=== PATIENT | male | born 1950 | race Caucasian/White ===

== ENCOUNTER 2016-11-07 19:14 | Inpatient (IN) ==
--- NOTE | 2016-11-07 21:27 | XRay Report ---
History: Fever Date: 11/07/2016 Study: Chest x-ray AP portable Comparison exam: April 19, 2016 There is cardiomegaly. The mediastinal contours are unchanged. There is mild ectasia of the thoracic aorta. The patient is status post previous median sternotomy. The pulmonary vasculature is slightly prominent. There is some patchy and hazy infiltrate in the right mid to lower lung more so than the left. There is also some mild platelike atelectasis in the left base.. There is no gross pleural effusion. Osseous structures are unchanged. There is moderate thoracic spondylosis. Impression: Right greater than left bibasilar pneumonia. Platelike atelectasis left lower lobe. Cardiomegaly and suspected mild pulmonary venous hypertension PROCEDURE INTERPRETED AT [facility] DEPARTMENT OF RADIOLOGY Final Report Signed by: Dr. Laura Alexander
[2016-11-07] MEDS ORDERED: ALBUTEROL/IPRATROPIUM 3 ML NEB RESP TX STA (22:07)
[2016-11-07] MEDS ORDERED: cefTRIAXone 1,000 MG in SODIUM CHLORIDE 0.9% 100 ML IV STA (22:08)
[2016-11-07] MEDS ORDERED: ACETAMINOPHEN 325 MG TABLET PO PRN (22:23)
--- NOTE | 2016-11-07 22:32 | Emergency Department Note ---
IAkshat Kasabria, am scribing for, and in the presence of, Zaira Schneider DO 21 :02. IWyatt Debra, DO, personally performed the services described in this documentation, ascribed by Ramiro Oden in my presence, and it is both accurate and complete . Arrival - Arrival Chief Complaint: Fever Stated Complaint: Chills, hot flashes, chest pains ED Nursing Triage Note: C/C fever, aching all over started today. Mode of Arrival: Ambulatory Limitations: No Limitations Source: Patient - History of Present Illness HPI Narrative: This is a 66 y/o white male presenting to the ED with c/o cold, fever, chills, and pedal edema that onset two-three days ago. Pt states he has been sick with a cold and his SOB has increased. Pt is taking breaths between words. He denies chest pain, nausea, vomiting, diarrhea, abdominal pain, dysuria, and SAUCEDO. Pt has a hernia to his abdomen and a PMHx of HTN, diabetes, CHF, CAD, VSD repaired as a child, [place], reoccurring cellulites of the right lower extremity. Onset (ago): day(s) (2-3) Consistency: constant Severity: moderate Allergies/Adverse Reactions: Allergies Allergy/AdvReac Type Severity Reaction Status Date / Time diphenhydramine Allergy RASH Verified 11/07/16 19:22 [From Benadryl] Penicillins Allergy RASH Verified 11/07/16 19:22 Home Medications: Home Medications Medication Instructions Recorded Confirmed Type Furosemide Tab [Lasix Tab] 20 mg PO DAILY 01/04/15 11/07/16 History Docusate Sodium Cap [Colace Cap] 100 mg PO DAILY PRN 04/06/15 11/07/16 History Ferrous Sulfate Tab [Feosol 325 mg PO TID 04/06/15 11/07/16 History Original Tab] Finasteride 5 mg PO DAILY 04/06/15 11/07/16 History Potassium Chloride Cap/Tab [K Dur] 10 meq PO DAILY 04/06/15 11/07/16 History Aspirin EC Tab 81 mg PO DAILY 04/08/15 11/07/16 History Amiodarone HCl [Pacerone] 200 mg PO DAILY 01/31/16 11/07/16 History Atorvastatin Calcium 20 mg PO BEDTIME 01/31/16 11/07/16 History Calcium (Carb)/Vit D 500-200 1 tablet PO TID 01/31/16 11/07/16 History [Oscal 500 + D] Fluticasone 50 Mcg Nasal [place] 2 spray BOTH NARES DAILY 01/31/16 11/07/16 History [Flonase Nasal [place]] Ipratropium 0.03% Nasal [place] 2 spray BOTH NARES TID 01/31/16 11/07/16 History [Atrovent 0.03% Nasal [place]] [place]-3 Fatty Acids [Fish Oil] 1,000 mg PO BID 01/31/16 11/07/16 History Sertraline [Zoloft] 100 mg PO DAILY 01/31/16 11/07/16 History Tamsulosin HCl 0.4 mg PO BID 01/31/16 11/07/16 History sitaGLIPtin [Januvia] 100 mg PO DAILY 01/31/16 11/07/16 History Ketotifen Fumarate [Ketotifen 1 drop BOTH EYES BID 04/16/16 11/07/16 History 0.025% Oph Soln] glipiZIDE [Glucotrol] 10 mg PO BID W/MEALS #60 tablet 04/22/16 11/07/16 Rx Carvedilol [Coreg] 3.125 mg PO BID #60 tablet 07/23/16 11/07/16 Rx Clindamycin HCl [Clindamycin Cap] 300 mg PO Q8HR #20 capsule 07/23/16 11/07/16 Rx Levothyroxine Tab [Synthroid Tab] 200 mcg PO DAILY@0700 #30 tablet 07/23/16 Rx Review of System - Review of System 12 point system: reviewed and no additional remarkable complaints except as stated - Review of System Constitutional: Present: fever. Absent: chills, weakness Eyes: Absent: vision change Head/Ears/Nose/Throat: Absent: nasal drainage Respiratory: Present: cough. Absent: wheezing Cardiovascular: Present: dyspnea on exertion, edema. Absent: chest pain Gastrointestinal: Absent: abdominal pain, nausea, vomiting, diarrhea Genitourinary male: Absent: dysuria Musculoskeletal: Absent: arm pain, back pain, leg pain, neck pain Skin: Absent: rash Neurological: Absent: headache, weakness, numbness, confusion, abnormal gait, vertigo Psychiatric: Absent: anxiety Endocrine: Absent: fatigue Hematological/Lymphatic: Absent: easy bleeding Allergic/Immunologic: Absent: facial swelling Medical,Surgical,& Family Hx - Medical History Cardio: History of: Congenital Heart Disease (VSD repair as child), CHF, CAD, Hypertension, [place], Valvular Heart Disease Psychological: History of: Depression (was hospitalized April 06-- following drug overdose), Previous Suicide Attempt (drug overdose in March 2015 ), Psychiatric Problems (PT reports depressed mood aeb sadness, crying spells, and hopelessness) No history of: Behavior Problems, Violent Behavior Neurology: History of: Cerebrovascular Accident (2010. then a heat stroke also) , Peripheral Neuropathy, TIA HEENT: History of: Ear Problem (HEARING AIDS BOTH EARS) Endocrine: History of: Diabetes Mellitus (IDDM), Diabetes Mellitus (NIDDM), Dyslipidemia, Thyroid Disorder Respiratory: History of: Bronchitis, COPD, Obstructive Sleep Apnea (ON CPAP AT NIGHT), Pneumonia, Respiratory Problems Renal: History of: Renal Problems (renal insufficiency) Genitourinary: History of: Kidney Stones Gastrointestinal: History of: GERD, Polyps No history of: Gastrointestinal Bleed Musculoskeletal: History of: Back/Neck Problems, Musculoskeletal Problems ( right leg problems) No history of: Amputation Hematology: History of: Anemia (chronic disease) Other: History of: Skin Problems (patient has had recurrent cellulitis of his right lower extremity) - Surgical History Cardiac Surgeries: Sugical HX of: Cardiac Catheterization, Cardiac Surgery ( aortic valve replacement in September [address] Jaimes) Thoracic Surgeries: Surgical HX of;: Lithotripsy Patient denies;: Lobectomy Abdominal Surgeries: Surgical HX of: EGD, Hernia Repair (2002) Patient denies: Gastric Bypass Surgery Reproductive Surgeries: Patient denies;: Vasectomy Orthopedic Surgeries: Surgical HX of;: Orthopedic Surgery (left knee surgery) - Family History Family History: Reports;: Family Cancer (SISTER MOTHER), Family Diabetes, Family Heart Disease (SISTER MOTHER), Family Psychiatric Problems (COUSIN ALZHEIMERS) - Social History Smoking Status: Never smoker Frequency of Alcohol Use: None Type of Drug Use: None Exam Vital Signs: Vital Signs Temperature 99.2 F 11/07/16 19:18 Pulse Rate 131 H 11/07/16 19:50 Respiratory Rate 95 H 11/07/16 19:50 Blood Pressure 164/85 11/07/16 19:50 O2 Sat by Pulse Oximetry 95 03/18/17 19:50 - General General appearance: alert, in no apparent distress - Head Head exam: Present: atraumatic, normocephalic, normal inspection - Eye Eye exam: Present: normal appearance, PERRL, EOMI - ENT ENT exam: Present: normal exam, normal oropharynx, mucous membranes moist, TM's normal bilaterally, normal external ear exam - Neck Neck exam: Present: normal inspection, full ROM, trachea midline. Absent: tenderness - Chest Chest inspection: Present: normal inspection, symmetric chest wall rise. Absent : tenderness - Respiratory Respiratory exam: Present: rhonchi (bilaterally ). Absent: normal lung sounds bilaterally - Cardiovascular Cardiovascular exam: Present: regular rate, normal rhythm, normal heart sounds. Absent: irregular rhythm - Abdominal Exam Abdominal exam: Present: soft, normal bowel sounds, hernia (midline ). Absent: tenderness, guarding - Extremities Exam Extremities exam: Present: full ROM, normal capillary refill, pedal edema ( bilaterally +3), other (cellulitis to the right lower extremity ). Absent: tenderness, calf tenderness - Back Exam Back exam: Present: normal inspection, full ROM. Absent: tenderness - Neurological Exam Neurological exam: Present: alert, oriented X3, CN II-XII intact, normal gait, reflexes normal - Psychiatric Psychiatric exam: Present: normal affect, normal mood - Skin Skin exam: Present: warm, dry, intact, normal color. Absent: diaphoresis, erythema Course Course Narrative: spoke with DR Rodriguez who will see pt in the am . Disposition Clinical Impression: Pneumonia Case discussed with: patient Disposition: Still a Patient Condition: Stable Time of Disposition: 22:23
[2016-11-07 22:47] LABS: Basophils % 0.3 % (0.0-0.8); Eosinophils # 0.1 10*3/uL (0.0-0.87); Eosinophils % 0.6 % (0.00-10.9); Hematocrit 44.8 VOL% (42.0-52.0); Hemoglobin 14.7 GM/DL (14.0-18.0); Immature Granulocytes % 1.2 %; Immature Granulocytes Absolute 0.16 #; Lymphocytes # 0.3 10*3/uL (1.4-4.0); Lymphocytes % 2.2 % (21.2-54.2); Mean Corpuscular HGB Conc 32.8 GM/DL (32-36); Mean Corpuscular Hemoglobin 29 PG (27-34); Mean Platelet Volume 13.7 FL (9.6-12.0); Monocytes # 0.9 10*3/uL (0.11-0.8); Monocytes % 6.5 % (1.7-12.7); Neutrophils # 12.1 10*3/uL (1.4-7.4); Neutrophils % 89.2 % (38.7-73.9); Platelet Count 90 T/CUMM (130-400); Red Blood Count 5.09 MC/CUMM (3.8-5.5); Red Cell Distribution Width 13.4 % (9.3-17.3); White Blood Count 13.6 T/CUMM (4-12)
[2016-11-07] MEDS: ALBUTEROL/IPRATROPIUM 3 ML NEB RESP TX SCH (22:55)
[2016-11-07] MEDS ORDERED: cefTRIAXone 1,000 MG VIAL ONE (22:57)
[2016-11-07 23:04] LABS: Albumin 3.8 G/DL (3.4-5.0); Bilirubin,Total 0.7 MG/DL (0.2-1.0); Calcium 8.7 MG/DL (8.5-10.1); Osmolality,Calculated 298.5 MOS/KG (273-304); Potassium 4.1 MMOL/L (3.5-5.1); Total Protein 6.5 G/DL (6.4-8.3)
[2016-11-07] MEDS ORDERED: HYDROcodone/CHLORPHENIRAMINE ER 5 ML UDCUP PO ONE ×2 (23:16→23:17)
[2016-11-07] MEDS ORDERED: INSULIN REGULAR 100 UNIT/ML IV ONE (23:38)
[2016-11-07] MEDS ORDERED: INSULIN REGULAR 100 UNIT/ML ONE (23:45)
[2016-11-08] MEDS ORDERED: ACETAMINOPHEN 500 MG TABLET ONE (00:06)
[2016-11-08] MEDS ORDERED: ACETAMINOPHEN 500 MG TABLET PO ONE (00:07)
[2016-11-08] MEDS ORDERED: SODIUM CHLORIDE 0.9% 1,000 ML IV STA (00:07)
[2016-11-08] MEDS ORDERED: AZITHROMYCIN 500 MG VIAL IV ONE (00:47)
[2016-11-08 01:03] LABS: Band Neutrophils 1 % (0-10); Lymphocytes 4 % (20-55); Platelet Estimate Decreased; Segmented Neutrophils 93 % (50-85); Total Cells Counted 100
[2016-11-08] MEDS: AZITHROMYCIN INJ 500 MG in SODIUM CHLORIDE 0.9% 250 ML IV SCH (01:42)
[2016-11-08] MEDS: ALBUTEROL/IPRATROPIUM 3 ML NEB RESP TX SCH ×6 (03:53→23:36)
[2016-11-08] MEDS ORDERED: DEXTROMETHORPHAN ER 6 MG/ML 90 ML/BOTTLE PO PRN (07:15)
[2016-11-08] MEDS: FLUTICASONE 50 MCG NASAL SPRAY 16 GM BOTTLE BOTH NARES SCH (08:30)
[2016-11-08] MEDS: OMEGA 3 ACID ETHYL ESTERS 1 GM CAPSULE PO SCH ×2 (08:30→23:15)
[2016-11-08] MEDS: TAMSULOSIN 0.4 MG CAPSULE PO SCH ×2 (08:31→23:15)
[2016-11-08] MEDS: PANTOPRAZOLE 40 MG TABLET PO SCH (08:31)
[2016-11-08] MEDS: sitaGLIPtin 100 MG TABLET PO SCH (08:31)
[2016-11-08] MEDS: FERROUS SULFATE 325 MG TABLET PO SCH ×3 (08:31→23:15)
[2016-11-08] MEDS: FINASTERIDE 5 MG TABLET PO SCH (08:31)
[2016-11-08] MEDS: POTASSIUM CHLORIDE 10 MEQ TABLET PO SCH (08:31)
[2016-11-08] MEDS: DOCUSATE SODIUM 100 MG CAPSULE PO SCH ×2 (08:31→23:15)
[2016-11-08] MEDS: ASPIRIN EC 81 MG TABLET PO SCH (08:31)
[2016-11-08] MEDS: BENZONATATE 100 MG CAPSULE PO SCH ×3 (08:31→23:14)
[2016-11-08] MEDS: SERTRALINE 50 MG TABLET PO SCH (08:31)
[2016-11-08] MEDS: glipiZIDE 10 MG TABLET PO SCH ×2 (08:31→18:03)
[2016-11-08] MEDS: CALCIUM (CARBONATE)/VITAMIN D 500 MG-200 UNIT TABLET PO SCH ×3 (08:31→23:14)
[2016-11-08] MEDS: CARVEDILOL 3.125 MG TABLET PO SCH ×2 (08:32→18:03)
[2016-11-08] MEDS: IPRATROPIUM 0.03% NASAL SPRAY 30 ML BOTTLE BOTH NARES SCH ×2 (08:32→14:23)
[2016-11-08] MEDS: AMIODARONE 200 MG TABLET PO SCH (08:32)
[2016-11-08] MEDS: INSULIN REGULAR 100 UNIT/ML SUBCUT SCH ×4 (08:32→23:15)
[2016-11-08] MEDS: ENOXAPARIN 40 MG/0.4 ML SYRINGE SUBCUT SCH (08:32)
[2016-11-08] MEDS: FUROSEMIDE 20 MG TABLET PO SCH (08:32)
[2016-11-08] MEDS ORDERED: KETOTIFEN FUMARATE BOTH EYES SCH (09:00)
--- NOTE | 2016-11-08 09:33 | Pulmonology Consult Note ---
Assessment and Plan (1) Type 2 diabetes mellitus Status: Chronic Assessment and plan: The patient has diabetes and his glucose is elevated Current Visit: No (2) Hypertension Status: Chronic Assessment and plan: Blood pressure will be monitored. Current Visit: No Qualifiers: Hypertension type: essential hypertension Qualified Code(s): I10 - Essential (primary) hypertension (3) Hypothyroidism Status: Chronic Assessment and plan: He will continue with thyroid replacement. Current Visit: No Qualifiers: Hypothyroidism type: acquired Qualified Code(s): E03.9 - Hypothyroidism, unspecified (4) S/P AVR (aortic valve replacement) Status: Chronic Assessment and plan: Patient has had previous heart surgery but is stable Current Visit: No (5) Cellulitis of right leg Status: Acute Assessment and plan: Patient has chronic phlebitis of his legs. Current Visit: No (6) Pneumonia Status: Acute Assessment and plan: He will continue with respiratory therapy and antibiotics. Current Visit: Yes History of Present Illness Chief complaint: Persistent cough History of present illness: Mr. Duarte is a 66 year old white male that is followed by Dr. Harrington and comes in stating that he has had a persistent cough for several weeks. He has a history of having hypertension, hypothyroidism, diabetes and has had previous heart surgery. He says he has never smoked or had any lung problems. The last few days his cough is worse and he may have a little fever. He is admitted for pneumonia. He still coughing a lot but is not having that much trouble breathing. Home Medications Medication Instructions Recorded Confirmed Type Furosemide Tab [Lasix Tab] 20 mg PO DAILY 01/04/15 11/07/16 History Docusate Sodium Cap [Colace Cap] 100 mg PO DAILY PRN 04/06/15 11/07/16 History Ferrous Sulfate Tab [Feosol 325 mg PO TID 04/06/15 11/07/16 History Original Tab] Finasteride 5 mg PO DAILY 04/06/15 11/07/16 History Potassium Chloride Cap/Tab [K Dur] 10 meq PO DAILY 04/06/15 11/07/16 History Aspirin EC Tab 81 mg PO DAILY 04/08/15 11/07/16 History Amiodarone HCl [Pacerone] 200 mg PO DAILY 01/31/16 11/07/16 History Atorvastatin Calcium 20 mg PO BEDTIME 01/31/16 11/07/16 History Calcium (Carb)/Vit D 500-200 1 tablet PO TID 01/31/16 11/07/16 History [Oscal 500 + D] Fluticasone 50 Mcg Nasal [place] 2 spray BOTH NARES DAILY 01/31/16 11/07/16 History [Flonase Nasal [place]] Ipratropium 0.03% Nasal [place] 2 spray BOTH NARES TID 01/31/16 11/07/16 History [Atrovent 0.03% Nasal [place]] [place]-3 Fatty Acids [Fish Oil] 1,000 mg PO BID 01/31/16 11/07/16 History Sertraline [Zoloft] 100 mg PO DAILY 01/31/16 11/07/16 History Tamsulosin HCl 0.4 mg PO BID 01/31/16 11/07/16 History sitaGLIPtin [Januvia] 100 mg PO DAILY 01/31/16 11/07/16 History Ketotifen Fumarate [Ketotifen 1 drop BOTH EYES BID 04/16/16 11/07/16 History 0.025% Oph Soln] glipiZIDE [Glucotrol] 10 mg PO BID W/MEALS #60 tablet 04/22/16 11/07/16 Rx Carvedilol [Coreg] 3.125 mg PO BID #60 tablet 07/23/16 11/07/16 Rx Clindamycin HCl [Clindamycin Cap] 300 mg PO Q8HR #20 capsule 07/23/16 11/07/16 Rx Levothyroxine Tab [Synthroid Tab] 200 mcg PO DAILY@0700 #30 tablet 07/23/16 Rx Allergies Allergy/AdvReac Type Severity Reaction Status Date / Time diphenhydramine Allergy RASH Verified 11/07/16 19:22 [From Benadryl] Penicillins Allergy RASH Verified 11/07/16 19:22 - Constitutional Constitutional: Present: chills, fatigue, fever(s). Absent: weight gain - EENT Eyes: Absent: loss of vision Ears: Absent: decreased hearing Nose, mouth and throat: Absent: dysphagia, headache(s), sinus pressure, sore throat - Cardiovascular Cardiovascular: Present: dyspnea on exertion, edema. Absent: chest pain at rest , dyspnea, palpitations - Respiratory Respiratory: Present: cough, dyspnea on exertion. Absent: hemoptysis, change in phlegm color - Gastrointestinal Gastrointestinal: Absent: abdominal pain, change in bowel habits, dysphagia, nausea, vomiting - Genitourinary Genitourinary: Absent: difficulty urinating, dysuria, hematuria - Musculoskeletal Musculoskeletal: Absent: arthralgias, joint swelling, muscle weakness - Neurological Neurological: Absent: abnormal speech, focal weakness - Psychiatric Psychiatric: Absent: depression Exam ([facility]) H&P - Constitutional Vitals: Period Temp Pulse Resp BP Sys/Handley Pulse Ox Last 24 Hr 98.7 F-99.8 F 110-142 18-25 110-162/58-78 89-99 General appearance: normal weight, no acute distress, other (He does have a harsh cough) - Head Head exam: Present: normal inspection, normocephalic - Eye Eye exam: Present: EOMI. Absent: scleral icterus Pupils: Present: TRENT - ENT ENT exam: Present: normal exam, other (No sinus tenderness) - Neck Neck exam: Absent: lymphadenopathy, thyromegaly - Respiratory Respiratory exam: Present: rhonchi, other (He has good breath sounds bilaterally with some rhonchi present) - Cardiovascular Cardiovascular exam: Present: regular rate and rhythm. Absent: gallop, systolic murmur - GI/Abdominal GI/Abdominal exam: Present: normal bowel sounds, soft. Absent: organomegaly, tenderness - Extremities Exam Extremities exam: Present: edema, other (He does have redness of his right lower extremity). Absent: calf tenderness - Neurological Exam Neurological exam: Present: alert, oriented X3, CN II-XII intact - Psychiatric Psychiatric exam: Present: normal affect - Skin Skin exam: Present: warm, dry Medical,Surgical,& Family Hx - Medical History Cardio: History of: Congenital Heart Disease (VSD repair as child), CHF, CAD, Hypertension, [place], Valvular Heart Disease Psychological: History of: Depression (was hospitalized April 06-- following drug overdose), Previous Suicide Attempt (drug overdose in March 2015 ), Psychiatric Problems (PT reports depressed mood aeb sadness, crying spells, and hopelessness) No history of: Behavior Problems, Violent Behavior Neurology: History of: Cerebrovascular Accident (2010. then a heat stroke also) , Peripheral Neuropathy, TIA HEENT: History of: Ear Problem (HEARING AIDS BOTH EARS) Endocrine: History of: Diabetes Mellitus (IDDM), Diabetes Mellitus (NIDDM), Dyslipidemia, Thyroid Disorder Respiratory: History of: Bronchitis, COPD, Obstructive Sleep Apnea (ON CPAP AT NIGHT), Pneumonia, Respiratory Problems Renal: History of: Renal Problems (renal insufficiency) Genitourinary: History of: Kidney Stones Gastrointestinal: History of: GERD, Polyps No history of: Gastrointestinal Bleed Musculoskeletal: History of: Back/Neck Problems, Musculoskeletal Problems ( right leg problems) No history of: Amputation Hematology: History of: Anemia (chronic disease) Other: History of: Skin Problems (patient has had recurrent cellulitis of his right lower extremity) - Surgical History Cardiac Surgeries: Sugical HX of: Cardiac Catheterization, Cardiac Surgery ( aortic valve replacement in September [address] Jaimes) Thoracic Surgeries: Surgical HX of;: Lithotripsy Patient denies;: Lobectomy Abdominal Surgeries: Surgical HX of: EGD, Hernia Repair (2002) Patient denies: Gastric Bypass Surgery Reproductive Surgeries: Patient denies;: Vasectomy Orthopedic Surgeries: Surgical HX of;: Orthopedic Surgery (left knee surgery) - Family History Family History: Reports;: Family Cancer (SISTER MOTHER), Family Diabetes, Family Heart Disease (SISTER MOTHER), Family Psychiatric Problems (COUSIN ALZHEIMERS) - Social History Smoking Status: Never smoker Frequency of Alcohol Use: None Type of Drug Use: None Results - Labs CBC & BMP: 11/07/16 22:18 11/07/16 22:18 - Diagnostic Findings Procedure: Chest x-ray: image reviewed by me, report reviewed by me (His chest x -ray shows no evidence of heart surgery with a prominent aorta. He does have mild increased interstitial markings.)
[2016-11-08] MEDS ORDERED: guaiFENesin/CODEINE 5 ML LIQUID PO PRN (09:41)
--- NOTE | 2016-11-08 10:39 | Family Practice History&Phys ---
Assessment and Plan (1) Pneumonia Status: Acute Assessment and plan: 11/08/2016: Patient has been put on antibiotics we will add clindamycin for coverage and also for cellulitis Current Visit: Yes (2) Cellulitis of right leg Status: Acute Assessment and plan: 11/08/1978: Patient clearly has recurrent cellulitis (acute on chronic) will start on IV Cleocin. Blood cultures are pending Current Visit: No History of Present Illness Chief complaint: Fever, shortness of breath History of present illness: Mr. Duarte is a 66 year old male Came to the emergency room last night with fever and chills and shortness of breath. These started about 2-3 days ago. Chest x-ray reveals bilateral infiltrate with a slight elevation of white count 13.5. He has what may be bilateral lobe pneumonia with enlarged heart and probable pulmonary venous congestion. In addition, he does have a history of chronic right leg cellulitis which appears to be currently active at present. He has been getting Cleocin 300 mg daily for this. It does have some significant swelling to the leg particularly just below the kneecap down. He has good pulses in that leg on exam. 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 medical history of hypertension, diabetes, congestive heart failure, coronary artery disease, ventricular septal defect defect repair and myocardial infarction. Not have any problems with chest pain, abdominal discomfort (he does have distended abdomen which has been with him for a while but is not having any pain and has been having good bowel and bladder function.). Admit we are going to continue current antibiotics and add Cleocin to him for his leg. He was on p.o. Cleocin we will change it IV. Home Medications Medication Instructions Recorded Confirmed Type Furosemide Tab [Lasix Tab] 20 mg PO DAILY 01/04/15 11/07/16 History Docusate Sodium Cap [Colace Cap] 100 mg PO DAILY PRN 04/06/15 11/07/16 History Ferrous Sulfate Tab [Feosol 325 mg PO TID 04/06/15 11/07/16 History Original Tab] Finasteride 5 mg PO DAILY 04/06/15 11/07/16 History Potassium Chloride Cap/Tab [K Dur] 10 meq PO DAILY 04/06/15 11/07/16 History Aspirin EC Tab 81 mg PO DAILY 04/08/15 11/07/16 History Amiodarone HCl [Pacerone] 200 mg PO DAILY 01/31/16 11/07/16 History Atorvastatin Calcium 20 mg PO BEDTIME 01/31/16 11/07/16 History Calcium (Carb)/Vit D 500-200 1 tablet PO TID 01/31/16 11/07/16 History [Oscal 500 + D] Fluticasone 50 Mcg Nasal [place] 2 spray BOTH NARES DAILY 01/31/16 11/07/16 History [Flonase Nasal [place]] Ipratropium 0.03% Nasal [place] 2 spray BOTH NARES TID 01/31/16 11/07/16 History [Atrovent 0.03% Nasal [place]] [place]-3 Fatty Acids [Fish Oil] 1,000 mg PO BID 01/31/16 11/07/16 History Sertraline [Zoloft] 100 mg PO DAILY 01/31/16 11/07/16 History Tamsulosin HCl 0.4 mg PO BID 01/31/16 11/07/16 History sitaGLIPtin [Januvia] 100 mg PO DAILY 01/31/16 11/07/16 History Ketotifen Fumarate [Ketotifen 1 drop BOTH EYES BID 04/16/16 11/07/16 History 0.025% Oph Soln] glipiZIDE [Glucotrol] 10 mg PO BID W/MEALS #60 tablet 04/22/16 11/07/16 Rx Carvedilol [Coreg] 3.125 mg PO BID #60 tablet 07/23/16 11/07/16 Rx Clindamycin HCl [Clindamycin Cap] 300 mg PO Q8HR #20 capsule 07/23/16 11/07/16 Rx Levothyroxine Tab [Synthroid Tab] 200 mcg PO DAILY@0700 #30 tablet 07/23/16 Rx Allergies Allergy/AdvReac Type Severity Reaction Status Date / Time diphenhydramine Allergy RASH Verified 11/07/16 19:22 [From Benadryl] Penicillins Allergy RASH Verified 11/07/16 19:22 12 point system: reviewed and no additional remarkable complaints except as stated (Except those mentioned in the history and physical exam) Medical,Surgical,& Family Hx - Medical History Cardio: History of: Congenital Heart Disease (VSD repair as child), CHF, CAD, Hypertension, [place], Valvular Heart Disease Psychological: History of: Depression (was hospitalized April 06-- following drug overdose), Previous Suicide Attempt (drug overdose in March 2015 ), Psychiatric Problems (PT reports depressed mood aeb sadness, crying spells, and hopelessness) No history of: Behavior Problems, Violent Behavior Neurology: History of: Cerebrovascular Accident (2010. then a heat stroke also) , Peripheral Neuropathy, TIA HEENT: History of: Ear Problem (HEARING AIDS BOTH EARS) Endocrine: History of: Diabetes Mellitus (IDDM), Diabetes Mellitus (NIDDM), Dyslipidemia, Thyroid Disorder Respiratory: History of: Bronchitis, COPD, Obstructive Sleep Apnea (ON CPAP AT NIGHT), Pneumonia, Respiratory Problems Renal: History of: Renal Problems (renal insufficiency) Genitourinary: History of: Kidney Stones Gastrointestinal: History of: GERD, Polyps No history of: Gastrointestinal Bleed Musculoskeletal: History of: Back/Neck Problems, Musculoskeletal Problems ( right leg problems) No history of: Amputation Hematology: History of: Anemia (chronic disease) Other: History of: Skin Problems (patient has had recurrent cellulitis of his right lower extremity) - Surgical History Cardiac Surgeries: Sugical HX of: Cardiac Catheterization, Cardiac Surgery ( aortic valve replacement in September [address] Jaimes) Thoracic Surgeries: Surgical HX of;: Lithotripsy Patient denies;: Lobectomy Abdominal Surgeries: Surgical HX of: EGD, Hernia Repair (2002) Patient denies: Gastric Bypass Surgery Reproductive Surgeries: Patient denies;: Vasectomy Orthopedic Surgeries: Surgical HX of;: Orthopedic Surgery (left knee surgery) - Family History Family History: Reports;: Family Cancer (SISTER MOTHER), Family Diabetes, Family Heart Disease (SISTER MOTHER), Family Psychiatric Problems (COUSIN ALZHEIMERS) - Social History Smoking Status: Never smoker Frequency of Alcohol Use: None Type of Drug Use: None Exam - Constitutional Vitals: Period Temp Pulse Resp BP Sys/Handley Pulse Ox Last 24 Hr 98.6 F-99.8 F 110-142 18-25 110-162/58-78 89-99 Exam: Very alert and oriented gentleman very pleasant to talk with HEENT pupils equal reactive to light extraocular movements are intact neck is supple trachea midline oropharynx is negative except poor dentition Cardiovascular rate is regular there is 1/6 systolic ejection murmur. No gallops or rub Lungs positive rales and few loose rhonchi with paroxysmal bronchospasms that are infrequent Abdomen soft nondistended Extremities positive swelling of the right lower extremity with evidence of cellulitis Neurologically fully intact Results - Labs CBC & BMP: 11/07/16 22:18 11/07/16 22:18
--- NOTE | 2016-11-08 11:40 | Ultrasound Report ---
History: Right lower extremity swelling Date: 11/08/2016 Study: Right lower extremity color flow venous Doppler study Comparison exam: Venous ultrasound July 20, 2016 Color Doppler, wave form analysis, and compression analysis of the deep veins of both lower extremities from the common femoral vein level through the popliteal vein level shows that the veins are readily compressible. There is no abnormal intraluminal material to suggest thrombus. Waveform analysis is unremarkable. Ultrasound images were captured and archived. There is an enlarged right inguinal lymph node measuring 17 mm short axis diameter. Impression: No evidence of deep venous thrombosis. Nonspecific mild right inguinal lymphadenopathy PROCEDURE INTERPRETED AT [facility] DEPARTMENT OF RADIOLOGY Final Report Signed by: Dr. Laura Alexander
[2016-11-08] MEDS: CLINDAMYCIN INJ 600 MG in PREMIX 1 EACH IV SCH ×2 (11:53→18:03)
[2016-11-08] MEDS: LACTOBACILLUS ACIDOPHILUS/BULGARICUS CAPLET PO SCH (11:53)
--- NOTE | 2016-11-08 14:33 | XRay Report ---
History: Shortness of breath Date: 11/08/2016 Study: Chest x-ray PA lateral Comparison exam: 11/07/2016 There is mild cardiomegaly. Mediastinal contour is unchanged. The pulmonary vasculature is borderline prominent, though improved. There is improved aeration in the lower lungs. There is still some minor residual hazy edema or infiltrate. There is minimal left pleural effusion. Aortic valve prosthesis is noted as before. Osseous structures are unchanged. Impression: Improving bibasilar infiltrate/edema compared to the previous study PROCEDURE INTERPRETED AT [facility] DEPARTMENT OF RADIOLOGY Final Report Signed by: Dr. Laura Alexander
[2016-11-08] MEDS: ONDANSETRON 4 MG/2 ML VIAL IV PRN ×2 (16:04→23:14)
[2016-11-08] MEDS: ATORVASTATIN 20 MG TABLET PO SCH (23:14)
[2016-11-08] MEDS: cefTRIAXone 1,000 MG in SODIUM CHLORIDE 0.9% 100 ML IV SCH (23:14)
[2016-11-09] MEDS: AZITHROMYCIN INJ 500 MG in SODIUM CHLORIDE 0.9% 250 ML IV SCH (01:26)
[2016-11-09] MEDS: ALBUTEROL/IPRATROPIUM 3 ML NEB RESP TX SCH ×6 (03:11→23:48)
[2016-11-09] MEDS: IPRATROPIUM 0.03% NASAL SPRAY 30 ML BOTTLE BOTH NARES SCH ×3 (03:42→14:37)
[2016-11-09] MEDS: CLINDAMYCIN INJ 600 MG in PREMIX 1 EACH IV SCH ×3 (03:53→18:47)
[2016-11-09 05:24] LABS: Basophils # 0.1 10*3/uL (0.0-0.2); Basophils % 0.5 % (0.0-0.8); Eosinophils # 0.1 10*3/uL (0.0-0.87); Eosinophils % 1.1 % (0.00-10.9); Hematocrit 37.4 VOL% (42.0-52.0); Immature Granulocytes % 0.9 %; Lymphocytes # 0.8 10*3/uL (1.4-4.0); Lymphocytes % 7.5 % (21.2-54.2); Mean Corpuscular HGB Conc 32.1 GM/DL (32-36); Mean Corpuscular Hemoglobin 28 PG (27-34); Mean Corpuscular Volume 88.2 FL (87-102); Monocytes # 1.1 10*3/uL (0.11-0.8); Monocytes % 9.7 % (1.7-12.7); Neutrophils # 8.8 10*3/uL (1.4-7.4); Neutrophils % 80.3 % (38.7-73.9); Platelet Count 81 T/CUMM (130-400); Red Blood Count 4.24 MC/CUMM (3.8-5.5); Red Cell Distribution Width 14.1 % (9.3-17.3); White Blood Count 10.9 T/CUMM (4-12)
[2016-11-09 05:50] LABS: Calcium 7.9 MG/DL (8.5-10.1); Magnesium 2.2 MG/DL (1.8-2.4); Osmolality,Calculated 288.8 MOS/KG (273-304); Potassium 3.9 MMOL/L (3.5-5.1)
[2016-11-09 05:54] LABS: Band Neutrophils 8 % (0-10); Eosinophils 1 % (0-10); Lymphocytes 7 % (20-55); Myelocytes 2 %; Segmented Neutrophils 81 % (50-85)
[2016-11-09 05:55] LABS: Platelet Estimate Decreased; Total Cells Counted 100
[2016-11-09] MEDS: LEVOTHYROXINE 200 MCG TABLET PO SCH (06:27)
[2016-11-09] MEDS: INSULIN REGULAR 100 UNIT/ML SUBCUT SCH ×4 (07:57→22:15)
[2016-11-09] MEDS: OMEGA 3 ACID ETHYL ESTERS 1 GM CAPSULE PO SCH ×2 (08:11→22:14)
[2016-11-09] MEDS: ENOXAPARIN 40 MG/0.4 ML SYRINGE SUBCUT SCH (08:11)
[2016-11-09] MEDS: BENZONATATE 100 MG CAPSULE PO SCH ×3 (08:11→22:13)
[2016-11-09] MEDS: glipiZIDE 10 MG TABLET PO SCH ×2 (08:11→17:23)
[2016-11-09] MEDS: CARVEDILOL 3.125 MG TABLET PO SCH ×2 (08:12→17:23)
[2016-11-09] MEDS: CALCIUM (CARBONATE)/VITAMIN D 500 MG-200 UNIT TABLET PO SCH ×3 (08:12→22:14)
[2016-11-09] MEDS: FERROUS SULFATE 325 MG TABLET PO SCH ×3 (08:12→22:13)
[2016-11-09] MEDS: SERTRALINE 50 MG TABLET PO SCH (08:12)
[2016-11-09] MEDS: FUROSEMIDE 20 MG TABLET PO SCH (08:12)
[2016-11-09] MEDS: POTASSIUM CHLORIDE 10 MEQ TABLET PO SCH (08:12)
[2016-11-09] MEDS: DOCUSATE SODIUM 100 MG CAPSULE PO SCH ×2 (08:12→22:13)
[2016-11-09] MEDS: LACTOBACILLUS ACIDOPHILUS/BULGARICUS CAPLET PO SCH (08:12)
[2016-11-09] MEDS: ASPIRIN EC 81 MG TABLET PO SCH (08:12)
[2016-11-09] MEDS: PANTOPRAZOLE 40 MG TABLET PO SCH (08:12)
[2016-11-09] MEDS: AMIODARONE 200 MG TABLET PO SCH (08:12)
[2016-11-09] MEDS: TAMSULOSIN 0.4 MG CAPSULE PO SCH ×2 (08:12→22:14)
[2016-11-09] MEDS: FINASTERIDE 5 MG TABLET PO SCH (08:12)
[2016-11-09] MEDS: sitaGLIPtin 100 MG TABLET PO SCH (08:12)
[2016-11-09] MEDS: FLUTICASONE 50 MCG NASAL SPRAY 16 GM BOTTLE BOTH NARES SCH (08:13)
--- NOTE | 2016-11-09 08:39 | Internal Med Progress Note ---
Assessment and Plan (1) Pneumonia Status: Acute Assessment and plan: 66-year-old male admitted to acute care * Pneumonia. Patient is on broad-spectrum antibiotics and nebulizer treatment. He is doing better * Hypertension. Blood pressure is stable * Cellulitis right lower extremity.. It is a chronic recurrent finding. Continue antibiotics * Obstructive sleep apnea. Continue CPAP * Diabetes. Continue him on his regular medications * Mild fluid overload. Improving * Continue present management Current Visit: Yes (2) Cellulitis of right lower extremity Status: Acute Current Visit: No (3) Chronic renal insufficiency, stage II (mild) Status: Acute Current Visit: No (4) Hypertension Status: Chronic Current Visit: No Qualifiers: Hypertension type: essential hypertension Qualified Code(s): I10 - Essential (primary) hypertension (5) Hypothyroidism Status: Chronic Current Visit: No Qualifiers: Hypothyroidism type: acquired Qualified Code(s): E03.9 - Hypothyroidism, unspecified (6) Obstructive sleep apnea Status: Chronic Current Visit: No (7) S/P AVR (aortic valve replacement) Status: Chronic Current Visit: No (8) Type 2 diabetes mellitus Status: Chronic Current Visit: No Internal Medicine - PN: Subj Interval history: He is feeling better this morning. His breathing has improved. He denies any chest pain. Exam (Progress Note) - Constitutional Vitals: Period Temp Pulse Resp BP Sys/Handley Pulse Ox Last 24 Hr 98.0 F-99.9 F 88-108 16-22 123-136/59-71 95-98 Exam: Examination: GENERAL: Obese white male who is in no acute distress HEENT: PERRLA. EOMI. NECK: Neck is supple. CVS: Regular rate and rhythm. S1 and S2 are normal. Systolic ejection murmur at left upper sternal border RESPIRATORY: Bibasilar rales. Air entry is fair ABDOMEN: Soft and nontender. Bowel sounds are present. No hepatosplenomegaly. Ventral hernia EXT: 2-3+ edema right lower extremity. Peripheral pulses are present. 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 Right lower extremity is warm and swollen MSK: No obvious deformity. Results - Labs CBC & BMP: 11/09/16 05:01 11/09/16 05:01 Lab Results: I have reviewed the past 24 hour labs
--- NOTE | 2016-11-09 09:49 | Pulmonology Progress Note ---
Pulmonary - PN: Subj Interval history: The patient is a 66-year-old white man that has had previous heart surgery. He is a non-smoker. He has diabetes hypertension and hypothyroidism. He came in with a persistent cough and bronchitis. He may have some mild pneumonia. He looks much better today and is sitting up in a chair. He says his cough is better and his shortness of breath is better. He does not appear short of breath now at all. Exam (Progress Note) - Constitutional Vitals: Period Temp Pulse Resp BP Sys/Handley Pulse Ox Last 24 Hr 98.0 F-99.9 F 88-108 16-22 123-136/59-71 95-98 Exam: General appearance: normal weight, no acute distress, other (He is having no distress and his cough is better. ) - Head Head exam: Present: normal inspection, normocephalic - Eye Eye exam: Present: EOMI. Absent: scleral icterus Pupils: Present: TRENT - ENT ENT exam: Present: normal exam, other (No sinus tenderness) - Neck Neck exam: Absent: lymphadenopathy, thyromegaly - Respiratory Respiratory exam: Present: He has good breath sounds bilaterally with some very minimal crackles now. I do not hear any wheezing. - Cardiovascular Cardiovascular exam: Present: regular rate and rhythm. Absent: gallop, systolic murmur - GI/Abdominal GI/Abdominal exam: Present: normal bowel sounds, soft. Absent: organomegaly, tenderness - Extremities Exam Extremities exam: Present: edema, other (He does chronic swelling and redness of his right foreleg.). Absent: calf tenderness - Neurological Exam Neurological exam: Present: alert, oriented X3, CN II-XII intact - Psychiatric Psychiatric exam: Present: normal affect - Skin Skin exam: Present: warm, dry Results - Labs CBC & BMP: 11/09/16 05:01 11/09/16 05:01 Assessment and Plan (1) Type 2 diabetes mellitus Status: Chronic Assessment and plan: The patient has diabetes and his glucose is better today at 102. Current Visit: No (2) Hypertension Status: Chronic Assessment and plan: Blood pressure will be monitored. His blood pressure has been under good control. Current Visit: No Qualifiers: Hypertension type: essential hypertension Qualified Code(s): I10 - Essential (primary) hypertension (3) Hypothyroidism Status: Chronic Assessment and plan: He will continue with thyroid replacement. Current Visit: No Qualifiers: Hypothyroidism type: acquired Qualified Code(s): E03.9 - Hypothyroidism, unspecified (4) S/P AVR (aortic valve replacement) Status: Chronic Assessment and plan: Patient has had previous heart surgery but is stable. He may have been mildly overloaded but he is diuresing okay. 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 Current Visit: No (6) Pneumonia Status: Acute Assessment and plan: He will continue with respiratory therapy and antibiotics. He mainly has bronchitis and is breathing better. Current Visit: Yes
--- NOTE | 2016-11-09 13:00 | General Surgery Consult Note ---
Assessment and Plan - Time spent with patient Time spent with patient: Less than 30 minutes (1) Cellulitis of right lower extremity Status: Acute Assessment and plan: Impression: 1. Marked erythematous changes and swelling of the right lower extremity due to chronic venous stasis disease versus a cellulitis. 2. Coronary artery disease with an aortic valve 3. Chronic obstructive pulmonary disease 4. Obesity moderate Plan: 1. Need to go ahead and start some compressive therapy to that lower extremity get the swelling down and under control. 2. Once swelling is under control we need to get him into some form of compressive wrap that he can do at home and handle himself. 3. Patient indicates he has trouble wearing and using a compressive stockings we may need to see if he can qualify for a Farrow Wrap. Current Visit: No History of Present Illness Chief complaint: Swelling right lower extremity with questionable cellulitis History of present illness: Mr. Duarte is a 66 year old male white who presents with recurrent swelling and erythematous changes of the right lower extremity. He apparently has a history of recurring swelling on his lower extremity with questionable cellulitis. He has had ultrasounds of the veins show no obstruction present this time. I do not have any history of any wounds are injuries to that lower extremity. He has no sores or ulcerations on the foot or legs are healed this time. Patient does have a history of some cardiac and pulmonary problems as well as being overweight. We are asked to see and checked his leg and see what might be able to be done to improve the status. Do not disagree with present antibiotics although I do not think this is a true cellulitis as much is that he is dependent rubor associated with swelling. 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 This is certainly aggravating the swelling that is going on in that lower extremity. He needs to have good compression to this lower extremity in order to get control of this process. Because he lives alone it may be difficult to get him the compression wraps that he need to get keep this under control. Home Medications Medication Instructions Recorded Confirmed Type Furosemide Tab [Lasix Tab] 20 mg PO DAILY 01/04/15 11/07/16 History Docusate Sodium Cap [Colace Cap] 100 mg PO DAILY PRN 04/06/15 11/07/16 History Ferrous Sulfate Tab [Feosol 325 mg PO TID 04/06/15 11/07/16 History Original Tab] Finasteride 5 mg PO DAILY 04/06/15 11/07/16 History Potassium Chloride Cap/Tab [K Dur] 10 meq PO DAILY 04/06/15 11/07/16 History Aspirin EC Tab 81 mg PO DAILY 04/08/15 11/07/16 History Amiodarone HCl [Pacerone] 200 mg PO DAILY 01/31/16 11/07/16 History Atorvastatin Calcium 20 mg PO BEDTIME 01/31/16 11/07/16 History Calcium (Carb)/Vit D 500-200 1 tablet PO TID 01/31/16 11/07/16 History [Oscal 500 + D] Fluticasone 50 Mcg Nasal [place] 2 spray BOTH NARES DAILY 01/31/16 11/07/16 History [Flonase Nasal [place]] Ipratropium 0.03% Nasal [place] 2 spray BOTH NARES TID 01/31/16 11/07/16 History [Atrovent 0.03% Nasal [place]] [place]-3 Fatty Acids [Fish Oil] 1,000 mg PO BID 01/31/16 11/07/16 History Sertraline [Zoloft] 100 mg PO DAILY 01/31/16 11/07/16 History Tamsulosin HCl 0.4 mg PO BID 01/31/16 11/07/16 History sitaGLIPtin [Januvia] 100 mg PO DAILY 01/31/16 11/07/16 History Ketotifen Fumarate [Ketotifen 1 drop BOTH EYES BID 04/16/16 11/07/16 History 0.025% Oph Soln] glipiZIDE [Glucotrol] 10 mg PO BID W/MEALS #60 tablet 04/22/16 11/07/16 Rx Carvedilol [Coreg] 3.125 mg PO BID #60 tablet 07/23/16 11/07/16 Rx Clindamycin HCl [Clindamycin Cap] 300 mg PO Q8HR #20 capsule 07/23/16 11/07/16 Rx Levothyroxine Tab [Synthroid Tab] 200 mcg PO DAILY@0700 #30 tablet 07/23/16 Rx Allergies Allergy/AdvReac Type Severity Reaction Status Date / Time diphenhydramine Allergy RASH Verified 11/07/16 19:22 [From Benadryl] Penicillins Allergy RASH Verified 11/07/16 19:22 Medical,Surgical,& Family Hx - Medical History Cardio: History of: 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 then a heat stroke also) , Peripheral Neuropathy, TIA HEENT: History of: Ear Problem (HEARING AIDS BOTH EARS) Endocrine: History of: Diabetes Mellitus (IDDM), Diabetes Mellitus (NIDDM), Dyslipidemia, Thyroid Disorder Respiratory: History of: Bronchitis, COPD, Obstructive Sleep Apnea (ON CPAP AT NIGHT), Pneumonia, Respiratory Problems Renal: History of: Renal Problems (renal insufficiency) Genitourinary: History of: Kidney Stones Gastrointestinal: History of: GERD, Polyps No history of: Gastrointestinal Bleed Musculoskeletal: History of: Back/Neck Problems, Musculoskeletal Problems ( right leg problems) No history of: Amputation Hematology: History of: Anemia (chronic disease) Other: History of: Skin Problems (patient has had recurrent cellulitis of his right lower extremity) - Surgical History Cardiac Surgeries: Sugical HX of: Cardiac Catheterization, Cardiac Surgery ( aortic valve replacement in September [address] Jaimes) Thoracic Surgeries: Surgical HX of;: Lithotripsy Patient denies;: Lobectomy Abdominal Surgeries: Surgical HX of: EGD, Hernia Repair (2002) Patient denies: Gastric Bypass Surgery Reproductive Surgeries: Patient denies;: Vasectomy Orthopedic Surgeries: Surgical HX of;: Orthopedic Surgery (left knee surgery) - Family History Family History: Reports;: Family Cancer (SISTER MOTHER), Family Diabetes, Family Heart Disease (SISTER MOTHER), Family Psychiatric Problems ([place]) - Social History Smoking Status: Never smoker Frequency of Alcohol Use: None Type of Drug Use: None 12 point system: reviewed and no additional remarkable complaints except as stated Exam - Constitutional Vitals: Period Temp Pulse Resp BP Sys/Handley Pulse Ox Last 24 Hr 98.0 F-99.9 F 62-107 16-22 106-140/60-97 92-98 General appearance: mild distress - Head Head exam: Present: normal inspection - ENT ENT exam: Present: normal exam - Neck Neck exam: Present: normal inspection - Respiratory Respiratory exam: Present: rales, rhonchi - Cardiovascular Cardiovascular exam: Present: RRR - GI/Abdominal GI/Abdominal exam: Present: normal bowel sounds, soft - Extremities Exam Extremities exam: Present: normal inspection (Of the left lower extremity.), edema (Marked swelling of the right lower extremity from the knee down to include the dorsum of the foot. There is a generalized erythematous change present but there is no evidence of any tissue breakdown or ulceration of the legs or blistering or anything between the toes or on the heels at this time.) - Back Exam Back exam: Present: normal inspection - Neurological Exam Neurological exam: Present: alert, oriented X3, CN II-XII intact - Skin Skin exam: Present: normal color, warm, dry Results - Labs CBC & BMP: 11/09/16 05:01 11/09/16 05:01 Lab Results: I have reviewed the past 24 hour labs
[2016-11-09] MEDS: cefTRIAXone 1,000 MG in SODIUM CHLORIDE 0.9% 100 ML IV SCH (22:08)
[2016-11-09] MEDS: ATORVASTATIN 20 MG TABLET PO SCH (22:14)
[2016-11-10] MEDS: IPRATROPIUM 0.03% NASAL SPRAY 30 ML BOTTLE BOTH NARES SCH ×4 (00:07→21:39)
[2016-11-10] MEDS: ALBUTEROL/IPRATROPIUM 3 ML NEB RESP TX SCH ×6 (02:55→23:43)
[2016-11-10] MEDS: CLINDAMYCIN INJ 600 MG in PREMIX 1 EACH IV SCH ×3 (03:00→18:49)
[2016-11-10] MEDS: LEVOTHYROXINE 200 MCG TABLET PO SCH (07:06)
[2016-11-10] MEDS: INSULIN REGULAR 100 UNIT/ML SUBCUT SCH ×4 (07:49→22:32)
--- NOTE | 2016-11-10 08:01 | General Surgery Progress Note ---
Assessment and Plan - Time spent with patient Time spent with patient: Less than 30 minutes (1) Cellulitis of right lower extremity Status: Acute Assessment and plan: Impression: 1. Marked erythematous changes and swelling of the right lower extremity due to chronic venous stasis disease versus a cellulitis. 2. Coronary artery disease with an aortic valve 3. Chronic obstructive pulmonary disease 4. Obesity moderate Plan: 1. Need to go ahead and start some compressive therapy to that lower extremity get the swelling down and under control. 2. Once swelling is under control we need to get him into some form of compressive wrap that he can do at home and handle himself. 3. Patient indicates he has trouble wearing and using a compressive stockings we may need to see if he can qualify for a Farrow Wrap. 11/10/2016 Patient's leg is slightly better he does have a stocking in place but I had ordered wraps on the patient which was not performed. Hoping to get him a fair wrap that will help this leg at some point but I need to get this edema down if I can. I have informed the nurses to get involved and get his wrappings done so we can get the swelling down at this time. Current Visit: No Subjective Patient reports: Present: feels better, other (Dressing was not properly done on the patient yesterday) Exam - Constitutional Vitals: Period Temp Pulse Resp BP Sys/Handley Pulse Ox Last 24 Hr 98.2 F-98.6 F 62-105 17-20 106-140/60-97 92-99 General appearance: mild distress - Head Head exam: Present: normal inspection - ENT ENT exam: Present: normal exam - Neck Neck exam: Present: normal inspection - Respiratory Respiratory exam: Present: clear to auscultation bilaterally, rales - Cardiovascular Cardiovascular exam: Present: RRR - GI/Abdominal GI/Abdominal exam: Present: normal bowel sounds, soft - Extremities Exam Extremities exam: Present: normal inspection, edema (Still with good bit of edema in the right lower extremity did not have the wrap that had ordered on the patient in place) - Back Exam Back exam: Present: normal inspection - Neurological Exam Neurological exam: Present: alert, oriented X3, CN II-XII intact - Skin Skin exam: Present: normal color, warm, dry Results - Labs CBC & BMP: 11/09/16 05:01 11/09/16 05:01 Lab Results: I have reviewed the past 24 hour labs
[2016-11-10] MEDS ORDERED: SKIN HEALING OINT (AQUAPHOR) 50 GM TUBE TOP PRN (08:09)
--- NOTE | 2016-11-10 08:24 | Internal Med Progress Note ---
Assessment and Plan (1) Pneumonia Status: Acute Assessment and plan: 66-year-old male admitted to acute care * Pneumonia. His lungs sound much better. Continue antibiotic * Hypertension. Blood pressure is stable * Cellulitis right lower extremity. Mildly decreased swelling. Continue treatment * Obstructive sleep apnea. Continue CPAP * Diabetes. Continue him on his regular medications * Continue present management Current Visit: Yes (2) Cellulitis of right lower extremity Status: Acute Current Visit: No (3) Chronic renal insufficiency, stage II (mild) Status: Acute Current Visit: No (4) Hypertension Status: Chronic Current Visit: No Qualifiers: Hypertension type: essential hypertension Qualified Code(s): I10 - Essential (primary) hypertension (5) Hypothyroidism Status: Chronic Current Visit: No Qualifiers: Hypothyroidism type: acquired Qualified Code(s): E03.9 - Hypothyroidism, unspecified (6) Obstructive sleep apnea Status: Chronic Current Visit: No (7) S/P AVR (aortic valve replacement) Status: Chronic Current Visit: No (8) Type 2 diabetes mellitus Status: Chronic Current Visit: No Internal Medicine - PN: Subj Interval history: He is feeling better this morning. His breathing has improved. He felt feverish last night Exam (Progress Note) - Constitutional Vitals: Period Temp Pulse Resp BP Sys/Handley Pulse Ox Last 24 Hr 98.2 F-98.3 F 62-97 17-20 121-140/64-97 93-99 Exam: Examination: GENERAL: No acute distress NECK: Neck is supple. CVS: Regular rate and rhythm. S1 and S2 are normal. Systolic ejection murmur at left upper sternal border RESPIRATORY: Bibasilar rales. Air entry is fair ABDOMEN: Soft and nontender. Bowel sounds are present. No hepatosplenomegaly. Ventral hernia EXT: 2-3+ edema right lower extremity. Peripheral pulses are present. 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 Still has erythema of the right lower extremity Results - Labs CBC & BMP: 11/09/16 05:01 11/09/16 05:01 Lab Results: I have reviewed the past 24 hour labs
[2016-11-10] MEDS: AZITHROMYCIN INJ 500 MG in SODIUM CHLORIDE 0.9% 250 ML IV SCH (09:27)
[2016-11-10] MEDS: ENOXAPARIN 40 MG/0.4 ML SYRINGE SUBCUT SCH (09:27)
[2016-11-10] MEDS: TAMSULOSIN 0.4 MG CAPSULE PO SCH ×2 (09:28→21:36)
[2016-11-10] MEDS: FERROUS SULFATE 325 MG TABLET PO SCH ×3 (09:28→21:35)
[2016-11-10] MEDS: ASPIRIN EC 81 MG TABLET PO SCH (09:28)
[2016-11-10] MEDS: BENZONATATE 100 MG CAPSULE PO SCH ×3 (09:28→21:35)
[2016-11-10] MEDS: PANTOPRAZOLE 40 MG TABLET PO SCH (09:28)
[2016-11-10] MEDS: FINASTERIDE 5 MG TABLET PO SCH (09:28)
[2016-11-10] MEDS: LACTOBACILLUS ACIDOPHILUS/BULGARICUS CAPLET PO SCH (09:28)
[2016-11-10] MEDS: SERTRALINE 50 MG TABLET PO SCH (09:28)
[2016-11-10] MEDS: OMEGA 3 ACID ETHYL ESTERS 1 GM CAPSULE PO SCH ×2 (09:29→21:37)
[2016-11-10] MEDS: POTASSIUM CHLORIDE 10 MEQ TABLET PO SCH (09:29)
[2016-11-10] MEDS: CALCIUM (CARBONATE)/VITAMIN D 500 MG-200 UNIT TABLET PO SCH ×3 (09:29→21:37)
[2016-11-10] MEDS: glipiZIDE 10 MG TABLET PO SCH ×2 (09:29→17:02)
[2016-11-10] MEDS: CARVEDILOL 3.125 MG TABLET PO SCH ×2 (09:29→17:02)
[2016-11-10] MEDS: sitaGLIPtin 100 MG TABLET PO SCH (09:29)
[2016-11-10] MEDS: DOCUSATE SODIUM 100 MG CAPSULE PO SCH ×2 (09:29→21:35)
[2016-11-10] MEDS: FUROSEMIDE 20 MG TABLET PO SCH (09:29)
[2016-11-10] MEDS: AMIODARONE 200 MG TABLET PO SCH (09:29)
[2016-11-10] MEDS: FLUTICASONE 50 MCG NASAL SPRAY 16 GM BOTTLE BOTH NARES SCH (09:30)
--- NOTE | 2016-11-10 11:49 | Pulmonology Progress Note ---
Pulmonary - PN: Subj Interval history: The patient is a 66-year-old white man that has had previous heart surgery. He is a non-smoker. He has diabetes hypertension and hypothyroidism. He came in with a persistent cough and bronchitis. He may have some mild pneumonia. He looks much better today and is sitting up in a chair. He says his cough is better and overall he is feeling better. He said he felt warm last night but no fever. He is not having any chest pain or shortness of breath now. Exam (Progress Note) - Constitutional Vitals: Period Temp Pulse Resp BP Sys/Handley Pulse Ox Last 24 Hr 97.6 F-98.6 F 62-109 17-20 121-140/61-97 2-99 Exam: General appearance: normal weight, no acute distress, other (He is having no distress and his cough is better. He looks much more comfortable) - Head Head exam: Present: normal inspection, normocephalic - Eye Eye exam: Present: EOMI. Absent: scleral icterus Pupils: Present: TRENT - ENT ENT exam: Present: normal exam, other (No sinus tenderness) - Neck Neck exam: Absent: lymphadenopathy, thyromegaly - Respiratory Respiratory exam: Present: He has good breath sounds bilaterally and is moving air well in his lungs sound better. - Cardiovascular Cardiovascular exam: Present: regular rate and rhythm. Absent: gallop, systolic murmur - GI/Abdominal GI/Abdominal exam: Present: normal bowel sounds, soft. Absent: organomegaly, tenderness - Extremities Exam Extremities exam: Present: edema, other (He does have chronic swelling and redness of his right foreleg.). Absent: calf tenderness - Neurological Exam Neurological exam: Present: alert, oriented X3, CN II-XII intact - Psychiatric Psychiatric exam: Present: normal affect - Skin Skin exam: Present: warm, dry Results - Labs CBC & BMP: 11/09/16 05:01 11/09/16 05:01 Assessment and Plan (1) Type 2 diabetes mellitus Status: Chronic Assessment and plan: The patient has diabetes and his glucose is better today at 123. Current Visit: No (2) Hypertension Status: Chronic Assessment and plan: Blood pressure will be monitored. His blood pressure has been under good control. Current Visit: No Qualifiers: Hypertension type: essential hypertension Qualified Code(s): I10 - Essential (primary) hypertension (3) Hypothyroidism Status: Chronic Assessment and plan: He will continue with thyroid replacement. Current Visit: No Qualifiers: Hypothyroidism type: acquired Qualified Code(s): E03.9 - Hypothyroidism, unspecified (4) S/P AVR (aortic valve replacement) Status: Chronic Assessment and plan: Patient has had previous heart surgery but is stable. He may have been mildly overloaded but he is diuresing okay. His breathing is much better now. 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 Current Visit: No (6) Pneumonia Status: Acute Assessment and plan: He will continue with respiratory therapy and antibiotics. He mainly has bronchitis and is breathing better. His cough is better and he looks comfortable. I will check a chest x-ray tomorrow. Current Visit: Yes
[2016-11-10] MEDS: ATORVASTATIN 20 MG TABLET PO SCH (21:46)
[2016-11-10] MEDS: cefTRIAXone 1,000 MG in SODIUM CHLORIDE 0.9% 100 ML IV SCH (21:47)
[2016-11-11] MEDS: CLINDAMYCIN INJ 600 MG in PREMIX 1 EACH IV SCH ×3 (03:48→18:29)
[2016-11-11] MEDS: ALBUTEROL/IPRATROPIUM 3 ML NEB RESP TX SCH ×5 (03:48→20:09)
[2016-11-11] MEDS: LEVOTHYROXINE 200 MCG TABLET PO SCH (06:57)
--- NOTE | 2016-11-11 07:58 | Pulmonology Progress Note ---
Pulmonary - PN: Subj Interval history: The patient is a 66-year-old white man that has had previous heart surgery. He is a non-smoker. He has diabetes hypertension and hypothyroidism. He came in with a persistent cough and bronchitis. He may have some mild pneumonia. He has done better each day and today he feels much better. I do not hear him coughing at all. He does not seem to be short of breath at all. His chest x- ray is probably back to baseline now. Exam (Progress Note) - Constitutional Vitals: Period Temp Pulse Resp BP Sys/Handley Pulse Ox Last 24 Hr 97.6 F-98.6 F 74-102 18-21 122-156/62-90 92-99 Exam: General appearance: normal weight, no acute distress, other (He is comfortable sitting up in a chair and in no distress.) - Head Head exam: Present: normal inspection, normocephalic - Eye Eye exam: Present: EOMI. Absent: scleral icterus Pupils: Present: TRENT - ENT ENT exam: Present: normal exam, other (No sinus tenderness) - Neck Neck exam: Absent: lymphadenopathy, thyromegaly - Respiratory Respiratory exam: Present: He has good breath sounds bilaterally and is moving air well and his lungs sound better. He has slightly diminished breath sounds in the left base. - Cardiovascular Cardiovascular exam: Present: regular rate and rhythm. Absent: gallop, systolic murmur - GI/Abdominal GI/Abdominal exam: Present: normal bowel sounds, soft. Absent: organomegaly, tenderness - Extremities Exam Extremities exam: Present: edema, other (He does have chronic swelling and redness of his right foreleg.). Absent: calf tenderness - Neurological Exam Neurological exam: Present: alert, oriented X3, CN II-XII intact - Psychiatric Psychiatric exam: Present: normal affect - Skin Skin exam: Present: warm, dry Results - Labs CBC & BMP: 11/09/16 05:01 11/09/16 05:01 - Diagnostic Findings Procedure: Chest x-ray: image reviewed by me, report reviewed by me (His chest x -ray is better. He has chronic changes in the left base. Otherwise the lung paris are clear) Assessment and Plan (1) Type 2 diabetes mellitus Status: Chronic Assessment and plan: The patient has diabetes and his glucose is 182. Current Visit: No (2) Hypertension Status: Chronic Assessment and plan: Blood pressure will be monitored. His blood pressure has been under good control. Current Visit: No Qualifiers: Hypertension type: essential hypertension Qualified Code(s): I10 - Essential (primary) hypertension (3) Hypothyroidism Status: Chronic Assessment and plan: He will continue with thyroid replacement. Current Visit: No Qualifiers: Hypothyroidism type: acquired Qualified Code(s): E03.9 - Hypothyroidism, unspecified (4) S/P AVR (aortic valve replacement) Status: Chronic Assessment and plan: Patient has had previous heart surgery but is stable. He may have been mildly overloaded but he is diuresing okay. His breathing is much better now. His chest x-ray does not show heart failure now. 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 Current Visit: No (6) Pneumonia Status: Acute Assessment and plan: He will continue with respiratory therapy and antibiotics. He mainly has bronchitis and is breathing better. His cough is better and he looks comfortable. His chest x-ray is probably close to baseline. He mainly has bronchitis and overall he is much better. He can go home at any time. Current Visit: Yes
--- NOTE | 2016-11-11 07:59 | General Surgery Progress Note ---
Assessment and Plan - Time spent with patient Time spent with patient: Less than 30 minutes (1) Cellulitis of right lower extremity Status: Acute Assessment and plan: Impression: 1. Marked erythematous changes and swelling of the right lower extremity due to chronic venous stasis disease versus a cellulitis. 2. Coronary artery disease with an aortic valve 3. Chronic obstructive pulmonary disease 4. Obesity moderate Plan: 1. Need to go ahead and start some compressive therapy to that lower extremity get the swelling down and under control. 2. Once swelling is under control we need to get him into some form of compressive wrap that he can do at home and handle himself. 3. Patient indicates he has trouble wearing and using a compressive stockings we may need to see if he can qualify for a Farrow Wrap. 11/10/2016 Patient's leg is slightly better he does have a stocking in place but I had ordered wraps on the patient which was not performed. Hoping to get him a fair wrap that will help this leg at some point but I need to get this edema down if I can. I have informed the nurses to get involved and get his wrappings done so we can get the swelling down at this time. 11/11/2016 Patient's leg is better swelling is down almost to the same size as the left. Erythematous changes are almost resolved. Trying to get the fair wraps here so that we can establish a plan for him once he leaves so that we can keep this under control. Current Visit: No Subjective Patient reports: Present: no new complaints, tolerating a regular diet, bowel movement, afebrile Exam - Constitutional Vitals: Period Temp Pulse Resp BP Sys/Handley Pulse Ox Last 24 Hr 97.6 F-98.6 F 74-102 18-21 122-156/62-90 92-99 General appearance: no acute distress - Head Head exam: Present: normal inspection - ENT ENT exam: Present: normal exam - Neck Neck exam: Present: normal inspection - Respiratory Respiratory exam: Present: clear to auscultation bilaterally, rales - Cardiovascular Cardiovascular exam: Present: RRR - GI/Abdominal GI/Abdominal exam: Present: hypoactive bowel sounds, soft - Extremities Exam Extremities exam: Present: other (Swelling of the right lower extremity is much improved with compression at this time and the erythematous changes are almost resolved.) - Back Exam Back exam: Present: normal inspection - Neurological Exam Neurological exam: Present: alert, oriented X3, CN II-XII intact - Skin Skin exam: Present: normal color, warm, dry Results - Labs CBC & BMP: 11/09/16 05:01 11/09/16 05:01 Lab Results: I have reviewed the past 24 hour labs
--- NOTE | 2016-11-11 08:12 | XRay Report ---
XR chest 2V Date: 11/11/2016 4:00 AM History: Pneumonia Comparison: 11/08/2016 Technique: PA and lateral chest Findings: The heart is minimally enlarged with prior median sternotomy and cardiac valve replacement. Calcification in the aortic knob with minimal dilatation of the aorta. Azygos lobe. Reduced parenchymal findings in the lungs with residual small left pleural effusion. Persistent pleural thickening bilaterally especially laterally on the left. Stable mediastinum with degenerative changes. Impression: Improved bilateral pneumonia with residual small left pleural effusion. Status post median sternotomy with cardiac valve replacement. PROCEDURE INTERPRETED AT [facility] DEPARTMENT OF RADIOLOGY Final Report Signed by: Dr. Fatemeh Song
--- NOTE | 2016-11-11 09:05 | Internal Med Progress Note ---
Assessment and Plan (1) Pneumonia Status: Acute Assessment and plan: 66-year-old male admitted to acute care * Pneumonia. His chest x-ray looks much better. He has improved * Hypertension. Blood pressure is stable * Cellulitis right lower extremity. Decreased swelling after wrapping was done. Patient does have a device at home. This compresses his right lower extremity for 1-2 hours a day * Obstructive sleep apnea. Continue CPAP * Diabetes. Continue him on his regular medications * Hopefully home in the morning Current Visit: Yes (2) Cellulitis of right lower extremity Status: Acute Current Visit: No (3) Chronic renal insufficiency, stage II (mild) Status: Acute Current Visit: No (4) Hypertension Status: Chronic Current Visit: No Qualifiers: Hypertension type: essential hypertension Qualified Code(s): I10 - Essential (primary) hypertension (5) Hypothyroidism Status: Chronic Current Visit: No Qualifiers: Hypothyroidism type: acquired Qualified Code(s): E03.9 - Hypothyroidism, unspecified (6) Obstructive sleep apnea Status: Chronic Current Visit: No (7) S/P AVR (aortic valve replacement) Status: Chronic Current Visit: No (8) Type 2 diabetes mellitus Status: Chronic Current Visit: No Internal Medicine - PN: Subj Interval history: He is feeling better this morning. He is not coughing as before. No chest pain or shortness of breath. Denies any pain in his right lower extremity Exam (Progress Note) - Constitutional Vitals: Period Temp Pulse Resp BP Sys/Handley Pulse Ox Last 24 Hr 97.7 F-98.6 F 74-92 18-21 122-156/62-90 92-100 Exam: Examination: GENERAL: No acute distress NECK: Neck is supple. CVS: Regular rate and rhythm. Systolic ejection murmur at left upper sternal border RESPIRATORY: Much better air entry ABDOMEN: Soft and nontender. EXT: 1+ edema right lower extremity. Peripheral pulses are present. RESIDENT ASSISTANT CNA: Nonfocal SKIN: Warm and dry. Decreased erythema in the right lower extremity Results - Labs CBC & BMP: 11/09/16 05:01 11/09/16 05:01
[2016-11-11] MEDS: ENOXAPARIN 40 MG/0.4 ML SYRINGE SUBCUT SCH (09:38)
[2016-11-11] MEDS: AZITHROMYCIN INJ 500 MG in SODIUM CHLORIDE 0.9% 250 ML IV SCH (09:38)
[2016-11-11] MEDS: OMEGA 3 ACID ETHYL ESTERS 1 GM CAPSULE PO SCH ×2 (09:39→21:47)
[2016-11-11] MEDS: TAMSULOSIN 0.4 MG CAPSULE PO SCH ×2 (09:39→21:47)
[2016-11-11] MEDS: CALCIUM (CARBONATE)/VITAMIN D 500 MG-200 UNIT TABLET PO SCH ×3 (09:39→21:47)
[2016-11-11] MEDS: LACTOBACILLUS ACIDOPHILUS/BULGARICUS CAPLET PO SCH (09:39)
[2016-11-11] MEDS: BENZONATATE 100 MG CAPSULE PO SCH ×3 (09:39→21:47)
[2016-11-11] MEDS: SERTRALINE 50 MG TABLET PO SCH (09:39)
[2016-11-11] MEDS: DOCUSATE SODIUM 100 MG CAPSULE PO SCH ×2 (09:39→21:47)
[2016-11-11] MEDS: FUROSEMIDE 20 MG TABLET PO SCH (09:39)
[2016-11-11] MEDS: sitaGLIPtin 100 MG TABLET PO SCH (09:40)
[2016-11-11] MEDS: FERROUS SULFATE 325 MG TABLET PO SCH ×3 (09:40→21:47)
[2016-11-11] MEDS: glipiZIDE 10 MG TABLET PO SCH ×2 (09:40→17:11)
[2016-11-11] MEDS: FINASTERIDE 5 MG TABLET PO SCH (09:40)
[2016-11-11] MEDS: ASPIRIN EC 81 MG TABLET PO SCH (09:40)
[2016-11-11] MEDS: PANTOPRAZOLE 40 MG TABLET PO SCH (09:40)
[2016-11-11] MEDS: POTASSIUM CHLORIDE 10 MEQ TABLET PO SCH (09:40)
[2016-11-11] MEDS: AMIODARONE 200 MG TABLET PO SCH (09:40)
[2016-11-11] MEDS: CARVEDILOL 3.125 MG TABLET PO SCH ×2 (09:40→17:11)
[2016-11-11] MEDS: FLUTICASONE 50 MCG NASAL SPRAY 16 GM BOTTLE BOTH NARES SCH (09:45)
[2016-11-11] MEDS: IPRATROPIUM 0.03% NASAL SPRAY 30 ML BOTTLE BOTH NARES SCH ×3 (09:49→21:49)
[2016-11-11] MEDS: INSULIN REGULAR 100 UNIT/ML SUBCUT SCH ×4 (09:51→21:49)
[2016-11-11] MEDS: ATORVASTATIN 20 MG TABLET PO SCH (21:47)
[2016-11-11] MEDS: cefTRIAXone 1,000 MG in SODIUM CHLORIDE 0.9% 100 ML IV SCH (21:53)
[2016-11-12] MEDS: ALBUTEROL/IPRATROPIUM 3 ML NEB RESP TX SCH ×4 (00:09→10:35)
[2016-11-12] MEDS: CLINDAMYCIN INJ 600 MG in PREMIX 1 EACH IV SCH ×2 (02:39→11:32)
[2016-11-12 03:14] LABS: Calcium 7.8 MG/DL (8.5-10.1); Osmolality,Calculated 290.8 MOS/KG (273-304)
[2016-11-12 03:19] LABS: Basophils % 0.5 % (0.0-0.8); Eosinophils # 0.3 10*3/uL (0.0-0.87); Hematocrit 36.7 VOL% (42.0-52.0); Immature Granulocytes % 1.4 %; Immature Granulocytes Absolute 0.09 #; Lymphocytes # 1.1 10*3/uL (1.4-4.0); Lymphocytes % 17.2 % (21.2-54.2); Mean Corpuscular HGB Conc 32.7 GM/DL (32-36); Mean Corpuscular Hemoglobin 28 PG (27-34); Mean Corpuscular Volume 86.8 FL (87-102); Mean Platelet Volume 12.6 FL (9.6-12.0); Monocytes # 0.7 10*3/uL (0.11-0.8); Monocytes % 10.1 % (1.7-12.7); Neutrophils # 4.4 10*3/uL (1.4-7.4); Neutrophils % 66.8 % (38.7-73.9); Platelet Count 119 T/CUMM (130-400); Red Blood Count 4.23 MC/CUMM (3.8-5.5); Red Cell Distribution Width 13.5 % (9.3-17.3); White Blood Count 6.5 T/CUMM (4-12)
[2016-11-12] MEDS: LEVOTHYROXINE 200 MCG TABLET PO SCH (07:15)
[2016-11-12] MEDS: INSULIN REGULAR 100 UNIT/ML SUBCUT SCH ×2 (08:10→11:32)
--- NOTE | 2016-11-12 08:11 | General Surgery Progress Note ---
Assessment and Plan - Time spent with patient Time spent with patient: Less than 30 minutes (1) Cellulitis of right lower extremity Status: Acute Assessment and plan: Impression: 1. Marked erythematous changes and swelling of the right lower extremity due to chronic venous stasis disease versus a cellulitis. 2. Coronary artery disease with an aortic valve 3. Chronic obstructive pulmonary disease 4. Obesity moderate Plan: 1. Need to go ahead and start some compressive therapy to that lower extremity get the swelling down and under control. 2. Once swelling is under control we need to get him into some form of compressive wrap that he can do at home and handle himself. 3. Patient indicates he has trouble wearing and using a compressive stockings we may need to see if he can qualify for a Farrow Wrap. 11/10/2016 Patient's leg is slightly better he does have a stocking in place but I had ordered wraps on the patient which was not performed. Hoping to get him a fair wrap that will help this leg at some point but I need to get this edema down if I can. I have informed the nurses to get involved and get his wrappings done so we can get the swelling down at this time. 11/11/2016 Patient's leg is better swelling is down almost to the same size as the left. Erythematous changes are almost resolved. Trying to get the fair wraps here so that we can establish a plan for him once he leaves so that we can keep this under control. 11/12/2016. I feel that it is okay to discharge patient today now that he has is Farrow wraps in place. Will follow him up in couple weeks since he has basically doing. I have given him specific instructions on how to try to manage his work and his chronic swelling in his lower extremities in order to try to control it as best he can. Current Visit: No Subjective Patient reports: Present: no new complaints, tolerating a regular diet, afebrile Exam - Constitutional Vitals: Period Temp Pulse Resp BP Sys/Handley Pulse Ox Last 24 Hr 98.2 F-98.9 F 74-85 18-22 138-151/67-86 93-98 General appearance: no acute distress - Head Head exam: Present: normal inspection - Neck Neck exam: Present: normal inspection - Respiratory Respiratory exam: Present: clear to auscultation bilaterally, rales - Cardiovascular Cardiovascular exam: Present: RRR - GI/Abdominal GI/Abdominal exam: Present: soft - Extremities Exam Extremities exam: Present: other (Erythema is pretty much resolved right lower extremity and the edema appears to be under good control with compressive dressings.) - Back Exam Back exam: Present: normal inspection - Neurological Exam Neurological exam: Present: alert, oriented X3, CN II-XII intact - Skin Skin exam: Present: normal color, warm, dry Results - Labs CBC & BMP: 11/12/16 01:38 11/12/16 01:38 Lab Results: I have reviewed the past 24 hour labs Specialty Discharge - Follow Up or Referrals Follow up with: Joe Fritz MD [Physician] - 1 Month - Speciality Discharge Instructions Surgery Instructions: 1. Patient should plan to shower at night. 2. Patient does not need to wear his wraps at night when he is in bed. 3. Patient needs to have his Farrow wraps by his bedside so that he can put those own before getting out of the bed every morning. 4. Patient needs to try to control prolonged sitting with legs hanging down. 5. Since he has to drive to work I have encouraged him to set it aside times when he can get out of the car and walk around. 6. Patient needs to plan some times throughout the day where he can lay down and elevate the legs. 7. If the legs began to hurt with the wraps in place he needs to elevate rather than loosen the wraps
[2016-11-12] MEDS: TAMSULOSIN 0.4 MG CAPSULE PO SCH (09:10)
[2016-11-12] MEDS: ENOXAPARIN 40 MG/0.4 ML SYRINGE SUBCUT SCH (09:10)
[2016-11-12] MEDS: POTASSIUM CHLORIDE 10 MEQ TABLET PO SCH (09:10)
[2016-11-12] MEDS: glipiZIDE 10 MG TABLET PO SCH (09:10)
[2016-11-12] MEDS: LACTOBACILLUS ACIDOPHILUS/BULGARICUS CAPLET PO SCH (09:10)
[2016-11-12] MEDS: ASPIRIN EC 81 MG TABLET PO SCH (09:10)
[2016-11-12] MEDS: FINASTERIDE 5 MG TABLET PO SCH (09:10)
[2016-11-12] MEDS: BENZONATATE 100 MG CAPSULE PO SCH ×2 (09:10→15:03)
[2016-11-12] MEDS: FUROSEMIDE 20 MG TABLET PO SCH (09:11)
[2016-11-12] MEDS: FERROUS SULFATE 325 MG TABLET PO SCH ×2 (09:11→15:03)
[2016-11-12] MEDS: SERTRALINE 50 MG TABLET PO SCH (09:11)
[2016-11-12] MEDS: DOCUSATE SODIUM 100 MG CAPSULE PO SCH (09:11)
[2016-11-12] MEDS: PANTOPRAZOLE 40 MG TABLET PO SCH (09:11)
[2016-11-12] MEDS: sitaGLIPtin 100 MG TABLET PO SCH (09:11)
[2016-11-12] MEDS: CALCIUM (CARBONATE)/VITAMIN D 500 MG-200 UNIT TABLET PO SCH ×2 (09:11→15:03)
[2016-11-12] MEDS: CARVEDILOL 3.125 MG TABLET PO SCH (09:12)
[2016-11-12] MEDS: OMEGA 3 ACID ETHYL ESTERS 1 GM CAPSULE PO SCH (09:12)
[2016-11-12] MEDS: IPRATROPIUM 0.03% NASAL SPRAY 30 ML BOTTLE BOTH NARES SCH ×2 (09:13→15:03)
[2016-11-12] MEDS: FLUTICASONE 50 MCG NASAL SPRAY 16 GM BOTTLE BOTH NARES SCH (09:13)
[2016-11-12] MEDS: AMIODARONE 200 MG TABLET PO SCH (09:21)
[2016-11-12] MEDS: AZITHROMYCIN INJ 500 MG in SODIUM CHLORIDE 0.9% 250 ML IV SCH (09:21)
--- NOTE | 2016-11-12 09:46 | Discharge Summary ---
Hospital Course - Hospital Course Hospital Course: Patient is 66-year-old male with history of multiple medical problems including congenital heart disease, diabetes, hypertension, renal insufficiency, A. fib, recurrent cellulitis of right lower extremity who was admitted with shortness of breath and possible pneumonia. He also had cellulitis of right lower extremity. Patient was started on antibiotics. He was seen in consultation by pulmonary medicine and surgery. He has improved with IV antibiotics. His cellulitis is also improved. He is close to his baseline. He will be discharged home. He will follow-up with Dr. Fritz in few weeks. I will also see him in office with some labs. He has Farrow wraps in place. Diagnosis - Discharge Diagnosis (1) Pneumonia Status: Acute (2) Cellulitis of right lower extremity Status: Acute (3) Chronic renal insufficiency, stage II (mild) Status: Acute (4) Hypertension Status: Chronic (5) Hypothyroidism Status: Chronic (6) Obstructive sleep apnea Status: Chronic (7) S/P AVR (aortic valve replacement) Status: Chronic (8) Type 2 diabetes mellitus Status: Chronic Specialty Discharge - Follow Up or Referrals Follow up with: Joe Fritz MD [Physician] - 1 Month Discharge Plan - Discharge Data Disposition: Disch To Home/Self Care Condition at Discharge: Stable Discharge Diet: diabetic diet Activity: resume usual activities as tolerated - Discharge Medications Continue Furosemide Tab [Lasix Tab] 20 mg PO DAILY Ferrous Sulfate Tab [Feosol Original Tab] 325 mg PO TID Docusate Sodium Cap [Colace Cap] 100 mg PO DAILY PRN PRN Reason: Constipation Finasteride 5 mg PO DAILY Potassium Chloride Cap/Tab [K Dur] 10 meq PO DAILY Ipratropium 0.03% Nasal [place] [Atrovent 0.03% Nasal [place]] 2 spray BOTH NARES TID Fluticasone 50 Mcg Nasal [place] [Flonase Nasal [place]] 2 spray BOTH NARES DAILY sitaGLIPtin [Januvia] 100 mg PO DAILY Amiodarone HCl [Pacerone] 200 mg PO DAILY Calcium (Carb)/Vit D 500-200 [Oscal 500 + D] 1 tablet PO TID Atorvastatin Calcium 20 mg PO BEDTIME [place]-3 Fatty Acids [Fish Oil] 1,000 mg PO BID Tamsulosin HCl 0.4 mg PO BID Sertraline [Zoloft] 100 mg PO DAILY Ketotifen Fumarate [Ketotifen 0.025% Oph Soln] 1 drop BOTH EYES BID glipiZIDE [Glucotrol] 10 mg PO BID W/MEALS #60 tablet Carvedilol [Coreg] 3.125 mg PO BID #60 tablet Clindamycin HCl [Clindamycin Cap] 300 mg PO Q8HR #20 capsule Levothyroxine Tab [Synthroid Tab] 200 mcg PO DAILY@0700 #30 tablet Aspirin EC Tab 81 mg PO DAILY - Follow Up or Referral Follow Up: Joe Fritz MD [Physician] - 1 Month - Forms/Instructions Additional Discharge Instructions: Appointment in office in 3-4 weeks with CBC BMP TSH. Call in clindamycin 300 mg 3 times daily for 7 days to patient's pharmacy Exam - Constitutional Vitals: Period Temp Pulse Resp BP Sys/Handley Pulse Ox Last 24 Hr 98.2 F-98.9 F 74-85 18-22 138-151/67-86 93-98 Exam: Examination: GENERAL: No acute distress NECK: Neck is supple. CVS: Regular rate and rhythm. Systolic ejection murmur at left upper sternal border RESPIRATORY: Clear bilaterally ABDOMEN: Soft and nontender. EXT: 1+ edema right lower extremity. Peripheral pulses are present. CLINICAL MICROBIOLOGIST: Nonfocal SKIN: Warm and dry. Decreased erythema in the right lower extremity Discharge Results Labs on day of discharge: Labs from last 24 hours 11/12/16 11/12/16 11/12/16 07:32 01:38 01:38 WBC 6.5 D RBC 4.23 Hgb 12.0 L Hct 36.7 L MCV 86.8 L MCH 28 MCHC 32.7 RDW 13.5 Plt Count 119 L D MPV 12.6 H Neut % (Auto) 66.8 Lymph % (Auto) 17.2 L Holmes % (Auto) 10.1 Eos % (Auto) 4.0 Baso % (Auto) 0.5 Neut # (Auto) 4.4 Lymph # (Auto) 1.1 L Holmes # (Auto) 0.7 Eos # (Auto) 0.3 Baso # (Auto) 0.0 Immature Gran % 1.4 Nucleated RBC % 0.0 Immature Gran # 0.09 Nucleated RBCs # 0.00 Sodium 144 Potassium 4.0 Chloride 104 Carbon Dioxide 30 Anion Gap 14.0 BUN 17 Creatinine 1.30 GFR Calculation 73 BUN/Creatinine Ratio 13.00 Glucose 145 H POC Glucose 149 H Calculated Osmolality 290.8 Calcium 7.8 L 11/11/16 11/11/16 11/11/16 19:51 15:47 10:53 WBC RBC Hgb Hct MCV MCH MCHC RDW Plt Count MPV Neut % (Auto) Lymph % (Auto) Holmes % (Auto) Eos % (Auto) Baso % (Auto) Neut # (Auto) Lymph # (Auto) Holmes # (Auto) Eos # (Auto) Baso # (Auto) Immature Gran % Nucleated RBC % Immature Gran # Nucleated RBCs # Sodium Potassium Chloride Carbon Dioxide Anion Gap BUN Creatinine GFR Calculation BUN/Creatinine Ratio Glucose POC Glucose 174 H 183 H 157 H Calculated Osmolality Calcium DS: Provider Date of admission: 11/07/16 22:23 Primary care physician: Christopher Harrington MD Attending physician on admission: Christopher Harrington MD Consults: 11/08/16 07:24 Consult to Physician [CONS] Routine Comment: bilateral pneumonia Consulting Provider: Blas Mccullough Person Notified: Dr. Pattie Mccullough Date Notified: 11/08/16 Time Notified: 09:04 11/09/16 11:22 Consult to Physician [CONS] Routine Comment: Consulting Provider: Joe Fritz Person Notified: elba Date Notified: 11/09/16 Time Notified: 10:50 11/09/16 12:05 Consult to Wound Care - [place] [CONS] Routine Reason for Wound Care: Wound Care Management 11/09/16 12:53 Consult to Wound Care - [place] [CONS] Routine Reason for Wound Care: Wound Care Management Consult Comment: right lower extremity swelling. 11/09/16 12:57 Consult to Physical Therapy [CONS] Routine Reason for Physical Therapy: Evaluate and Treat Start Therapy: Today Consult Comment: Ambulate patient twice a day into the burroughs 11/09/16 13:04 Consult to Case Mgmt/Social Srvs [CONS] Routine Reason for Case Mgmt/Social Srvs: Equipment Other Consult Comment: See if patient can get Farrow wraps Discharging clinician: Christopher Harrington MD
--- NOTE | 2016-11-12 10:41 | Pulmonology Progress Note ---
Pulmonary - PN: Subj Interval history: The patient is a 66-year-old white man that has had previous heart surgery. He is a non-smoker. He has diabetes hypertension and hypothyroidism. He came in with a persistent cough and bronchitis. He may have some mild pneumonia. He has done better each day and today he feels much better. I do not hear him coughing at all. He does not seem to be short of breath at all. His chest x- ray is probably back to baseline now. He did well through the night and his breathing is still much better. His cough is improved. His right leg swelling is much better. He is planning on going home this afternoon. Exam (Progress Note) - Constitutional Vitals: Period Temp Pulse Resp BP Sys/Handley Pulse Ox Last 24 Hr 98.0 F-98.9 F 74-85 18-22 138-151/67-86 93-98 Exam: General appearance: normal weight, no acute distress, other (He is comfortable sitting up in a chair and in no distress.) - Head Head exam: Present: normal inspection, normocephalic - Eye Eye exam: Present: EOMI. Absent: scleral icterus Pupils: Present: TRENT - ENT ENT exam: Present: normal exam, other (No sinus tenderness) - Neck Neck exam: Absent: lymphadenopathy, thyromegaly - Respiratory Respiratory exam: Present: He has good breath sounds bilaterally and is moving air well and his lungs sound better. He has slightly diminished breath sounds in the left base. - Cardiovascular Cardiovascular exam: Present: regular rate and rhythm. Absent: gallop, systolic murmur - GI/Abdominal GI/Abdominal exam: Present: normal bowel sounds, soft. Absent: organomegaly, tenderness - Extremities Exam Extremities exam: Present: edema, the right leg swelling looks much better . There is much less redness also. - Neurological Exam Neurological exam: Present: alert, oriented X3, CN II-XII intact - Psychiatric Psychiatric exam: Present: normal affect - Skin Skin exam: Present: warm, dry Results - Labs CBC & BMP: 11/12/16 01:38 11/12/16 01:38 Assessment and Plan (1) Type 2 diabetes mellitus Status: Chronic Assessment and plan: The patient has diabetes and his glucose is 149. Current Visit: No (2) Hypertension Status: Chronic Assessment and plan: Blood pressure will be monitored. His blood pressure has been under good control. Current Visit: No Qualifiers: Hypertension type: essential hypertension Qualified Code(s): I10 - Essential (primary) hypertension (3) Hypothyroidism Status: Chronic Assessment and plan: He will continue with thyroid replacement. Current Visit: No Qualifiers: Hypothyroidism type: acquired Qualified Code(s): E03.9 - Hypothyroidism, unspecified (4) S/P AVR (aortic valve replacement) Status: Chronic Assessment and plan: Patient has had previous heart surgery but is stable. He may have been mildly overloaded but he is diuresing okay. His breathing is much better now. His chest x-ray does not show heart failure now. 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 Right leg swelling and redness is much improved. Current Visit: No (6) Pneumonia Status: Acute Assessment and plan: He will continue with respiratory therapy and antibiotics. He mainly has bronchitis and is breathing better. His cough is better and he looks comfortable. He can take antibiotics at home. Overall he is much improved. Current Visit: Yes Specialty Discharge - Follow Up or Referrals Follow up with: Christopher Harrington MD [Primary Care Provider] - 12/14/16 3:15 pm Joe Fritz MD [Physician] - 12/14/16 9:00 am
[2016-11-12 16:08] VITALS: BP 153/95
== END 2016-11-12 16:24 | disposition home or self-care (01) | DRG 190 ==
LOC: N.ED 19:14 → N.EDINP 22:23 → N.2E 23:07
PROVIDERS: ADMIT Internal Medicine; ATTEND Internal Medicine

== ENCOUNTER 2017-03-01 15:33 | Inpatient (IN) ==
--- NOTE | 2017-03-01 15:52 | EKG Report ---
Stationary ECG Study [facility] ER Test Date: 03/01/2017 3:48:57 PM Pat Name: JORGE HANEY Department: Room: Gender: M Dolly Driver: Izabella Caldwell : 1950 Requested by: Elidia Alexandre Order Number: [id number] Reading MD: CABRERA ESCAMILLA Intervals [place] Rate: 124 P: 999 WI: 0 QRS: 90 QRSD: 101 T: 80 QT: 299 QTc: 373 Interpretive Statements Probable sinus tachycardia with PACs at 124 bpm Early repolarization WI WP NST Electronically Signed On 03-01-17 16:30:36 CDT by CABRERA ESCAMILLA [email or web address]
[2017-03-01] MEDS ORDERED: SODIUM CHLORIDE 0.9% 1,000 ML IV STA (17:57)
[2017-03-01] MEDS ORDERED: LEVOFLOXACIN INJ 750 MG in PREMIX 1 EACH IV STA (17:59)
--- NOTE | 2017-03-01 18:02 | EKG Report ---
Stationary ECG Study [facility] ER Test Date: 03/01/2017 3:50:02 PM Pat Name: JORGE HANEY Department: Room: Gender: M Clinical Nursing Director: Izabella Caldwell : 1950 Requested by: Rigoberto Goncalves Order Number: [id number] Arnold MD: CABRERA ESCAMILLA Intervals [place] Rate: 122 P: 266 ND: 141 QRS: 89 QRSD: 102 T: 75 QT: 303 QTc: 376 Interpretive Statements PROBABLE SINUS TACHYCARDIA WITH PACS AT 122 BPM ND WP EARLY REPOLARIZATION NST Electronically Signed On 03-02-17 07:20:07 CDT by CABRERA ESCAMILLA [email or web address]
--- NOTE | 2017-03-01 18:05 | Emergency Department Note ---
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 Blood sugar in triage 209. Mode of Arrival: Wheelchair Limitations: No Limitations Source: Patient - History of Present Illness Onset (ago): hour(s) (Patient presents approximately 2 hours post onset of symptoms) <Rigoberto Hanna - Last Filed: 03/01/17 19:43> <Vel Goodman - Last Filed: 03/01/17 20:56> - Arrival Chief Complaint: Syncope Stated Complaint: WEAKNESS, LEG SWOLLEN, HR HIGH, BP HIGH Time Seen by Provider: 03/01/17 17:57 - History of Present Illness HPI Narrative: This 67-year-old white male presents with a history of nearly passing out approximately 2 hours ago while outside in the heat helping his friend with his yard. The patient originally planned to help him cut the yard and do landscaping and in the process of that broke his friend's water pipe. This required a prolonged period and exposed sunlight working to repair the water pipe. Although successful in repairing a water pipe, after completion the patient felt extremely weak saw stars and was spinning and nearly passed out. Following this the patient was taken to the hospital. Right now he appears flushed in with a temperature of 101. He denies any dysuria, urgency, frequency , drop in stream, cough productive of sputum, sinus complaints, nausea, vomiting , diarrhea, or skin infections currently. His temperature comes after at least 90 minutes in a cool room. Currently he continues to feel weak but is otherwise without complaint. (Rigoberto Hanna) Allergies/Adverse Reactions: Allergies Allergy/AdvReac Type Severity Reaction Status Date / Time diphenhydramine Allergy RASH Verified 11/07/16 19:22 [From Benadryl] Penicillins Allergy RASH Verified 11/07/16 19:22 Home Medications: Home Medications Medication Instructions Recorded Confirmed Type Furosemide Tab [Lasix Tab] 40 mg PO DAILY 01/04/15 12/03/16 History Docusate Sodium Cap [Colace Cap] 100 mg PO DAILY PRN 04/06/15 12/03/16 History Ferrous Sulfate Tab [Feosol 325 mg PO TID 04/06/15 12/03/16 History Original Tab] Finasteride 5 mg PO DAILY 04/06/15 12/03/16 History Potassium Chloride Cap/Tab [K Dur] 10 meq PO DAILY 04/06/15 12/03/16 History Aspirin EC Tab 81 mg PO DAILY 04/08/15 12/03/16 History Amiodarone HCl [Pacerone] 200 mg PO DAILY 01/31/16 12/03/16 History Atorvastatin Calcium 20 mg PO BEDTIME 01/31/16 12/03/16 History Calcium (Carb)/Vit D 500-200 1 tablet PO TID 01/31/16 12/03/16 History [Oscal 500 + D] Fluticasone 50 Mcg Nasal [place] 2 spray BOTH NARES DAILY 01/31/16 12/03/16 History [Flonase Nasal [place]] Ipratropium 0.03% Nasal [place] 2 spray BOTH NARES TID 01/31/16 12/03/16 History [Atrovent 0.03% Nasal [place]] [place]-3 Fatty Acids [Fish Oil] 1,000 mg PO BID 01/31/16 12/03/16 History Sertraline [Zoloft] 100 mg PO DAILY 01/31/16 12/03/16 History Tamsulosin HCl 0.4 mg PO BID 01/31/16 12/03/16 History sitaGLIPtin [Januvia] 100 mg PO DAILY 01/31/16 12/03/16 History Ketotifen Fumarate [Ketotifen 1 drop BOTH EYES BID 04/16/16 12/03/16 History 0.025% Oph Soln] glipiZIDE [Glucotrol] 10 mg PO BID W/MEALS #60 tablet 04/22/16 12/03/16 Rx Carvedilol [Coreg] 3.125 mg PO BID #60 tablet 07/23/16 12/03/16 Rx Levothyroxine Tab [Synthroid Tab] 200 mcg PO DAILY@0700 #30 tablet 07/23/16 Rx Clindamycin HCl [Clindamycin Cap] 300 mg PO Q6HR #14 capsule 12/08/16 Rx Review of System - Review of System 12 point system: reviewed and no additional remarkable complaints except as stated - Review of System Constitutional: Present: as per HPI Respiratory: Present: as per HPI Cardiovascular: Present: as per HPI Gastrointestinal: Present: as per HPI Genitourinary male: Present: as per HPI Musculoskeletal: Present: as per HPI Neurological: Present: as per HPI <Rigoberto Hanna W - Last Filed: 03/01/17 19:43> Medical,Surgical,& Family Hx - Medical History Cardio: History of: 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 then a heat stroke also) , Peripheral Neuropathy, TIA HEENT: History of: Ear Problem (HEARING AIDS BOTH EARS) Endocrine: History of: Diabetes Mellitus (IDDM), Dyslipidemia, Thyroid Disorder No history of: Diabetes Mellitus (NIDDM) Respiratory: History of: Bronchitis, COPD, Obstructive Sleep Apnea (ON CPAP AT NIGHT), Pneumonia, Respiratory Problems Renal: History of: Renal Problems (renal insufficiency) Genitourinary: History of: Kidney Stones Gastrointestinal: History of: GERD, Polyps No history of: Gastrointestinal Bleed Musculoskeletal: History of: Back/Neck Problems (CHRONIC (ARTHRITIS)), Musculoskeletal Problems (right leg problems) No history of: Amputation Hematology: History of: Anemia (chronic disease) Other: History of: Skin Problems (patient has had recurrent cellulitis of his right lower extremity) - Surgical History Cardiac Surgeries: Sugical HX of: Cardiac Catheterization, Cardiac Surgery ( aortic valve replacement in September [address] Jaimes) Thoracic Surgeries: Surgical HX of;: Lithotripsy Patient denies;: Lobectomy HEENT Surgeries: Patient denies: Thyroid Surgery Abdominal Surgeries: Surgical HX of: EGD, Hernia Repair (2002) Patient denies: Gastric Bypass Surgery Reproductive Surgeries: Patient denies;: Vasectomy Orthopedic Surgeries: Surgical HX of;: Orthopedic Surgery (left knee surgery) - Family History Family History: Reports;: Family Cancer (SISTER MOTHER), Family Diabetes (DAD), Family Heart Disease (SISTER MOTHER), Family Hypertension (MOM,DAD), Family Psychiatric Problems (COUSIN ALZHEIMERS) Denies;: Family Anesthesia Reaction, Family Stroke - Social History Smoking Status: Never smoker <Rigoberto Hanna W - Last Filed: 03/01/17 19:43> Exam <Rigoberto Hanna - Last Filed: 03/01/17 19:43> <Vel Goodman - Last Filed: 03/01/17 20:56> Physical Examination: GENERAL: Well developed, well nourished elderly white male in no acute distress. HEENT: Normocephalic. No trauma. Moist mucous membranes. EOMI. PERRLA. ENT NML NECK: Supple. No adenopathy. CARDIAC: Regular. No murmurs. Heart rate 104 CHEST: Clear to auscultation. No respiratory distress. O2 sat 94% ABDOMEN: Soft. Nontender. Active bowel sounds. EXTREMITIES: No trauma. Normal ROM. Trace edema right ankle SKIN: No diaphoresis. No rash. NEURO: Alert. No focal deficits. (Rigoberto Hanna) Vital Signs: Vital Signs Temperature 101.0 F H 03/01/17 17:51 Pulse Rate 116 H 03/01/17 18:30 Respiratory Rate 22 03/01/17 18:30 Blood Pressure 141/83 03/01/17 18:30 O2 Sat by Pulse Oximetry 95 03/01/17 18:30 Course <Rigoberto Hanna - Last Filed: 03/01/17 19:43> <Vel Goodman - Last Filed: 03/01/17 20:56> Course Narrative: I have seen and examined this patient and agree with the note by Dr. Hanna. After I took over his care his was a count came out 19,000 and had a little bit of renal dysfunction creatinine of 2.1. He was complaining of right leg cellulitis which he has been admitted for in the past and was likely the source of his infection. I gave him clindamycin in the ER which is something that he is responded to before and he was admitted to Dr. Harrington. I spoke with Dr. Amisha Mccullough and she agreed to the admission he will see her in the morning we will repeat his labs in the a.m. I do not think he needs an ICU bed at this time. (Vel Goodman) Results - Labs CBC & BMP: 03/01/17 18:39 03/01/17 18:39 - Diagnostic Findings Procedure: Chest x-ray: image reviewed by me, report reviewed by me (Left lower lobe atelectasis), CT: image reviewed by me, report reviewed by me (Head: Right frontal encephalomalacia and diffuse microvascular ischemia) <Rigoberto Hanna - Last Filed: 03/01/17 19:43> - Labs CBC & BMP: 03/01/17 18:39 03/01/17 18:39 <Vel Goodman - Last Filed: 03/01/17 20:56> - Impressions EKG: First-degree AV block at 120, normal QRS duration, nonspecific ST changes no acute injury pattern noted. Old septal infarct noted versus poor R-wave progression. (Rigoberto Hanna) Disposition <Rigoberto Hanna - Last Filed: 03/01/17 19:43> Case discussed with: patient Time of Disposition: 20:56 <Vel Goodman - Last Filed: 03/01/17 20:56> Clinical Impression: Cellulitis of right lower extremity Disposition: Still a Patient Condition: Stable
--- NOTE | 2017-03-01 18:28 | XRay Report ---
2 view chest. Indication: Shortness of breath. Comparison: December 02, 2016. The heart is normal in size. There is a mitral valve replacement. Post median sternotomy. There is dilatation of the thoracic aorta, similar to the previous study. There is new atelectasis in the left lung base. There is an azygos lobe. The pulmonary vasculature is normal. There is no infiltrate. Bridging osteophytes within the thoracic spine. Impression: Development of left basilar atelectasis. Aneurysmal dilatation of the thoracic aorta, stable. PROCEDURE INTERPRETED AT [facility] DEPARTMENT OF RADIOLOGY Final Report Signed by: Dr. Ana Galindo
--- NOTE | 2017-03-01 18:30 | CT Report ---
CT of the head without contrast. Indication: Syncope. There is generalized prominence of the ventricles and sulci consistent with atrophy of aging. There is calcific plaque within the intracranial internal carotid arteries and left vertebral artery. Within the white matter of both cerebral hemispheres, there are prominent areas of low density. There is a stable appearance of encephalomalacia in the right frontal lobe. There is no mass effect or midline shift. There is no evidence of acute hemorrhage. Impression: 1. Rather extensive white matter low density. While this is typically seen with chronic microvascular ischemia. The findings are quite pronounced for a patient of 67, unless there is chronic hypertension or uncontrolled diabetes. Other considerations including demyelinating processes, and post viral and postinflammatory entities as well as vasculitis should be considered. 2. Encephalomalacia in the right frontal lobe, small. This could be from previous traumatic injury to the brain or from previous ischemic injury. The CT exam was performed using one or more of the following dose reduction techniques: Automated exposure control, adjustment of the mA and/or kV according to patient size, or use of iterative reconstruction technique. PROCEDURE INTERPRETED AT [facility] DEPARTMENT OF RADIOLOGY Final Report Signed by: Dr. Ana Galindo
[2017-03-01] MEDS ORDERED: LEVOFLOXACIN INJ 150 ML IV ONE (18:43)
[2017-03-01 19:03] LABS: Basophils # 0.1 10*3/uL (0.0-0.2); Basophils % 0.3 % (0.0-0.8); Eosinophils % 0.2 % (0.00-10.9); Hematocrit 45.9 VOL% (42.0-52.0); Hemoglobin 15.4 GM/DL (14.0-18.0); Immature Granulocytes Absolute 0.37 #; Lymphocytes # 0.5 10*3/uL (1.4-4.0); Lymphocytes % 2.6 % (21.2-54.2); Mean Corpuscular HGB Conc 33.6 GM/DL (32-36); Mean Corpuscular Hemoglobin 29 PG (27-34); Mean Corpuscular Volume 85.8 FL (87-102); Mean Platelet Volume 13.2 FL (9.6-12.0); Monocytes # 1.6 10*3/uL (0.11-0.8); Monocytes % 8.2 % (1.7-12.7); Neutrophils # 16.4 10*3/uL (1.4-7.4); Neutrophils % 86.7 % (38.7-73.9); Platelet Count 93 T/CUMM (130-400); Red Blood Count 5.35 MC/CUMM (3.8-5.5); Red Cell Distribution Width 14.7 % (9.3-17.3); White Blood Count 18.9 T/CUMM (4-12)
[2017-03-01 19:37] LABS: Alanine Aminotransferase 14 U/L (16-61); Albumin 3.4 G/DL (3.4-5.0); Alkaline Phosphatase 99 U/L (45-117); Aspartate Amino Transferase 11 U/L (0-37); Calcium 8.5 MG/DL (8.5-10.1); Total Protein 7.1 G/DL (6.4-8.3)
[2017-03-01 19:38] LABS: Blood Urea Nitrogen 15 MG/DL (7-18); Glucose 237 MG/DL (74-106); Osmolality,Calculated 278.1 MOS/KG (273-304); Potassium 3.7 MMOL/L (3.5-5.1); Sodium 135 MMOL/L (136-145); Troponin I Only < 0.015 NG/ML (0.00-0.045)
[2017-03-01 20:13] LABS: Band Neutrophils 2 % (0-10); Lymphocytes 6 % (20-55); Platelet Estimate Decreased; Segmented Neutrophils 89 % (50-85); Total Cells Counted 100
[2017-03-01] MEDS ORDERED: CLINDAMYCIN INJ 900 MG in PREMIX 1 EACH IV STA (20:52)
[2017-03-01] MEDS ORDERED: CLINDAMYCIN INJ 50 ML IV ONE (21:58)
[2017-03-01] MEDS ORDERED: GLUCAGON 1 MG VIAL IM PRN (23:24)
[2017-03-01] MEDS ORDERED: ONDANSETRON 4 MG/2 ML VIAL IV PRN (23:24)
[2017-03-01] MEDS ORDERED: PROMETHAZINE 25 MG TABLET PO PRN (23:24)
[2017-03-01] MEDS ORDERED: DEXTROSE 50% 25 GM/50 ML VIAL IV PRN (23:24)
[2017-03-01] MEDS ORDERED: MORPHINE 2 MG/1 ML SYRINGE IV PRN (23:24)
[2017-03-01] MEDS: INSULIN REGULAR 100 UNIT/ML SUBCUT SCH (23:47)
[2017-03-01] MEDS: DOCUSATE SODIUM 100 MG CAPSULE PO SCH (23:47)
[2017-03-02] MEDS: SODIUM CHLORIDE 0.9% 1,000 ML IV SCH ×4 (00:21→17:45)
[2017-03-02 06:07] LABS: Basophils % 0.2 % (0.0-0.8); Eosinophils % 0.1 % (0.00-10.9); Hematocrit 39.7 VOL% (42.0-52.0); Hemoglobin 13.4 GM/DL (14.0-18.0); Immature Granulocytes Absolute 0.14 #; Lymphocytes # 0.8 10*3/uL (1.4-4.0); Mean Corpuscular HGB Conc 33.8 GM/DL (32-36); Mean Corpuscular Hemoglobin 29 PG (27-34); Mean Corpuscular Volume 87.1 FL (87-102); Mean Platelet Volume 13.1 FL (9.6-12.0); Monocytes # 0.7 10*3/uL (0.11-0.8); Monocytes % 5.5 % (1.7-12.7); Neutrophils # 11.7 10*3/uL (1.4-7.4); Neutrophils % 87.2 % (38.7-73.9); Platelet Count 73 T/CUMM (130-400); Red Blood Count 4.56 MC/CUMM (3.8-5.5); Red Cell Distribution Width 14.9 % (9.3-17.3); White Blood Count 13.4 T/CUMM (4-12)
[2017-03-02] MEDS: CLINDAMYCIN INJ 900 MG in PREMIX 1 EACH IV SCH ×3 (06:21→22:17)
[2017-03-02 06:34] LABS: Calcium 7.7 MG/DL (8.5-10.1); Osmolality,Calculated 280.5 MOS/KG (273-304); Potassium 3.8 MMOL/L (3.5-5.1)
[2017-03-02 07:46] LABS: Band Neutrophils 1 % (0-10); Hypochromasia Slight; Lymphocytes 5 % (20-55); Platelet Estimate Decreased; Segmented Neutrophils 87 % (50-85); Total Cells Counted 100
--- NOTE | 2017-03-02 08:12 | General Surgery Consult Note ---
Assessment and Plan - Time spent with patient Time spent with patient: Less than 30 minutes (1) Cellulitis of right lower extremity Status: Acute Assessment and plan: Impression: Cellulitis of the right lower extremity part related to his chronic venous stasis disease. Plan: Agree with present antibiotics and will resume some compressive therapy. Current Visit: No (2) Venous stasis dermatitis of right lower extremity Status: Acute Current Visit: Yes (3) Venous stasis dermatitis of right lower extremity Status: Acute Assessment and plan: Impression: Venous stasis dermatitis right lower extremity Plan: Compressive therapy Current Visit: Yes (4) Type 2 diabetes mellitus Status: Chronic Assessment and plan: Impression: Type 2 diabetes mellitus Plan: Present medical therapy Current Visit: No (5) Tinea pedis of left foot Status: Acute Assessment and plan: Impression: Tinea pedis of the right foot Continue present medication to the foot Current Visit: No History of Present Illness Chief complaint: Swelling and erythematous changes of the right lower extremity. History of present illness: Mr. Duarte is a 67 year old male white who we have known seen in the past for chronic venous stasis disease with cellulitis of the right lower extremity. We actually had put him into a [place] wrap for him to function outside hospital and control the swelling that leg. He is got an active fellow and continues to get out and do things and probably sit and keep the leg down more than he should. He claims that he is consistent with fair wraps and the ointment to his toes but is always difficult to know for sure. He apparently reported that he decided to help somebody cut the grass and got somewhat hot apparently had a syncopal episode which brought him to the hospital. Over the last 24 hours he has developed the swelling and erythematous changes of the right lower extremity. There is no obvious blistering or ulcerations present and the changes about his toes are much improved. He was sitting up when we saw him which is going to add to the swelling and erythematous changes are dependent rubor that we are seeing. At this point will go ahead and try to begin to retreat his legs get him in some compression certainly not let him sit with him hanging down. Home Medications Medication Instructions Recorded Confirmed Type Furosemide Tab [Lasix Tab] 40 mg PO DAILY 01/04/15 12/03/16 History Docusate Sodium Cap [Colace Cap] 100 mg PO DAILY PRN 04/06/15 12/03/16 History Ferrous Sulfate Tab [Feosol 325 mg PO TID 04/06/15 12/03/16 History Original Tab] Finasteride 5 mg PO DAILY 04/06/15 12/03/16 History Potassium Chloride Cap/Tab [K Dur] 10 meq PO DAILY 04/06/15 12/03/16 History Aspirin EC Tab 81 mg PO DAILY 04/08/15 12/03/16 History Amiodarone HCl [Pacerone] 200 mg PO DAILY 01/31/16 12/03/16 History Atorvastatin Calcium 20 mg PO BEDTIME 01/31/16 12/03/16 History Calcium (Carb)/Vit D 500-200 1 tablet PO TID 01/31/16 12/03/16 History [Oscal 500 + D] Fluticasone 50 Mcg Nasal [place] 2 spray BOTH NARES DAILY 01/31/16 12/03/16 History [Flonase Nasal [place]] Ipratropium 0.03% Nasal [place] 2 spray BOTH NARES TID 01/31/16 12/03/16 History [Atrovent 0.03% Nasal [place]] [place]-3 Fatty Acids [Fish Oil] 1,000 mg PO BID 01/31/16 12/03/16 History Sertraline [Zoloft] 100 mg PO DAILY 01/31/16 12/03/16 History Tamsulosin HCl 0.4 mg PO BID 01/31/16 12/03/16 History sitaGLIPtin [Januvia] 100 mg PO DAILY 01/31/16 12/03/16 History Ketotifen Fumarate [Ketotifen 1 drop BOTH EYES BID 04/16/16 12/03/16 History 0.025% Oph Soln] glipiZIDE [Glucotrol] 10 mg PO BID W/MEALS #60 tablet 04/22/16 12/03/16 Rx Carvedilol [Coreg] 3.125 mg PO BID #60 tablet 07/23/16 12/03/16 Rx Levothyroxine Tab [Synthroid Tab] 200 mcg PO DAILY@0700 #30 tablet 07/23/16 Rx Clindamycin HCl [Clindamycin Cap] 300 mg PO Q6HR #14 capsule 12/08/16 Rx Allergies Allergy/AdvReac Type Severity Reaction Status Date / Time diphenhydramine Allergy RASH Verified 11/07/16 19:22 [From Benadryl] Penicillins Allergy RASH Verified 11/07/16 19:22 Medical,Surgical,& Family Hx - Medical History Cardio: History of: 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 then a heat stroke also) , Peripheral Neuropathy, TIA HEENT: History of: Ear Problem (HEARING AIDS BOTH EARS) Endocrine: History of: Diabetes Mellitus (IDDM), Dyslipidemia, Thyroid Disorder No history of: Diabetes Mellitus (NIDDM) Respiratory: History of: Bronchitis, COPD, Obstructive Sleep Apnea (ON CPAP AT NIGHT), Pneumonia, Respiratory Problems Renal: History of: Renal Problems (renal insufficiency) Genitourinary: History of: Kidney Stones Gastrointestinal: History of: GERD, Polyps No history of: Gastrointestinal Bleed Musculoskeletal: History of: Back/Neck Problems (CHRONIC (ARTHRITIS)), Musculoskeletal Problems (right leg problems) No history of: Amputation Hematology: History of: Anemia (chronic disease) Other: History of: Skin Problems (patient has had recurrent cellulitis of his right lower extremity) - Surgical History Cardiac Surgeries: Sugical HX of: Cardiac Catheterization, Cardiac Surgery ( aortic valve replacement in September [address] Jaimes) Thoracic Surgeries: Surgical HX of;: Lithotripsy Patient denies;: Lobectomy HEENT Surgeries: Patient denies: Thyroid Surgery Abdominal Surgeries: Surgical HX of: EGD, Hernia Repair (2002) Patient denies: Gastric Bypass Surgery Reproductive Surgeries: Patient denies;: Vasectomy Orthopedic Surgeries: Surgical HX of;: Orthopedic Surgery (left knee surgery) - Family History Family History: Reports;: Family Cancer (SISTER MOTHER), Family Diabetes (DAD), Family Heart Disease (SISTER MOTHER), Family Hypertension (MOM,DAD), Family Psychiatric Problems (COUSIN ALZHEIMERS) Denies;: Family Anesthesia Reaction, Family Stroke - Social History Smoking Status: Never smoker Frequency of Alcohol Use: None Type of Drug Use: None 12 point system: reviewed and no additional remarkable complaints except as stated Exam - Constitutional Vitals: Period Temp Pulse Resp BP Sys/Handley Pulse Ox Last 24 Hr 97.8 F-101.0 F 85-116 18-25 125-158/66-90 94-100 General appearance: mild distress - Head Head exam: Present: normal inspection - ENT ENT exam: Present: normal exam - Neck Neck exam: Present: normal inspection - Respiratory Respiratory exam: Present: rales - Cardiovascular Cardiovascular exam: Present: RRR - GI/Abdominal GI/Abdominal exam: Present: hypoactive bowel sounds, soft. Absent: tenderness - Extremities Exam Extremities exam: Present: other (Right lower extremity with marked edema this changes from the knee down with some erythematous changes around the edges. No clear ulceration or blistering is noted on the leg or ankle or foot.) - Back Exam Back exam: Present: normal inspection - Neurological Exam Neurological exam: Present: alert, oriented X3, CN II-XII intact - Skin Skin exam: Present: normal color, warm, dry Results - Labs CBC & BMP: 03/02/17 05:06 03/02/17 05:06 Lab Results: I have reviewed the past 24 hour labs
[2017-03-02] MEDS ORDERED: SKIN HEALING OINT (AQUAPHOR) 50 GM TUBE TOP PRN (08:20)
[2017-03-02] MEDS ORDERED: CHLORHEXIDINE 4% SOLN 118 ML BOTTLE TOP ONE (08:20)
--- NOTE | 2017-03-02 08:35 | Internal Med History&Physical ---
Assessment and Plan (1) Near syncope Status: Acute Assessment and plan: 67-year-old male admitted to acute care * Near syncope. It is probably related to dehydration and working in extremely hot weather. Patient has been started on IV fluids. I have talked with him about staying out of hot and humid conditions. * Acute cellulitis of the right lower extremity. Patient does use Farrow wraps at home. Will consult surgery to see the patient. He will be started on IV antibiotics. We will ask him to keep the legs elevated * Acute kidney injury. Secondary to low blood pressure and dehydration. He does have chronic renal insufficiency. Hopefully it will improve with fluid * Hypertension. Blood pressure is stable * Diabetes. Continue him on current medications and a sliding scale * History of A. fib. Continue on amiodarone * Discussed with patient. Current Visit: Yes (2) Cellulitis of right leg Status: Acute Current Visit: Yes (3) Chronic renal insufficiency, stage II (mild) Status: Acute Current Visit: No (4) Hypertension Status: Chronic Current Visit: No Qualifiers: Hypertension type: essential hypertension Qualified Code(s): I10 - Essential (primary) hypertension (5) Hypothyroidism Status: Chronic Current Visit: No Qualifiers: Hypothyroidism type: acquired Qualified Code(s): E03.9 - Hypothyroidism, unspecified (6) Obstructive sleep apnea Status: Chronic Current Visit: No (7) S/P AVR (aortic valve replacement) Status: Chronic Current Visit: No (8) Type 2 diabetes mellitus Status: Chronic Current Visit: No History of Present Illness Chief complaint: Near syncopal episode History of present illness: Mr. Duarte is a 67 year old male with history of multiple medical problems including hypertension, diabetes, congestive heart failure, hypothyroidism, renal insufficiency, chronic anemia, recurrent cellulitis of right lower extremity and congenital heart disease. Patient had a near syncopal episode while he was helping his friend cut grass while outside. He was brought to the emergency room. He was tachycardic and flushed with the fever. He felt extremely weak. Patient was evaluated and found to have elevated white count. He lives alone at home. No history of smoking or alcohol use Home Medications Medication Instructions Recorded Confirmed Type Furosemide Tab [Lasix Tab] 40 mg PO DAILY 01/04/15 03/02/17 History Docusate Sodium Cap [Colace Cap] 100 mg PO DAILY PRN 04/06/15 03/02/17 History Ferrous Sulfate Tab [Feosol 325 mg PO TID 04/06/15 03/02/17 History Original Tab] Finasteride 5 mg PO DAILY 04/06/15 03/02/17 History Potassium Chloride Cap/Tab [K Dur] 10 meq PO DAILY 04/06/15 03/02/17 History Aspirin EC Tab 81 mg PO DAILY 04/08/15 03/02/17 History Amiodarone HCl [Pacerone] 200 mg PO DAILY 01/31/16 03/02/17 History Atorvastatin Calcium 40 mg PO BEDTIME 01/31/16 03/02/17 History Calcium (Carb)/Vit D 500-200 1 tablet PO TID 01/31/16 03/02/17 History [Oscal 500 + D] Fluticasone 50 Mcg Nasal [place] 2 spray BOTH NARES DAILY 01/31/16 03/02/17 History [Flonase Nasal [place]] Ipratropium 0.03% Nasal [place] 2 spray BOTH NARES TID 01/31/16 03/02/17 History [Atrovent 0.03% Nasal [place]] [place]-3 Fatty Acids [Fish Oil] 1,000 mg PO BID 01/31/16 03/02/17 History Tamsulosin HCl 0.4 mg PO BID 01/31/16 03/02/17 History Ketotifen Fumarate [Ketotifen 1 drop BOTH EYES BID 04/16/16 03/02/17 History 0.025% Oph Soln] Cholecalciferol (Vitamin D3) 1,000 unit PO DAILY 03/02/17 03/02/17 History [Vitamin D3] Diclofenac Sodium 75 mg PO BID PRN 03/02/17 03/02/17 History Hydrophilic Cream [Kerodex 71] 1 applic TOP DAILY 03/02/17 03/02/17 History Insulin Detemir [Levemir FlexPen] 35 unit SUBCUT BEDTIME 03/02/17 03/02/17 History Ketoconazole 2% Cream [Nizoral 2% 1 applic TOP DAILY 03/02/17 03/02/17 History Cream] Levothyroxine Sodium 300 mcg PO DAILY 03/02/17 03/02/17 History Saxagliptin HCl [Onglyza] 5 mg PO DAILY 03/02/17 03/02/17 History Allergies Allergy/AdvReac Type Severity Reaction Status Date / Time diphenhydramine Allergy RASH Verified 11/07/16 19:22 [From Benadryl] Penicillins Allergy RASH Verified 11/07/16 19:22 Medical,Surgical,& Family Hx - Medical History Cardio: History of: Congenital Heart Disease (VSD repair as child), CHF, CAD, Hypertension, IA, Valvular Heart Disease Psychological: History of: Depression (was hospitalized April 06-- following drug overdose), Previous Suicide Attempt (drug overdose in March 2015 ), Psychiatric Problems (PT reports depressed mood aeb sadness, crying spells, and hopelessness) No history of: Behavior Problems, Violent Behavior Neurology: History of: Cerebrovascular Accident (2010. then a heat stroke also) , Peripheral Neuropathy, TIA HEENT: History of: Ear Problem (HEARING AIDS BOTH EARS) Endocrine: History of: Diabetes Mellitus (IDDM), Dyslipidemia, Thyroid Disorder No history of: Diabetes Mellitus (NIDDM) Respiratory: History of: Bronchitis, COPD, Obstructive Sleep Apnea (ON CPAP AT NIGHT), Pneumonia, Respiratory Problems Renal: History of: Renal Problems (renal insufficiency) Genitourinary: History of: Kidney Stones Gastrointestinal: History of: GERD, Polyps No history of: Gastrointestinal Bleed Musculoskeletal: History of: Back/Neck Problems (CHRONIC (ARTHRITIS)), Musculoskeletal Problems (right leg problems) No history of: Amputation Hematology: History of: Anemia (chronic disease) Other: History of: Skin Problems (patient has had recurrent cellulitis of his right lower extremity) - Surgical History Cardiac Surgeries: Sugical HX of: Cardiac Catheterization, Cardiac Surgery ( aortic valve replacement in September [address] Jaimes) Thoracic Surgeries: Surgical HX of;: Lithotripsy Patient denies;: Lobectomy HEENT Surgeries: Patient denies: Thyroid Surgery Abdominal Surgeries: Surgical HX of: EGD, Hernia Repair (2002) Patient denies: Gastric Bypass Surgery Reproductive Surgeries: Patient denies;: Vasectomy Orthopedic Surgeries: Surgical HX of;: Orthopedic Surgery (left knee surgery) - Family History Family History: Reports;: Family Cancer (SISTER MOTHER), Family Diabetes (DAD), Family Heart Disease (SISTER MOTHER), Family Hypertension (MOM,DAD), Family Psychiatric Problems ([place]IM[place]) Denies;: Family Anesthesia Reaction, Family Stroke - Social History Smoking Status: Never smoker Frequency of Alcohol Use: None Type of Drug Use: None Marital Status: Single Lives With:: Alone Functional capacity: independent ambulation 12 point system: reviewed and no additional remarkable complaints except as stated (As mentioned in HPI) Exam - Constitutional Vitals: Period Temp Pulse Resp BP Sys/[place] Pulse Ox Last 24 Hr 97.8 F-101.0 F 85-116 18-25 125-158/66-90 94-100 Exam: GENERAL: NAD. HEENT: PERRLA. EOMI. Mucous membranes are moist. NECK: Neck is supple. No JVD. No carotid bruit. No thyromegaly. CVS: Regular rate and rhythm. S1 and S2 are normal. Systolic ejection murmur at left lower sternal border RESPIRATORY: Lungs are clear. No rales or rhonchi. ABDOMEN: Soft and nontender. Bowel sounds are present. No hepatosplenomegaly. Large ventral hernia EXT: 1-2+ edema right lower extremity. 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 Cranial nerves II through XII are grossly intact. Motor strength is 5 /5 SKIN: Increased temperature in the right lower extremity. There is no obvious skin break MSK: No obvious deformity. Results - Labs CBC & BMP: 03/02/17 05:06 03/02/17 05:06 Lab Results: I have reviewed the past 24 hour labs
[2017-03-02] MEDS: DOCUSATE SODIUM 100 MG CAPSULE PO SCH ×2 (09:57→22:18)
[2017-03-02] MEDS: INSULIN REGULAR 100 UNIT/ML SUBCUT SCH ×4 (09:57→22:03)
[2017-03-02] MEDS: CLOTRIMAZOLE 1% CREAM 15 GM TUBE TOP SCH (09:58)
[2017-03-02] MEDS ORDERED: DOCUSATE SODIUM 100 MG CAPSULE PO PRN (12:37)
[2017-03-02] MEDS ORDERED: DICLOFENAC SODIUM 75 MG TABLET PO PRN (12:37)
[2017-03-02] MEDS: IPRATROPIUM 0.03% NASAL SPRAY 30 ML BOTTLE BOTH NARES SCH ×2 (14:24→22:17)
[2017-03-02] MEDS: FERROUS SULFATE 325 MG TABLET PO SCH ×2 (14:24→22:18)
[2017-03-02] MEDS: CALCIUM (CARBONATE)/VITAMIN D 500 MG-200 UNIT TABLET PO SCH ×2 (14:25→22:18)
[2017-03-02] MEDS: INSULIN GLARGINE 100 UNIT/ML SUBCUT SCH (22:02)
[2017-03-02] MEDS: ATORVASTATIN 20 MG TABLET PO SCH (22:18)
[2017-03-02] MEDS: KETOTIFEN FUMARATE BOTH EYES SCH (22:18)
[2017-03-02] MEDS: TAMSULOSIN 0.4 MG CAPSULE PO SCH (22:18)
[2017-03-02] MEDS: OMEGA 3 ACID ETHYL ESTERS 1 GM CAPSULE PO SCH (22:18)
[2017-03-03] MEDS: SODIUM CHLORIDE 0.9% 1,000 ML IV SCH ×4 (00:55→15:30)
[2017-03-03] MEDS: CLINDAMYCIN INJ 900 MG in PREMIX 1 EACH IV SCH ×3 (07:01→22:34)
[2017-03-03] MEDS: LEVOTHYROXINE 150 MCG TABLET PO SCH (07:01)
--- NOTE | 2017-03-03 08:49 | Internal Med Progress Note ---
Assessment and Plan (1) Near syncope Status: Acute Assessment and plan: 67-year-old male admitted to acute care * Near syncope. Probably related to dehydration. * Acute cellulitis of the right lower extremity. Continue present treatment * Acute kidney injury. Will recheck labs in the morning * Hypertension. Blood pressure is stable * Diabetes. Continue him on current medications and a sliding scale * History of A. fib. Continue on amiodarone * Discussed with patient. Current Visit: Yes (2) Cellulitis of right leg Status: Acute Current Visit: Yes (3) Chronic renal insufficiency, stage II (mild) Status: Acute Current Visit: No (4) Hypertension Status: Chronic Current Visit: No Qualifiers: Hypertension type: essential hypertension Qualified Code(s): I10 - Essential (primary) hypertension (5) Hypothyroidism Status: Chronic Current Visit: No Qualifiers: Hypothyroidism type: acquired Qualified Code(s): E03.9 - Hypothyroidism, unspecified (6) Obstructive sleep apnea Status: Chronic Current Visit: No (7) S/P AVR (aortic valve replacement) Status: Chronic Current Visit: No (8) Type 2 diabetes mellitus Status: Chronic Current Visit: No Internal Medicine - PN: Subj Interval history: He is feeling much better this morning. He denies any fever. His shortness of breath is better. He denies any chest pain or palpitations Exam (Progress Note) - Constitutional Vitals: Period Temp Pulse Resp BP Sys/[place] Pulse Ox Last 24 Hr 97.4 F-99.0 F 88-98 18-20 118-158/70-94 94-97 Exam: GENERAL: NAD. HEENT: PERRLA. EOMI. NECK: Neck is supple. CVS: Regular rate and rhythm. Systolic ejection murmur at left lower sternal border RESPIRATORY: Lungs are clear. ABDOMEN: Soft and nontender. Large ventral hernia EXT: 1-2+ edema right lower extremity. PHYSICIAN REPRESENTATIVE: Patient is awake, alert and oriented to time place and person. Motor strength is 5 /5 SKIN: Right lower extremity is wrapped up in dressing MSK: No obvious deformity. Results - Labs CBC & BMP: 03/02/17 05:06 03/02/17 05:06 Lab Results: I have reviewed the past 24 hour labs
[2017-03-03] MEDS: CALCIUM (CARBONATE)/VITAMIN D 500 MG-200 UNIT TABLET PO SCH ×3 (08:52→20:40)
[2017-03-03] MEDS: sitaGLIPtin 100 MG TABLET PO SCH (08:53)
[2017-03-03] MEDS: ASPIRIN EC 81 MG TABLET PO SCH (08:53)
[2017-03-03] MEDS: TAMSULOSIN 0.4 MG CAPSULE PO SCH ×2 (08:53→20:40)
[2017-03-03] MEDS: FERROUS SULFATE 325 MG TABLET PO SCH ×3 (08:53→20:40)
[2017-03-03] MEDS: AMIODARONE 200 MG TABLET PO SCH (08:53)
[2017-03-03] MEDS: POTASSIUM CHLORIDE 10 MEQ TABLET PO SCH (08:53)
[2017-03-03] MEDS: DOCUSATE SODIUM 100 MG CAPSULE PO SCH ×2 (08:53→20:40)
[2017-03-03] MEDS: CHOLECALCIFEROL 1,000 UNIT TABLET PO SCH (08:54)
[2017-03-03] MEDS: OMEGA 3 ACID ETHYL ESTERS 1 GM CAPSULE PO SCH ×2 (08:54→20:40)
[2017-03-03] MEDS: FUROSEMIDE 20 MG TABLET PO SCH (08:54)
[2017-03-03] MEDS: FINASTERIDE 5 MG TABLET PO SCH (08:54)
[2017-03-03] MEDS: KETOTIFEN FUMARATE BOTH EYES SCH ×2 (08:54→21:29)
[2017-03-03] MEDS: INSULIN REGULAR 100 UNIT/ML SUBCUT SCH ×4 (08:54→21:27)
[2017-03-03] MEDS: CLOTRIMAZOLE 1% CREAM 15 GM TUBE TOP SCH (09:02)
[2017-03-03] MEDS: KETOCONAZOLE 2% CREAM 30 GM TUBE TOP SCH (09:03)
[2017-03-03] MEDS: HYDROPHILIC TOP SCH (09:05)
[2017-03-03] MEDS: IPRATROPIUM 0.03% NASAL SPRAY 30 ML BOTTLE BOTH NARES SCH ×3 (09:06→20:57)
[2017-03-03] MEDS: FLUTICASONE 50 MCG NASAL SPRAY 16 GM BOTTLE BOTH NARES SCH (09:08)
--- NOTE | 2017-03-03 12:21 | General Surgery Progress Note ---
Assessment and Plan - Time spent with patient Time spent with patient: Less than 30 minutes (1) Cellulitis of right lower extremity Status: Acute Assessment and plan: 03/03/17 Slightly improved RLE cellulitis. Recommend continued antibiotics, local care with compression. We have asked him to try to obtain his Farrow wraps from home as well, both for ease of treating his edema, as well as for us to evaluate how effectively they are managing his problem. Current Visit: No Subjective Patient reports: Present: feels better Exam - Constitutional Vitals: Period Temp Pulse Resp BP Sys/[place] Pulse Ox Last 24 Hr 97.4 F-99.0 F 89-99 18-20 118-158/70-94 94-97 General appearance: no acute distress, over weight - Extremities Exam Extremities exam: Present: other (RLE erythema is slightly improved but still with brawny edema worse on right; no ulcerations or weeping. No calf tenderness. ). Absent: calf tenderness Results - Labs CBC & BMP: 03/02/17 05:06 03/02/17 05:06 Lab Results: I have reviewed the past 24 hour labs
[2017-03-03] MEDS: ATORVASTATIN 20 MG TABLET PO SCH (20:40)
[2017-03-03] MEDS: INSULIN GLARGINE 100 UNIT/ML SUBCUT SCH (21:28)
[2017-03-04] MEDS: SODIUM CHLORIDE 0.9% 1,000 ML IV SCH ×2 (00:29→06:09)
[2017-03-04 05:06] LABS: Basophils % 0.6 % (0.0-0.8); Eosinophils # 0.3 10*3/uL (0.0-0.87); Hemoglobin 12.7 GM/DL (14.0-18.0); Immature Granulocytes % 0.7 %; Immature Granulocytes Absolute 0.05 #; Lymphocytes # 1.1 10*3/uL (1.4-4.0); Mean Corpuscular HGB Conc 32.6 GM/DL (32-36); Mean Corpuscular Hemoglobin 29 PG (27-34); Mean Corpuscular Volume 88.4 FL (87-102); Mean Platelet Volume 13.6 FL (9.6-12.0); Monocytes # 0.7 10*3/uL (0.11-0.8); Monocytes % 10.2 % (1.7-12.7); Neutrophils # 4.5 10*3/uL (1.4-7.4); Neutrophils % 67.5 % (38.7-73.9); Red Blood Count 4.41 MC/CUMM (3.8-5.5); Red Cell Distribution Width 14.9 % (9.3-17.3); White Blood Count 6.7 T/CUMM (4-12)
[2017-03-04 05:31] LABS: Platelet Count 74 T/CUMM (130-400)
[2017-03-04 05:37] LABS: Calcium 8.8 MG/DL (8.5-10.1); Osmolality,Calculated 285.4 MOS/KG (273-304); Potassium 3.7 MMOL/L (3.5-5.1)
[2017-03-04] MEDS: LEVOTHYROXINE 150 MCG TABLET PO SCH (06:07)
[2017-03-04] MEDS: CLINDAMYCIN INJ 900 MG in PREMIX 1 EACH IV SCH ×3 (06:07→22:19)
[2017-03-04 06:22] LABS: Band Neutrophils 1 % (0-10); Eosinophils 3 % (0-10); Hypochromasia Slight; Lymphocytes 12 % (20-55); Myelocytes 1 %; Platelet Estimate Decreased; Segmented Neutrophils 74 % (50-85); Total Cells Counted 100
--- NOTE | 2017-03-04 08:05 | Internal Med Progress Note ---
Assessment and Plan (1) Near syncope Status: Acute Assessment and plan: 67-year-old male admitted to acute care * Near syncope. No further episodes * Acute cellulitis of the right lower extremity. Much better. Blood cultures are negative so far * Acute kidney injury. Renal function is stable. Will decrease fluids * Hypertension. Blood pressure is stable * Diabetes. Continue him on current medications and a sliding scale * History of A. fib. Continue on amiodarone * Discussed with patient. Hopefully home in the morning Current Visit: Yes (2) Cellulitis of right leg Status: Acute Current Visit: Yes (3) Chronic renal insufficiency, stage II (mild) Status: Acute Current Visit: No (4) Hypertension Status: Chronic Current Visit: No Qualifiers: Hypertension type: essential hypertension Qualified Code(s): I10 - Essential (primary) hypertension (5) Hypothyroidism Status: Chronic Current Visit: No Qualifiers: Hypothyroidism type: acquired Qualified Code(s): E03.9 - Hypothyroidism, unspecified (6) Obstructive sleep apnea Status: Chronic Current Visit: No (7) S/P AVR (aortic valve replacement) Status: Chronic Current Visit: No (8) Type 2 diabetes mellitus Status: Chronic Current Visit: No Internal Medicine - PN: Subj Interval history: He is feeling much better this morning. His leg is not hurting. He denies any specific complaints. No chest pain or shortness of breath Exam (Progress Note) - Constitutional Vitals: Period Temp Pulse Resp BP Sys/[place] Pulse Ox Last 24 Hr 96.9 F-98.2 F 87-99 18-20 142-162/74-93 94-98 Exam: GENERAL: NAD. HEENT: PERRLA. EOMI. NECK: Neck is supple. CVS: Regular rate and rhythm. Systolic ejection murmur at left lower sternal border RESPIRATORY: Lungs are clear. ABDOMEN: Soft and nontender. Large ventral hernia EXT: 1-2+ edema right lower extremity. TRANSITIONAL LIVING SPECIALIST: Patient is awake, alert and oriented to time place and person. Motor strength is 5 /5 SKIN: Decrease erythema in the right lower extremity MSK: No obvious deformity. Results - Labs CBC & BMP: 03/04/17 03:59 03/04/17 03:59 Lab Results: I have reviewed the past 24 hour labs
[2017-03-04] MEDS: INSULIN REGULAR 100 UNIT/ML SUBCUT SCH ×4 (09:31→22:20)
[2017-03-04] MEDS: FERROUS SULFATE 325 MG TABLET PO SCH ×3 (09:36→20:20)
[2017-03-04] MEDS: CALCIUM (CARBONATE)/VITAMIN D 500 MG-200 UNIT TABLET PO SCH ×3 (09:36→20:21)
[2017-03-04] MEDS: CHOLECALCIFEROL 1,000 UNIT TABLET PO SCH (09:36)
[2017-03-04] MEDS: sitaGLIPtin 100 MG TABLET PO SCH (09:36)
[2017-03-04] MEDS: FUROSEMIDE 20 MG TABLET PO SCH (09:37)
[2017-03-04] MEDS: POTASSIUM CHLORIDE 10 MEQ TABLET PO SCH (09:37)
[2017-03-04] MEDS: TAMSULOSIN 0.4 MG CAPSULE PO SCH ×2 (09:37→20:21)
[2017-03-04] MEDS: DOCUSATE SODIUM 100 MG CAPSULE PO SCH ×2 (09:38→20:25)
[2017-03-04] MEDS: FINASTERIDE 5 MG TABLET PO SCH (09:38)
[2017-03-04] MEDS: AMIODARONE 200 MG TABLET PO SCH (09:38)
[2017-03-04] MEDS: ASPIRIN EC 81 MG TABLET PO SCH (09:38)
[2017-03-04] MEDS: OMEGA 3 ACID ETHYL ESTERS 1 GM CAPSULE PO SCH ×2 (09:39→20:23)
[2017-03-04] MEDS: IPRATROPIUM 0.03% NASAL SPRAY 30 ML BOTTLE BOTH NARES SCH ×3 (09:43→20:22)
[2017-03-04] MEDS: FLUTICASONE 50 MCG NASAL SPRAY 16 GM BOTTLE BOTH NARES SCH (09:43)
[2017-03-04] MEDS: KETOTIFEN FUMARATE BOTH EYES SCH ×2 (09:46→20:24)
[2017-03-04] MEDS: HYDROPHILIC TOP SCH (15:12)
[2017-03-04] MEDS: KETOCONAZOLE 2% CREAM 30 GM TUBE TOP SCH (15:13)
[2017-03-04] MEDS: CLOTRIMAZOLE 1% CREAM 15 GM TUBE TOP SCH (15:13)
[2017-03-04] MEDS: ATORVASTATIN 20 MG TABLET PO SCH (20:21)
[2017-03-04] MEDS: INSULIN GLARGINE 100 UNIT/ML SUBCUT SCH (20:24)
[2017-03-05] MEDS: LEVOTHYROXINE 150 MCG TABLET PO SCH (06:04)
[2017-03-05] MEDS: CLINDAMYCIN INJ 900 MG in PREMIX 1 EACH IV SCH ×2 (06:04→13:34)
[2017-03-05] MEDS: INSULIN REGULAR 100 UNIT/ML SUBCUT SCH ×2 (08:23→11:16)
--- NOTE | 2017-03-05 08:34 | General Surgery Progress Note ---
Assessment and Plan - Time spent with patient Time spent with patient: Greater than 30 minutes (1) Cellulitis of right lower extremity Status: Acute Assessment and plan: 03/03/17 Slightly improved RLE cellulitis. Recommend continued antibiotics, local care with compression. We have asked him to try to obtain his Farrow wraps from home as well, both for ease of treating his edema, as well as for us to evaluate how effectively they are managing his problem. 03/05/2017. Right lower extremity cellulitis is improved. The patient is now wearing his Farrow wrap garments, albeit less than as designed. He is achieving satisfactory compression to his standards. We discussed compression therapy and the use of his Farrow wraps, and will plan to follow him up as outpatient and our office as needed. Current Visit: No Subjective Patient reports: Present: feels better, pain is less Exam - Constitutional Vitals: Period Temp Pulse Resp BP Sys/[place] Pulse Ox Last 24 Hr 97.6 F-98.8 F 72-85 18-20 130-151/67-85 95-98 General appearance: no acute distress, over weight - Respiratory Respiratory exam: Present: clear to auscultation bilaterally - Extremities Exam Extremities exam: Present: other (Bilateral lower extremity with chronic venous stasis changes, right greater than left. Is fair wrap is in place on the right lower extremity, minus the foot piece. When questioned, the patient says he does not wear the foot piece, due to the fact that his "shoe does not fit over it." We discussed the fact that effective compression especially in this case of mixed venous and lymphatic disease requires that he have consistent compression from the base of the toes all the way to the popliteal space. The patient has had a history of questionable compliance with his compression therapy in the past, but has always gotten successful and satisfactory results with wrapped therapy. He also has gotten good results using his Farrow wrap garment. I again explained to him that he will get better results if he is compliant with the garment if he will wear it as it was manufactured to be used. We talked about modifications and ways he can use it as well as look for opportunities to help drain the area when he is not driving. We have had numerous conversation in the past discussing compression therapy and its causes , treatments, and the fact that this is a lifetime condition which will always require compression, whether or not he has other comorbidities, their degree of control, or if he has interventional or surgical procedures to help correct.) Results - Labs CBC & BMP: 03/04/17 03:59 03/04/17 03:59
--- NOTE | 2017-03-05 08:53 | Discharge Summary ---
Hospital Course - Hospital Course Hospital Course: Patient is a 67-year-old male with history of hypertension, diabetes, congestive heart failure, congenital heart disease, hypothyroidism, anemia, renal insufficiency who was admitted with recurrent cellulitis of right lower extremity and near syncopal episode after staying outside in hot weather for several hours. Patient was started on IV fluids and gradually improved. He was also started on antibiotics. He was seen in consultation by surgery. Compression wraps were placed on his right lower extremity. He tolerated them well. His erythema and swelling has decreased. His blood cultures have been negative. His renal function is much better and is around baseline. He is ready to be discharged home. He will follow-up in office in about 10 days. He can go back to work on next Wednesday. Diagnosis - Discharge Diagnosis (1) Near syncope Status: Acute (2) Cellulitis of right leg Status: Acute (3) Chronic renal insufficiency, stage II (mild) Status: Acute (4) Hypertension Status: Chronic (5) Hypothyroidism Status: Chronic (6) Obstructive sleep apnea Status: Chronic (7) S/P AVR (aortic valve replacement) Status: Chronic (8) Type 2 diabetes mellitus Status: Chronic Discharge Plan - Discharge Data Disposition: Disch To Home/Self Care Condition at Discharge: Stable Discharge Diet: advance to your usual diet Activity: resume usual activities as tolerated - Discharge Medications New Clindamycin HCl [Clindamycin Cap] 300 mg PO Q8HR #30 capsule Continue Furosemide Tab [Lasix Tab] 40 mg PO DAILY Ferrous Sulfate Tab [Feosol Original Tab] 325 mg PO TID Docusate Sodium Cap [Colace Cap] 100 mg PO DAILY PRN PRN Reason: Constipation Finasteride 5 mg PO DAILY Potassium Chloride Cap/Tab [K Dur] 10 meq PO DAILY Ipratropium 0.03% Nasal [place] [Atrovent 0.03% Nasal [place]] 2 spray BOTH NARES TID Fluticasone 50 Mcg Nasal [place] [Flonase Nasal [place]] 2 spray BOTH NARES DAILY Amiodarone HCl [Pacerone] 200 mg PO DAILY Calcium (Carb)/Vit D 500-200 [Oscal 500 + D] 1 tablet PO TID Atorvastatin Calcium 40 mg PO BEDTIME [place]-3 Fatty Acids [Fish Oil] 1,000 mg PO BID Tamsulosin HCl 0.4 mg PO BID Ketotifen Fumarate [Ketotifen 0.025% Oph Soln] 1 drop BOTH EYES BID Levothyroxine Sodium 300 mcg PO DAILY Saxagliptin HCl [Onglyza] 5 mg PO DAILY Ketoconazole 2% Cream [Nizoral 2% Cream] 1 applic TOP DAILY Diclofenac Sodium 75 mg PO BID PRN PRN Reason: Pain Cholecalciferol (Vitamin D3) [Vitamin D3] 1,000 unit PO DAILY Insulin Detemir [Levemir FlexPen] 35 unit SUBCUT BEDTIME Hydrophilic Cream [Kerodex 71] 1 applic TOP DAILY Aspirin EC Tab 81 mg PO DAILY - Follow Up or Referral - Forms/Instructions Additional Discharge Instructions: Appointment in office in 10 days with CBC and a BMP. He can resume work on Wednesday, March 08. Please call in his medication Exam - Constitutional Vitals: Period Temp Pulse Resp BP Sys/[place] Pulse Ox Last 24 Hr 97.6 F-98.8 F 72-85 18-20 130-151/67-85 95-98 Exam: GENERAL: NAD. HEENT: PERRLA. EOMI. NECK: Neck is supple. CVS: Regular rate and rhythm. Systolic ejection murmur at left lower sternal border RESPIRATORY: Lungs are clear. ABDOMEN: Soft and nontender. Large ventral hernia EXT: 1+ edema right lower extremity. 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 Discharge Results Procedures and tests throughout hospitalization: Pending Orders 03/01/17 17:57 Blood Culture Stat Labs on day of discharge: Labs from last 24 hours 03/05/17 03/04/17 03/04/17 07:17 19:57 15:40 POC Glucose 192 H 275 H 224 H 03/04/17 11:21 POC Glucose 253 H Preliminary micro results at discharge 03/01/17 17:57 Blood Culture - Preliminary Blood No growth at 3 days 03/01/17 17:57 Blood Culture - Preliminary Blood No growth at 3 days DS: Provider Date of admission: 03/01/17 20:52 Primary care physician: Christopher Harrington MD Attending physician on admission: Christopher Harrington MD Consults: 03/02/17 08:21 Consult to Physician [CONS] Routine Comment: Consulting Provider: Joe Fritz Consulting Provider Notified: Yes When should Consulting Provider be notified: Now Person Notified: lorrie called Date Notified: 03/02/17 Time Notified: 08:33 Consult to Wound Care - [place] [CONS] Routine Reason for Wound Care: Wound Care Management Consult Comment: needs compressive treatment to right leg 03/04/17 07:28 Consult to Case Mgmt/Social Srvs [CONS] Routine Reason for Case Mgmt/Social Srvs: Discharge Planning Discharging clinician: Christopher Harrington MD
[2017-03-05] MEDS: CALCIUM (CARBONATE)/VITAMIN D 500 MG-200 UNIT TABLET PO SCH ×2 (09:47→15:51)
[2017-03-05] MEDS: ASPIRIN EC 81 MG TABLET PO SCH (09:47)
[2017-03-05] MEDS: FUROSEMIDE 20 MG TABLET PO SCH (09:47)
[2017-03-05] MEDS: DOCUSATE SODIUM 100 MG CAPSULE PO SCH (09:48)
[2017-03-05] MEDS: sitaGLIPtin 100 MG TABLET PO SCH (09:48)
[2017-03-05] MEDS: TAMSULOSIN 0.4 MG CAPSULE PO SCH (09:48)
[2017-03-05] MEDS: CHOLECALCIFEROL 1,000 UNIT TABLET PO SCH (09:48)
[2017-03-05] MEDS: FINASTERIDE 5 MG TABLET PO SCH (09:48)
[2017-03-05] MEDS: FERROUS SULFATE 325 MG TABLET PO SCH ×2 (09:48→15:51)
[2017-03-05] MEDS: POTASSIUM CHLORIDE 10 MEQ TABLET PO SCH (09:48)
[2017-03-05] MEDS: OMEGA 3 ACID ETHYL ESTERS 1 GM CAPSULE PO SCH (09:49)
[2017-03-05] MEDS: AMIODARONE 200 MG TABLET PO SCH (09:49)
[2017-03-05] MEDS: IPRATROPIUM 0.03% NASAL SPRAY 30 ML BOTTLE BOTH NARES SCH ×2 (09:52→15:50)
[2017-03-05] MEDS: FLUTICASONE 50 MCG NASAL SPRAY 16 GM BOTTLE BOTH NARES SCH (09:52)
[2017-03-05] MEDS: KETOCONAZOLE 2% CREAM 30 GM TUBE TOP SCH (09:56)
[2017-03-05] MEDS: KETOTIFEN FUMARATE BOTH EYES SCH (09:56)
[2017-03-05] MEDS: HYDROPHILIC TOP SCH (09:56)
[2017-03-05] MEDS: CLOTRIMAZOLE 1% CREAM 15 GM TUBE TOP SCH (09:56)
[2017-03-05 11:18] VITALS: BP 155/75
== END 2017-03-05 16:56 | disposition home or self-care (01) | DRG 683 ==
LOC: N.ED 15:33 → N.EDINP 20:52 → N.3E 21:44
PROVIDERS: ADMIT Internal Medicine; ATTEND Internal Medicine

== ENCOUNTER 2017-04-28 12:45 | Inpatient (IN) ==
[2017-04-28] MEDS ORDERED: ASPIRIN 325 MG TABLET PO STA (13:58)
[2017-04-28] MEDS ORDERED: NITROGLYCERIN 2% OINT 1 INCH/GM PACK TOP STA (13:58)
[2017-04-28] MEDS ORDERED: MORPHINE 2 MG/1 ML SYRINGE IV STA (13:58)
[2017-04-28] MEDS ORDERED: ONDANSETRON 4 MG/2 ML VIAL IV STA (13:58)
[2017-04-28] MEDS ORDERED: ALUM/MAG/SIMETH/LIDO VISC 1:1 30 ML BOTTLE PO STA (13:58)
--- NOTE | 2017-04-28 14:01 | EKG Report ---
Stationary ECG Study [facility] ER Test Date: 04/28/2017 12:51:37 PM Pat Name: JROGE HANEY Department: Room: Gender: M Welfare Case Worker: Izabella Caldwell : 1950 Requested by: Arjun Blankenship Order Number: [id number] Reading MD: DHAVAL FLORES Intervals [place] Rate: 121 P: 99 ME: 175 QRS: 78 QRSD: 99 T: 89 QT: 299 QTc: 371 Interpretive Statements SINUS TACHYCARDIA SEPTAL INFARCT, AGE UNDETERMINED Electronically Signed On 04-28-17 14:43:44 CDT by DHAVAL FLORES [email or web address]
[2017-04-28] MEDS ORDERED: NITROGLYCERIN 2% OINT 1 INCH/GM PACK TOP ONE (14:03)
[2017-04-28] MEDS ORDERED: ONDANSETRON 4 MG/2 ML VIAL ONE (14:03)
[2017-04-28] MEDS ORDERED: MORPHINE 2 MG/1 ML SYRINGE ONE (14:03)
[2017-04-28] MEDS ORDERED: ASPIRIN 325 MG TABLET ONE (14:03)
[2017-04-28] MEDS ORDERED: ALUM/MAG/SIMETH/LIDO VISC 1:1 30 ML BOTTLE PO ONE (14:04)
[2017-04-28 14:12] LABS: Basophils # 0.1 10*3/uL (0.0-0.2); Basophils % 0.3 % (0.0-0.8); Hematocrit 44.3 VOL% (42.0-52.0); Hemoglobin 15.2 GM/DL (14.0-18.0); Immature Granulocytes % 2.8 %; Immature Granulocytes Absolute 0.61 #; Lymphocytes # 0.5 10*3/uL (1.4-4.0); Lymphocytes % 2.2 % (21.2-54.2); Mean Corpuscular HGB Conc 34.3 GM/DL (32-36); Mean Corpuscular Hemoglobin 30 PG (27-34); Mean Corpuscular Volume 86.2 FL (87-102); Mean Platelet Volume 13.3 FL (9.6-12.0); Monocytes # 1.3 10*3/uL (0.11-0.8); Monocytes % 6.2 % (1.7-12.7); Neutrophils % 88.5 % (38.7-73.9); Platelet Count 92 T/CUMM (130-400); Red Blood Count 5.14 MC/CUMM (3.8-5.5); Red Cell Distribution Width 14.3 % (9.3-17.3); White Blood Count 21.5 T/CUMM (4-12)
[2017-04-28 14:19] LABS: D-Dimer 0.7 MG/L FEU; PT Patient Result 10.7 SECS
[2017-04-28 14:20] LABS: Albumin 3.4 G/DL (3.4-5.0); Bilirubin,Total 1.2 MG/DL (0.2-1.0); Calcium 8.1 MG/DL (8.5-10.1); Magnesium 1.6 MG/DL (1.8-2.4); Osmolality,Calculated 285.1 MOS/KG (273-304); Potassium 4.1 MMOL/L (3.5-5.1); Total Protein 6.5 G/DL (6.4-8.3)
--- NOTE | 2017-04-28 14:20 | XRay Report ---
Exam: XR chest 1V portable Date: 04/28/2017 1:58 PM Indication: Chest pain Comparison: None Technical: 03/01/2017 Findings: Cardiomegaly present with previous sternotomy and valve replacement surgery. Low volume effusions are present left greater than right with underlying left and right basilar atelectasis. ASVD is present. Azygous fissure is also suspected. External cardiac leads are present. Mediastinum is unremarkable. Impression: 1. Cardiomegaly with cardiac decompensation low-volume effusions and atelectatic change 2. Previous sternotomy and valve replacement surgery. PROCEDURE INTERPRETED AT [facility] DEPARTMENT OF RADIOLOGY Final Report Signed by: Dr. Mac Willard
--- NOTE | 2017-04-28 14:20 | Emergency Department Note ---
Arrival - Arrival Chief Complaint: Chest Pain Stated Complaint: chest pain,right leg pain ED Nursing Triage Note: pt states that he started having chest pain aprox 2130. working when he started having pain in upper left chest radiates to right leg. edema to right leg. vomitted this am approx 0400, reports nausea, sweating. denies urinary difficulty. reports urinating and thirsty alot Mode of Arrival: Wheelchair Time Seen by Provider: 04/28/17 13:57 - History of Present Illness HPI Narrative: 67 yo M presents with nausea chest pain fever chills and R leg swelling erythema and pain. States that started yesterday Onset (ago): day(s) (1) Consistency: constant Severity: moderate Quality: cramping Allergies/Adverse Reactions: Allergies Allergy/AdvReac Type Severity Reaction Status Date / Time diphenhydramine Allergy RASH Verified 11/07/16 19:22 [From Benadryl] Penicillins Allergy RASH Verified 11/07/16 19:22 Home Medications: Home Medications Medication Instructions Recorded Confirmed Type Furosemide Tab [Lasix Tab] 40 mg PO DAILY 01/04/15 03/02/17 History Docusate Sodium Cap [Colace Cap] 100 mg PO DAILY PRN 04/06/15 03/02/17 History Ferrous Sulfate Tab [Feosol 325 mg PO TID 04/06/15 03/02/17 History Original Tab] Finasteride 5 mg PO DAILY 04/06/15 03/02/17 History Potassium Chloride Cap/Tab [K Dur] 10 meq PO DAILY 04/06/15 03/02/17 History Aspirin EC Tab 81 mg PO DAILY 04/08/15 03/02/17 History Amiodarone HCl [Pacerone] 200 mg PO DAILY 01/31/16 03/02/17 History Atorvastatin Calcium 40 mg PO BEDTIME 01/31/16 03/02/17 History Calcium (Carb)/Vit D 500-200 1 tablet PO TID 01/31/16 03/02/17 History [Oscal 500 + D] Fluticasone 50 Mcg Nasal [place] 2 spray BOTH NARES DAILY 01/31/16 03/02/17 History [Flonase Nasal [place]] Ipratropium 0.03% Nasal [place] 2 spray BOTH NARES TID 01/31/16 03/02/17 History [Atrovent 0.03% Nasal [place]] [place]-3 Fatty Acids [Fish Oil] 1,000 mg PO BID 01/31/16 03/02/17 History Tamsulosin HCl 0.4 mg PO BID 01/31/16 03/02/17 History Ketotifen Fumarate [Ketotifen 1 drop BOTH EYES BID 04/16/16 03/02/17 History 0.025% Oph Soln] Cholecalciferol (Vitamin D3) 1,000 unit PO DAILY 03/02/17 03/02/17 History [Vitamin D3] Diclofenac Sodium 75 mg PO BID PRN 03/02/17 03/02/17 History Hydrophilic Cream [Kerodex 71] 1 applic TOP DAILY 03/02/17 03/02/17 History Insulin Detemir [Levemir FlexPen] 35 unit SUBCUT BEDTIME 03/02/17 03/02/17 History Ketoconazole 2% Cream [Nizoral 2% 1 applic TOP DAILY 03/02/17 03/02/17 History Cream] Levothyroxine Sodium 300 mcg PO DAILY 03/02/17 03/02/17 History Saxagliptin HCl [Onglyza] 5 mg PO DAILY 03/02/17 03/02/17 History Clindamycin HCl [Clindamycin Cap] 300 mg PO Q8HR #30 capsule 03/05/17 Rx Review of System - Review of System 12 point system: reviewed and no additional remarkable complaints except as stated Medical,Surgical,& Family Hx - Medical History Cardio: History of: Congenital Heart Disease (VSD repair as child), CHF, CAD, Hypertension, [place], Valvular Heart Disease Psychological: History of: Depression (was hospitalized April 06-- following drug overdose), Previous Suicide Attempt (drug overdose in March 2015 ), Psychiatric Problems (PT reports depressed mood aeb sadness, crying spells, and hopelessness) No history of: Behavior Problems, Violent Behavior Neurology: History of: Cerebrovascular Accident (2010. then a heat stroke also) , Peripheral Neuropathy, TIA HEENT: History of: Ear Problem (HEARING AIDS BOTH EARS) Endocrine: History of: Diabetes Mellitus (IDDM), Dyslipidemia, Thyroid Disorder No history of: Diabetes Mellitus (NIDDM) Respiratory: History of: Bronchitis, COPD, Obstructive Sleep Apnea (ON CPAP AT NIGHT), Pneumonia, Respiratory Problems Renal: History of: Renal Problems (renal insufficiency) Genitourinary: History of: Kidney Stones Gastrointestinal: History of: GERD, Polyps No history of: Gastrointestinal Bleed Musculoskeletal: History of: Back/Neck Problems (CHRONIC (ARTHRITIS)), Musculoskeletal Problems (right leg problems) No history of: Amputation Hematology: History of: Anemia (chronic disease) Other: History of: Skin Problems (patient has had recurrent cellulitis of his right lower extremity) - Surgical History Cardiac Surgeries: Sugical HX of: Cardiac Catheterization, Cardiac Surgery ( aortic valve replacement in September [address] Jaimes) Thoracic Surgeries: Surgical HX of;: Lithotripsy Patient denies;: Lobectomy HEENT Surgeries: Patient denies: Thyroid Surgery Abdominal Surgeries: Surgical HX of: EGD, Hernia Repair (2002) Patient denies: Gastric Bypass Surgery Reproductive Surgeries: Patient denies;: Vasectomy Orthopedic Surgeries: Surgical HX of;: Orthopedic Surgery (left knee surgery) - Family History Family History: Reports;: Family Cancer (SISTER MOTHER), Family Diabetes (DAD), Family Heart Disease (SISTER MOTHER), Family Hypertension (MOM,DAD), Family Psychiatric Problems (COUSIN ALZHEIMERS) Denies;: Family Anesthesia Reaction, Family Stroke - Social History Smoking Status: Never smoker Exam Vital Signs: Vital Signs Temperature 98.0 F 04/28/17 13:05 Pulse Rate 117 H 04/28/17 13:13 Respiratory Rate 20 04/28/17 13:13 Blood Pressure 137/70 04/28/17 13:05 - General General appearance: alert, in no apparent distress - Head Head exam: Present: atraumatic, normocephalic - Eye Eye exam: Present: normal appearance, PERRL - ENT ENT exam: Present: normal exam - Neck Neck exam: Present: normal inspection - Chest Chest inspection: Present: normal inspection - Respiratory Respiratory exam: Present: normal lung sounds bilaterally - Cardiovascular Cardiovascular exam: Present: tachycardia - Abdominal Exam Abdominal exam: Present: soft. Absent: tenderness - Extremities Exam Extremities exam: Present: other (erythema warmth good distal pulse) - Back Exam Back exam: Present: normal inspection - Neurological Exam Neurological exam: Present: alert, oriented X3. Absent: motor sensory deficit - Psychiatric Psychiatric exam: Present: normal affect - Skin Skin exam: Present: warm, dry Course Course Narrative: will admit for IV abx and fluids Results - Labs CBC & BMP: 04/28/17 13:15 04/28/17 13:15 Lab Results: I have reviewed the patients labs - Diagnostic Findings Procedure: Chest x-ray: image reviewed by me (no acute acute) Disposition Clinical Impression: Sepsis affecting skin, Cellulitis of right lower extremity Case discussed with: patient Disposition: Still a Patient Condition: Guarded
[2017-04-28] MEDS ORDERED: CLINDAMYCIN INJ 900 MG in PREMIX 1 EACH IV STA (14:29)
[2017-04-28] MEDS ORDERED: VANCOMYCIN INJ 1,500 MG in SODIUM CHLORIDE 0.9% 500 ML IV STA (14:31)
[2017-04-28 14:32] LABS: Band Neutrophils 4 % (0-10); Lymphocytes 1 % (20-55); Platelet Estimate Decreased; Segmented Neutrophils 90 % (50-85)
[2017-04-28 14:33] LABS: Total Cells Counted 100
[2017-04-28] MEDS ORDERED: DEXTROSE 50% 25 GM/50 ML VIAL IV PRN (14:34)
[2017-04-28] MEDS ORDERED: GLUCAGON 1 MG VIAL IM PRN (14:34)
[2017-04-28] MEDS ORDERED: ACETAMINOPHEN 325 MG TABLET PO PRN (14:34)
[2017-04-28] MEDS ORDERED: ONDANSETRON 4 MG/2 ML VIAL IV PRN (14:34)
[2017-04-28] MEDS ORDERED: SODIUM CHLORIDE 0.9% 1,000 ML IV STA (15:59)
--- NOTE | 2017-04-28 17:37 | Internal Med History&Physical ---
Assessment and Plan (1) Cellulitis of right lower extremity Status: Acute Assessment and plan: 67-year-old male admitted to acute care * Cellulitis of right lower extremity. Blood cultures were done. Patient has been started on IV antibiotics. His lactic acid level was slightly elevated. He is being given IV fluids. This is a recurrent problem for patient. He has [place] wraps at home and has been compliant at times. Will consult Dr. Fritz who has been following him in the past * Hypertension. Blood pressure is stable * Diabetes. He will be started on medications as well as sliding scale. His blood sugar was high * Chronic renal insufficiency. Will watch his renal function * DVT prophylaxis. He has history of chronically low platelet count * Discussed with patient Current Visit: Yes (2) Chronic renal insufficiency, stage II (mild) Status: Acute Current Visit: No (3) Diabetes with skin complication Status: Chronic Current Visit: No (4) Hypertension Status: Chronic Current Visit: No Qualifiers: Hypertension type: essential hypertension Qualified Code(s): I10 - Essential (primary) hypertension (5) Hypothyroidism Status: Chronic Current Visit: No Qualifiers: Hypothyroidism type: acquired Qualified Code(s): E03.9 - Hypothyroidism, unspecified (6) Obstructive sleep apnea Status: Chronic Current Visit: No (7) S/P AVR (aortic valve replacement) Status: Chronic Current Visit: No History of Present Illness Chief complaint: Not feeling well History of present illness: Mr. Duarte is a 67 year old male with history of hypertension, diabetes, congenital heart disease, valvular heart disease, depression, chronic renal insufficiency who presented to emergency room not feeling well since last night. He initially felt some pain in the chest and then started having pain in the right lower extremity along with fever and chills. He did started getting short of breath and had some nausea. He felt feverish and just like before when he has been admitted with cellulitis. In the emergency room patient was evaluated and was found to have cellulitis of right lower extremity with elevated white count. Her initial set of cardiac enzymes were negative. He denies any chest pain at this time. He states that he has been taking care of his leg like before. He lives alone at home. He denies any smoking or alcohol use Home Medications Medication Instructions Recorded Confirmed Type Furosemide Tab [Lasix Tab] 40 mg PO DAILY@1400 01/04/15 04/28/17 History Docusate Sodium Cap [Colace Cap] 100 mg PO DAILY PRN 04/06/15 04/28/17 History Ferrous Sulfate Tab [Feosol 325 mg PO TID 04/06/15 04/28/17 History Original Tab] Finasteride 5 mg PO DAILY@1400 04/06/15 04/28/17 History Potassium Chloride Cap/Tab [K Dur] 10 meq PO DAILY@1400 04/06/15 04/28/17 History Aspirin EC Tab 81 mg PO QAM 04/08/15 04/28/17 History Amiodarone HCl [Pacerone] 200 mg PO DAILY@1400 01/31/16 04/28/17 History Atorvastatin Calcium 40 mg PO BEDTIME 01/31/16 04/28/17 History Calcium (Carb)/Vit D 500-200 1 tablet PO TID 01/31/16 04/28/17 History [Oscal 500 + D] Fluticasone 50 Mcg Nasal [place] 2 spray BOTH NARES QAM 01/31/16 04/28/17 History [Flonase Nasal [place]] Ipratropium 0.03% Nasal [place] 2 spray BOTH NARES TID 01/31/16 04/28/17 History [Atrovent 0.03% Nasal [place]] [place]-3 Fatty Acids [Fish Oil] 1,000 mg PO BID 01/31/16 04/28/17 History Tamsulosin HCl 0.4 mg PO BID 01/31/16 04/28/17 History Ketotifen Fumarate [Ketotifen 1 drop BOTH EYES BID 04/16/16 04/28/17 History 0.025% Oph Soln] Cholecalciferol (Vitamin D3) 1,000 unit PO QAM 03/02/17 04/28/17 History [Vitamin D3] Diclofenac Sodium 75 mg PO BID PRN 03/02/17 04/28/17 History Hydrophilic Cream [Kerodex 71] 1 applic TOP DAILY 03/02/17 04/28/17 History Ketoconazole 2% Cream [Nizoral 2% 1 applic TOP DAILY 03/02/17 04/28/17 History Cream] Levothyroxine Sodium 300 mcg PO QAM 03/02/17 04/28/17 History Saxagliptin HCl [Onglyza] 5 mg PO QAM 03/02/17 04/28/17 History Clindamycin HCl [Clindamycin Cap] 300 mg PO Q8HR #30 capsule 03/05/17 04/28/17 Rx Allergies Allergy/AdvReac Type Severity Reaction Status Date / Time diphenhydramine Allergy RASH Verified 11/07/16 19:22 [From Benadryl] Penicillins Allergy RASH Verified 11/07/16 19:22 Medical,Surgical,& Family Hx - Medical History Cardio: History of: Congenital Heart Disease (VSD repair as child), CHF, CAD, Hypertension, [place], Valvular Heart Disease Psychological: History of: Depression (was hospitalized April 06-- following drug overdose), Previous Suicide Attempt (drug overdose in March 2015 ), Psychiatric Problems (PT reports depressed mood aeb sadness, crying spells, and hopelessness) No history of: Behavior Problems, Violent Behavior Neurology: History of: Cerebrovascular Accident (2010. then a heat stroke also) , Peripheral Neuropathy, TIA HEENT: History of: Ear Problem (HEARING AIDS BOTH EARS) Endocrine: History of: Diabetes Mellitus (IDDM), Dyslipidemia, Thyroid Disorder No history of: Diabetes Mellitus (NIDDM) Respiratory: History of: Bronchitis, COPD, Obstructive Sleep Apnea (ON CPAP AT NIGHT), Pneumonia, Respiratory Problems Renal: History of: Renal Problems (renal insufficiency) Genitourinary: History of: Kidney Stones Gastrointestinal: History of: GERD, Polyps No history of: Gastrointestinal Bleed Musculoskeletal: History of: Back/Neck Problems (CHRONIC (ARTHRITIS)), Musculoskeletal Problems (right leg problems) No history of: Amputation Hematology: History of: Anemia (chronic disease) Other: History of: Skin Problems (patient has had recurrent cellulitis of his right lower extremity) - Surgical History Cardiac Surgeries: Sugical HX of: Cardiac Catheterization, Cardiac Surgery ( aortic valve replacement in September [address] Jaimes) Thoracic Surgeries: Surgical HX of;: Lithotripsy Patient denies;: Lobectomy HEENT Surgeries: Patient denies: Thyroid Surgery Abdominal Surgeries: Surgical HX of: EGD, Hernia Repair (2002) Patient denies: Gastric Bypass Surgery Reproductive Surgeries: Patient denies;: Vasectomy Orthopedic Surgeries: Surgical HX of;: Orthopedic Surgery (left knee surgery) - Family History Family History: Reports;: Family Cancer (SISTER MOTHER), Family Diabetes (DAD), Family Heart Disease (SISTER MOTHER), Family Hypertension (MOM,DAD), Family Psychiatric Problems (COUSIN ALZHEIMERS) Denies;: Family Anesthesia Reaction, Family Stroke - Social History Smoking Status: Never smoker Frequency of Alcohol Use: None Type of Drug Use: None Marital Status: Single Lives With:: Alone Functional capacity: independent ambulation 12 point system: reviewed and no additional remarkable complaints except as stated (As mentioned in HPI) Exam - Constitutional Vitals: Period Temp Pulse Resp BP Sys/Handley Pulse Ox Last 24 Hr 98.0 F 117-121 20-20 137/70 Exam: Examination: GENERAL: NAD. HEENT: PERRLA. EOMI. Mucous membranes are moist. NECK: Neck is supple. No JVD. No carotid bruit. No thyromegaly. CVS: Regular rate and rhythm. S1 and S2 are normal. Systolic ejection murmur at left lower sternal border RESPIRATORY: Lungs are clear. No rales or rhonchi. ABDOMEN: Soft and nontender. Bowel sounds are present. No hepatosplenomegaly. Protuberant ventral hernia EXT: 2+ edema of the right lower extremity. [employer] ATTENDANT: Patient is awake, alert and oriented to time place and person. Cranial nerves II through XII are grossly intact. Motor strength is 4/5 SKIN: Warm and dry. Erythematous rash on the right lower extremity with increased temperature. There is sign of infection in between his toes MSK: No obvious deformity. Results - Labs CBC & BMP: 04/28/17 13:15 04/28/17 13:15 Lab Results: I have reviewed the past 24 hour labs
[2017-04-28] MEDS ORDERED: DOCUSATE SODIUM 100 MG CAPSULE PO PRN (17:54)
[2017-04-28] MEDS ORDERED: DICLOFENAC SODIUM 75 MG TABLET PO PRN (17:54)
[2017-04-28] MEDS: SODIUM CHLORIDE 0.45% 1,000 ML IV SCH (18:52)
[2017-04-28 19:15] LABS: Basophils # 0.1 10*3/uL (0.0-0.2); Basophils % 0.3 % (0.0-0.8); Hematocrit 46.6 VOL% (42.0-52.0); Hemoglobin 15.4 GM/DL (14.0-18.0); Immature Granulocytes % 2.5 %; Immature Granulocytes Absolute 0.58 #; Lymphocytes # 0.5 10*3/uL (1.4-4.0); Lymphocytes % 2.1 % (21.2-54.2); Mean Corpuscular Hemoglobin 30 PG (27-34); Mean Corpuscular Volume 89.3 FL (87-102); Mean Platelet Volume 13.4 FL (9.6-12.0); Monocytes # 0.9 10*3/uL (0.11-0.8); Monocytes % 3.9 % (1.7-12.7); Neutrophils # 21.1 10*3/uL (1.4-7.4); Neutrophils % 91.2 % (38.7-73.9); Platelet Count 98 T/CUMM (130-400); Red Blood Count 5.22 MC/CUMM (3.8-5.5); Red Cell Distribution Width 14.6 % (9.3-17.3); White Blood Count 23.2 T/CUMM (4-12)
[2017-04-28 19:44] LABS: Albumin 3.5 G/DL (3.4-5.0); Bilirubin,Total 1.1 MG/DL (0.2-1.0); Calcium 7.8 MG/DL (8.5-10.1)
[2017-04-28 19:44] LABS: Band Neutrophils 2 % (0-10); Lymphocytes 2 % (20-55); Platelet Estimate Decreased; Segmented Neutrophils 94 % (50-85)
[2017-04-28 19:45] LABS: Total Cells Counted 100
[2017-04-28 20:09] LABS: Lactic Acid 5.1 MMOL/L (0.4-2.0)
[2017-04-28] MEDS ORDERED: KETOTIFEN 0.025% BOTH EYES SCH (21:00)
[2017-04-28] MEDS ORDERED: ENOXAPARIN 40 MG/0.4 ML SYRINGE SUBCUT SCH (21:00)
[2017-04-28] MEDS: IPRATROPIUM 0.03% NASAL SPRAY 30 ML BOTTLE BOTH NARES SCH (21:40)
[2017-04-28] MEDS: CLINDAMYCIN INJ 900 MG in PREMIX 1 EACH IV SCH (21:40)
[2017-04-28] MEDS: FERROUS SULFATE 325 MG TABLET PO SCH (21:49)
[2017-04-28] MEDS: CALCIUM (CARBONATE)/VITAMIN D 500 MG-200 UNIT TABLET PO SCH (21:49)
[2017-04-28] MEDS: OMEGA 3 ACID ETHYL ESTERS 1 GM CAPSULE PO SCH (21:49)
[2017-04-28] MEDS: TAMSULOSIN 0.4 MG CAPSULE PO SCH (21:49)
[2017-04-28] MEDS: ATORVASTATIN 40 MG TABLET PO SCH (21:49)
[2017-04-28] MEDS: DOCUSATE SODIUM 100 MG CAPSULE PO SCH (21:50)
[2017-04-28] MEDS: INSULIN LISPRO 100 UNIT/ML SUBCUT SCH (22:13)
[2017-04-29] MEDS: CLINDAMYCIN INJ 900 MG in PREMIX 1 EACH IV SCH ×3 (03:06→18:09)
[2017-04-29] MEDS: SODIUM CHLORIDE 0.45% 1,000 ML IV SCH ×4 (03:07→16:35)
[2017-04-29] MEDS: MORPHINE 2 MG/1 ML SYRINGE IV PRN ×2 (03:39→23:50)
[2017-04-29 03:55] LABS: Apearance,Urine Slightly Hazy (Clear); Bilirubin,Urine Negative (Negative); Blood, Urine Large mg/dL (Negative); Glucose,Urine (UA) >=500 mg/dL (Negative); Ketones,Urine Negative (Negative); Mucus,Urine Occasional /LPF (Occasional); Nitrite,Urine Negative (Negative); Protein,Urine 30 MG/DL; RBC,Urine 129 /HPF (0-4); Squamous Epithelial Cell,Urine Occasional /HPF (0-10); Urine Color Yellow (Yellow); Urine Specific Gravity 1.029 (1.001-1.035); Urine Urobilinogen < 2.0 EU/DL (0.2-1.0); WBC,Urine 1 /HPF (0-6)
[2017-04-29 05:47] LABS: Basophils # 0.1 10*3/uL (0.0-0.2); Basophils % 0.3 % (0.0-0.8); Eosinophils % 0.1 % (0.00-10.9); Hematocrit 39.4 VOL% (42.0-52.0); Immature Granulocytes % 0.9 %; Immature Granulocytes Absolute 0.13 #; Lymphocytes # 0.9 10*3/uL (1.4-4.0); Lymphocytes % 6.2 % (21.2-54.2); Mean Corpuscular Hemoglobin 30 PG (27-34); Mean Corpuscular Volume 86.8 FL (87-102); Mean Platelet Volume 13.1 FL (9.6-12.0); Monocytes % 6.5 % (1.7-12.7); NRBC # 0.02 10*3/uL; Neutrophils # 12.7 10*3/uL (1.4-7.4); Red Blood Count 4.54 MC/CUMM (3.8-5.5); Red Cell Distribution Width 14.8 % (9.3-17.3)
[2017-04-29 05:50] LABS: Hemoglobin 13.4 GM/DL (14.0-18.0); White Blood Count 14.8 T/CUMM (4-12)
[2017-04-29 05:51] LABS: Platelet Count 77 T/CUMM (130-400)
[2017-04-29 06:08] LABS: Hypochromasia 1+; Ovalocytes Slight; Platelet Estimate Decreased
[2017-04-29 06:09] LABS: Giant Platelets Few
[2017-04-29 06:17] LABS: Calcium 7.6 MG/DL (8.5-10.1); Osmolality,Calculated 279.1 MOS/KG (273-304); Potassium 3.8 MMOL/L (3.5-5.1)
[2017-04-29] MEDS: LEVOTHYROXINE 150 MCG TABLET PO SCH (07:14)
--- NOTE | 2017-04-29 08:15 | Internal Med Progress Note ---
Assessment and Plan (1) Cellulitis of right lower extremity Status: Acute Assessment and plan: 67-year-old male admitted to acute care * Cellulitis of right lower extremity. Continue IV antibiotics. White count is better * Decrease IV fluids * Continue CPAP * Hypertension. Blood pressure is stable * Diabetes. Continue home insulin * Chronic renal insufficiency. Will watch his renal function * DVT prophylaxis. Platelet count is around baseline * Discussed with patient Current Visit: Yes (2) Chronic renal insufficiency, stage II (mild) Status: Acute Current Visit: No (3) Diabetes with skin complication Status: Chronic Current Visit: No (4) Hypertension Status: Chronic Current Visit: No Qualifiers: Hypertension type: essential hypertension Qualified Code(s): I10 - Essential (primary) hypertension (5) Hypothyroidism Status: Chronic Current Visit: No Qualifiers: Hypothyroidism type: acquired Qualified Code(s): E03.9 - Hypothyroidism, unspecified (6) Obstructive sleep apnea Status: Chronic Current Visit: No (7) S/P AVR (aortic valve replacement) Status: Chronic Current Visit: No Internal Medicine - PN: Subj Interval history: He is feeling some better this morning. He coughed a lot during the night. No chest pain. Exam (Progress Note) - Constitutional Vitals: Period Temp Pulse Resp BP Sys/Handley Pulse Ox Last 24 Hr 97.2 F-100.6 F 99-121 16-20 113-140/53-74 90-96 Exam: Examination: GENERAL: NAD. HEENT: PERRLA. EOMI. NECK: Neck is supple. CVS: Regular rate and rhythm. S1 and S2 are normal. Systolic ejection murmur at left lower sternal border RESPIRATORY: Lungs are clear. Few rales at bases ABDOMEN: Soft and nontender. EXT: 2+ edema of the right lower extremity. SYSTEM ANALYST: Alert and oriented 3 SKIN: Warm and dry. Fading rash on the right lower extremity. MSK: No obvious deformity. Results - Labs CBC & BMP: 04/29/17 05:24 04/29/17 05:24 Lab Results: I have reviewed the past 24 hour labs
[2017-04-29] MEDS: sitaGLIPtin 100 MG TABLET PO SCH (08:49)
[2017-04-29] MEDS: INSULIN LISPRO 100 UNIT/ML SUBCUT SCH ×4 (08:49→20:42)
[2017-04-29] MEDS: OMEGA 3 ACID ETHYL ESTERS 1 GM CAPSULE PO SCH ×2 (08:50→20:43)
[2017-04-29] MEDS: DOCUSATE SODIUM 100 MG CAPSULE PO SCH ×2 (08:50→20:42)
[2017-04-29] MEDS: ASPIRIN EC 81 MG TABLET PO SCH (08:50)
[2017-04-29] MEDS: PANTOPRAZOLE 40 MG TABLET PO SCH (08:50)
[2017-04-29] MEDS: CALCIUM (CARBONATE)/VITAMIN D 500 MG-200 UNIT TABLET PO SCH ×3 (08:50→20:43)
[2017-04-29] MEDS: FERROUS SULFATE 325 MG TABLET PO SCH ×3 (08:50→20:43)
[2017-04-29] MEDS: TAMSULOSIN 0.4 MG CAPSULE PO SCH ×2 (08:50→20:43)
[2017-04-29] MEDS: IPRATROPIUM 0.03% NASAL SPRAY 30 ML BOTTLE BOTH NARES SCH ×3 (08:51→20:41)
[2017-04-29] MEDS ORDERED: HYDROPHILIC TOP SCH (09:00)
[2017-04-29] MEDS ORDERED: MAGNESIUM SULF RIDER 4 GM in PREMIX 1 EACH IV PRN (09:22)
[2017-04-29] MEDS ORDERED: MAGNESIUM SULF RIDER 2 GM in PREMIX 1 EACH IV PRN (09:22)
[2017-04-29] MEDS: CHOLECALCIFEROL 1,000 UNIT TABLET PO SCH (09:26)
[2017-04-29] MEDS: FLUTICASONE 50 MCG NASAL SPRAY 16 GM BOTTLE BOTH NARES SCH (09:26)
[2017-04-29] MEDS: KETOCONAZOLE 2% CREAM 30 GM TUBE TOP SCH (09:27)
[2017-04-29] MEDS: BENZONATATE 100 MG CAPSULE PO PRN ×2 (10:31→20:42)
--- NOTE | 2017-04-29 11:54 | General Surgery Consult Note ---
Assessment and Plan - Time spent with patient Time spent with patient: Less than 30 minutes (1) Cellulitis of right lower extremity Status: Acute Assessment and plan: Impression: Recurrent cellulitis right lower extremity possibly secondary to underlying venous stasis disease. Plan: Agree with present antibiotics and I will start some compressive therapy to see if we get the edema down to this point. We will get a venous Doppler just to be sure the venous system remains open and no obstructive process present there. Do not think that MRI is going to give us much information to help us do any more than what we do at this time. Current Visit: No (2) Chronic renal insufficiency, stage II (mild) Status: Acute Assessment and plan: Impression: Chronic renal insufficiency Plan: Close observation of the renal function and creatinine. Current Visit: No (3) Type 2 diabetes mellitus Status: Chronic Assessment and plan: Impression: Diabetes type 2 Plan: Medical management Current Visit: No (4) S/P AVR (aortic valve replacement) Status: Chronic Assessment and plan: Impression: Status post aortic valve replacement no seemingly etiology or problems associated with it. Plan: He is getting blood cultures which I think are important but I do not think the cellulitis is related to embolic disease. Current Visit: No (5) Venous stasis dermatitis of right lower extremity Status: Acute Assessment and plan: Impression: Chronic venous stasis disease lower extremities right greater than left. Plan: Continued compressive therapy. Current Visit: No History of Present Illness Chief complaint: Recurrent swelling and erythematous changes of the right lower extremity. History of present illness: Mr. Duarte is a 67 year old male white male who is been in multiple times for recurrent cellulitis of the right lower extremities. We try to keep compression on him to count to keep this process under control since the patient has 2 continue to be on his legs and to function because of the fact he is trying to raise young grandkids. Unfortunately after a period of time of being out he comes back in with more swelling primarily of the right lower extremity. Comes in at this time no significant swelling of the right lower extremity anteriorly with some erythematous changes present. It is an unusual pattern does not seem to completely fit with venous stasis disease at this time. I find nothing on this that looks like is something we could easily open her drain there is no sore down on the feet or the toes at this point. Will try to continue some compressive therapy to this while he is on some IV antibiotics if we get the edema down to some degree and see what changes over time. Will get a venous Doppler study just to be sure there is not any compromise of the venous flow. I do not think that MRI at this time will be of any value. Home Medications Medication Instructions Recorded Confirmed Type Furosemide Tab [Lasix Tab] 40 mg PO DAILY@1400 01/04/15 04/28/17 History Docusate Sodium Cap [Colace Cap] 100 mg PO DAILY PRN 04/06/15 04/28/17 History Ferrous Sulfate Tab [Feosol 325 mg PO TID 04/06/15 04/28/17 History Original Tab] Finasteride 5 mg PO DAILY@1400 04/06/15 04/28/17 History Potassium Chloride Cap/Tab [K Dur] 10 meq PO DAILY@1400 04/06/15 04/28/17 History Aspirin EC Tab 81 mg PO QAM 04/08/15 04/28/17 History Amiodarone HCl [Pacerone] 200 mg PO DAILY@1400 01/31/16 04/28/17 History Atorvastatin Calcium 40 mg PO BEDTIME 01/31/16 04/28/17 History Calcium (Carb)/Vit D 500-200 1 tablet PO TID 01/31/16 04/28/17 History [Oscal 500 + D] Fluticasone 50 Mcg Nasal [place] 2 spray BOTH NARES QAM 01/31/16 04/28/17 History [Flonase Nasal [place]] Ipratropium 0.03% Nasal [place] 2 spray BOTH NARES TID 01/31/16 04/28/17 History [Atrovent 0.03% Nasal [place]] [place]-3 Fatty Acids [Fish Oil] 1,000 mg PO BID 01/31/16 04/28/17 History Tamsulosin HCl 0.4 mg PO BID 01/31/16 04/28/17 History Ketotifen Fumarate [Ketotifen 1 drop BOTH EYES BID 04/16/16 04/28/17 History 0.025% Oph Soln] Cholecalciferol (Vitamin D3) 1,000 unit PO QAM 03/02/17 04/28/17 History [Vitamin D3] Diclofenac Sodium 75 mg PO BID PRN 03/02/17 04/28/17 History Hydrophilic Cream [Kerodex 71] 1 applic TOP DAILY 03/02/17 04/28/17 History Ketoconazole 2% Cream [Nizoral 2% 1 applic TOP DAILY 03/02/17 04/28/17 History Cream] Levothyroxine Sodium 300 mcg PO QAM 03/02/17 04/28/17 History Saxagliptin HCl [Onglyza] 5 mg PO QAM 03/02/17 04/28/17 History Clindamycin HCl [Clindamycin Cap] 300 mg PO Q8HR #30 capsule 03/05/17 04/28/17 Rx Allergies Allergy/AdvReac Type Severity Reaction Status Date / Time diphenhydramine Allergy RASH Verified 11/07/16 19:22 [From Benadryl] Penicillins Allergy RASH Verified 11/07/16 19:22 Medical,Surgical,& Family Hx - Medical History Cardio: History of: 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 then a heat stroke also) , Peripheral Neuropathy, TIA HEENT: History of: Ear Problem (HEARING AIDS BOTH EARS) Endocrine: History of: Diabetes Mellitus (IDDM), Dyslipidemia, Thyroid Disorder No history of: Diabetes Mellitus (NIDDM) Respiratory: History of: Bronchitis, COPD, Obstructive Sleep Apnea (ON CPAP AT NIGHT), Pneumonia, Respiratory Problems Renal: History of: Renal Problems (renal insufficiency) Genitourinary: History of: Kidney Stones Gastrointestinal: History of: GERD, Polyps No history of: Gastrointestinal Bleed Musculoskeletal: History of: Back/Neck Problems (CHRONIC (ARTHRITIS)), Musculoskeletal Problems (right leg problems) No history of: Amputation Hematology: History of: Anemia (chronic disease) Other: History of: Skin Problems (patient has had recurrent cellulitis of his right lower extremity) - Surgical History Cardiac Surgeries: Sugical HX of: Cardiac Catheterization, Cardiac Surgery ( aortic valve replacement in September [address] Jaimes) Thoracic Surgeries: Surgical HX of;: Lithotripsy Patient denies;: Lobectomy HEENT Surgeries: Patient denies: Thyroid Surgery Abdominal Surgeries: Surgical HX of: EGD, Hernia Repair (2002) Patient denies: Gastric Bypass Surgery Reproductive Surgeries: Patient denies;: Vasectomy Orthopedic Surgeries: Surgical HX of;: Orthopedic Surgery (left knee surgery) - Family History Family History: Reports;: Family Cancer (SISTER MOTHER), Family Diabetes (DAD), Family Heart Disease (SISTER MOTHER), Family Hypertension (MOM,DAD), Family Psychiatric Problems (COUSIN ALZHEIMERS) Denies;: Family Anesthesia Reaction, Family Stroke - Social History Smoking Status: Never smoker Frequency of Alcohol Use: None Type of Drug Use: None 12 point system: reviewed and no additional remarkable complaints except as stated Exam - Constitutional Vitals: Period Temp Pulse Resp BP Sys/Handley Pulse Ox Last 24 Hr 97.2 F-100.6 F 95-121 16-20 113-140/53-74 90-96 General appearance: mild distress - Head Head exam: Present: normal inspection - ENT ENT exam: Present: normal exam - Neck Neck exam: Present: normal inspection - Respiratory Respiratory exam: Present: clear to auscultation bilaterally, rales - Cardiovascular Cardiovascular exam: Present: RRR - GI/Abdominal GI/Abdominal exam: Present: hypoactive bowel sounds, soft - Extremities Exam Extremities exam: Present: other (Marked swelling and erythematous changes of the right lower extremity from the knee to the ankle. No ulcerations seen no blistering present no skin breaks at this time. The toes show no sign of any ulcerations or lesions between the toes at this point.) - Back Exam Back exam: Present: normal inspection - Neurological Exam Neurological exam: Present: alert, oriented X3, CN II-XII intact - Skin Skin exam: Present: normal color, warm, dry Results - Labs CBC & BMP: 04/29/17 05:24 04/29/17 05:24 Lab Results: I have reviewed the past 24 hour labs
[2017-04-29] MEDS: POTASSIUM CHLORIDE 10 MEQ TABLET PO SCH (13:55)
[2017-04-29] MEDS: FINASTERIDE 5 MG TABLET PO SCH (13:56)
[2017-04-29] MEDS: AMIODARONE 200 MG TABLET PO SCH (13:56)
[2017-04-29] MEDS: FUROSEMIDE 40 MG TABLET PO SCH (13:56)
--- NOTE | 2017-04-29 14:50 | Ultrasound Report ---
Exam: US venous doppler LE RT Indication: Cellulitis right leg Date: 04/29/2017 227 PM Comparison 11/08/2016 Findings: Grayscale color flow duplex/Doppler imaging and spectral analysis waveform imaging was performed with real-time ultrasound with image stored and captured. The right common femoral, superficial femoral, popliteal saphenous veins are patent with normal augmentation and compression. There is no evidence of popliteal or Souza's cyst. Normal wave form analysis present. Normal color flow. Adenopathy present in the right inguinal region measuring up to 4.2 cm. Impression: 1. No DVT PROCEDURE INTERPRETED AT [facility] DEPARTMENT OF RADIOLOGY Final Report Signed by: Dr. Mac Willard
[2017-04-29] MEDS: CHLORHEXIDINE 4% SOLN 118 ML BOTTLE TOP SCH (15:01)
[2017-04-29] MEDS: SKIN HEALING OINT (AQUAPHOR) 50 GM TUBE TOP SCH (15:01)
[2017-04-29] MEDS: ATORVASTATIN 40 MG TABLET PO SCH (20:43)
[2017-04-29] MEDS: MAGNESIUM CHLORIDE 64 MG TABLET PO SCH (20:43)
[2017-04-30] MEDS: CLINDAMYCIN INJ 900 MG in PREMIX 1 EACH IV SCH ×3 (02:18→17:31)
[2017-04-30 05:43] LABS: Basophils % 0.2 % (0.0-0.8); Eosinophils # 0.2 10*3/uL (0.0-0.87); Eosinophils % 1.5 % (0.00-10.9); Hematocrit 36.9 VOL% (42.0-52.0); Hemoglobin 12.6 GM/DL (14.0-18.0); Immature Granulocytes % 0.7 %; Immature Granulocytes Absolute 0.07 #; Lymphocytes % 10.1 % (21.2-54.2); Mean Corpuscular HGB Conc 34.1 GM/DL (32-36); Mean Corpuscular Hemoglobin 30 PG (27-34); Mean Corpuscular Volume 88.1 FL (87-102); Mean Platelet Volume 12.8 FL (9.6-12.0); Monocytes # 0.9 10*3/uL (0.11-0.8); Monocytes % 9.1 % (1.7-12.7); Neutrophils # 7.8 10*3/uL (1.4-7.4); Neutrophils % 78.4 % (38.7-73.9); Red Blood Count 4.19 MC/CUMM (3.8-5.5); Red Cell Distribution Width 14.8 % (9.3-17.3); White Blood Count 9.9 T/CUMM (4-12)
[2017-04-30 05:44] LABS: Platelet Count 77 T/CUMM (130-400)
[2017-04-30 06:11] LABS: Band Neutrophils 2 % (0-10); Eosinophils 2 % (0-10); Hypochromasia 2+; Lymphocytes 8 % (20-55); Platelet Estimate Decreased; Segmented Neutrophils 82 % (50-85); Total Cells Counted 100
[2017-04-30 06:17] LABS: Calcium 8.1 MG/DL (8.5-10.1); Osmolality,Calculated 282.7 MOS/KG (273-304); Potassium 4.3 MMOL/L (3.5-5.1)
[2017-04-30] MEDS: LEVOTHYROXINE 150 MCG TABLET PO SCH (06:40)
--- NOTE | 2017-04-30 07:56 | XRay Report ---
2 view chest 04/30/2017 4:00 AM Indication: Shortness of breath Comparison: June 28, 2017 at 1705 hours Findings: Cardiomediastinal contours are stable with sternotomy wires Uncoiling of the aorta. Improving interstitial edema pattern. Trace left pleural effusion. No acute osseous abnormalities. Visualized upper abdomen demonstrates no acute pathology. Impression: Improving pulmonary edema pattern with trace left pleural effusion PROCEDURE INTERPRETED AT [facility] DEPARTMENT OF RADIOLOGY Final Report Signed by: Mario Avina
--- NOTE | 2017-04-30 08:38 | Internal Med Progress Note ---
Assessment and Plan (1) Cellulitis of right lower extremity Status: Acute Assessment and plan: 67-year-old male admitted to acute care * Cellulitis of right lower extremity. Continue IV antibiotics. Improving * Hematuria. Will consult urology * Continue CPAP * Hypertension. Blood pressure is stable * Diabetes. Continue home insulin * Chronic renal insufficiency. Improving * DVT prophylaxis. Platelet count is around baseline * Discussed with patient Current Visit: Yes (2) Chronic renal insufficiency, stage II (mild) Status: Acute Current Visit: No (3) Diabetes with skin complication Status: Chronic Current Visit: No (4) Hypertension Status: Chronic Current Visit: No Qualifiers: Hypertension type: essential hypertension Qualified Code(s): I10 - Essential (primary) hypertension (5) Hypothyroidism Status: Chronic Current Visit: No Qualifiers: Hypothyroidism type: acquired Qualified Code(s): E03.9 - Hypothyroidism, unspecified (6) Obstructive sleep apnea Status: Chronic Current Visit: No (7) S/P AVR (aortic valve replacement) Status: Chronic Current Visit: No Internal Medicine - PN: Subj Interval history: He is feeling much better this morning. He has noticed blood in urine for past few days. He was on Lovenox but he had noticed it before it. He is feeling less short of breath Exam (Progress Note) - Constitutional Vitals: Period Temp Pulse Resp BP Sys/Handley Pulse Ox Last 24 Hr 97.3 F-99.0 F 88-107 16-20 125-137/58-75 91-99 Exam: Examination: GENERAL: NAD. NECK: Neck is supple. CVS: Regular rate and rhythm. Systolic ejection murmur at left lower sternal border RESPIRATORY: Lungs are clear. Still has few rales at left base ABDOMEN: Soft and nontender. EXT: 1+ edema of the right lower extremity. POLITICAL SCIENTIST: Alert and oriented 3 SKIN: Warm and dry. Fading rash on the right lower extremity. MSK: No obvious deformity. Results - Labs CBC & BMP: 04/30/17 04:48 04/30/17 04:48 Lab Results: I have reviewed the past 24 hour labs
[2017-04-30] MEDS ORDERED: SKIN HEALING OINT (AQUAPHOR) 50 GM TUBE TOP SCH (09:00)
[2017-04-30] MEDS ORDERED: CHLORHEXIDINE 4% SOLN 118 ML BOTTLE TOP SCH (09:00)
[2017-04-30] MEDS: MAGNESIUM CHLORIDE 64 MG TABLET PO SCH ×2 (09:31→21:45)
[2017-04-30] MEDS: TAMSULOSIN 0.4 MG CAPSULE PO SCH ×3 (09:31→21:42)
[2017-04-30] MEDS: CHOLECALCIFEROL 1,000 UNIT TABLET PO SCH (09:31)
[2017-04-30] MEDS: FERROUS SULFATE 325 MG TABLET PO SCH ×3 (09:31→21:42)
[2017-04-30] MEDS: sitaGLIPtin 100 MG TABLET PO SCH (09:31)
[2017-04-30] MEDS: ASPIRIN EC 81 MG TABLET PO SCH (09:31)
[2017-04-30] MEDS: PANTOPRAZOLE 40 MG TABLET PO SCH (09:31)
[2017-04-30] MEDS: CALCIUM (CARBONATE)/VITAMIN D 500 MG-200 UNIT TABLET PO SCH ×3 (09:31→21:42)
[2017-04-30] MEDS: DOCUSATE SODIUM 100 MG CAPSULE PO SCH ×2 (09:32→21:42)
[2017-04-30] MEDS: OMEGA 3 ACID ETHYL ESTERS 1 GM CAPSULE PO SCH ×2 (09:33→21:41)
[2017-04-30] MEDS: FLUTICASONE 50 MCG NASAL SPRAY 16 GM BOTTLE BOTH NARES SCH (09:33)
[2017-04-30] MEDS: IPRATROPIUM 0.03% NASAL SPRAY 30 ML BOTTLE BOTH NARES SCH ×3 (09:33→21:43)
[2017-04-30] MEDS: INSULIN LISPRO 100 UNIT/ML SUBCUT SCH ×4 (09:33→21:42)
[2017-04-30] MEDS: SKIN HEALING OINT (AQUAPHOR) 50 GM TUBE TOP SCH (09:33)
[2017-04-30] MEDS: CHLORHEXIDINE 4% SOLN 118 ML BOTTLE TOP SCH (09:33)
[2017-04-30] MEDS: SODIUM CHLORIDE 0.45% 1,000 ML IV SCH (09:34)
--- NOTE | 2017-04-30 10:38 | General Surgery Progress Note ---
Assessment and Plan (1) Cellulitis of right lower extremity Status: Acute Assessment and plan: Impression: Recurrent cellulitis right lower extremity possibly secondary to underlying venous stasis disease. Plan: Agree with present antibiotics and I will start some compressive therapy to see if we get the edema down to this point. We will get a venous Doppler just to be sure the venous system remains open and no obstructive process present there. Do not think that MRI is going to give us much information to help us do any more than what we do at this time. 04/30/2017. Patient seems to be progressing fairly nicely but still needs to continue compressive therapy of the right lower extremity. I did continue the present antibiotics at this time keeping his thing clean and dry moisturized. There is nothing for us to debride her clean up at this time. Current Visit: No (2) Chronic renal insufficiency, stage II (mild) Status: Acute Assessment and plan: Impression: Chronic renal insufficiency Plan: Close observation of the renal function and creatinine. Current Visit: No (3) Type 2 diabetes mellitus Status: Chronic Assessment and plan: Impression: Diabetes type 2 Plan: Medical management Current Visit: No (4) S/P AVR (aortic valve replacement) Status: Chronic Assessment and plan: Impression: Status post aortic valve replacement no seemingly etiology or problems associated with it. Plan: He is getting blood cultures which I think are important but I do not think the cellulitis is related to embolic disease. Current Visit: No (5) Venous stasis dermatitis of right lower extremity Status: Acute Assessment and plan: Impression: Chronic venous stasis disease lower extremities right greater than left. Plan: Continued compressive therapy. Current Visit: No Subjective Patient reports: Present: no new complaints, tolerating a regular diet, afebrile Exam - Constitutional Vitals: Period Temp Pulse Resp BP Sys/Handley Pulse Ox Last 24 Hr 97.3 F-99.0 F 88-107 16-20 125-137/58-75 91-99 General appearance: mild distress - Head Head exam: Present: normal inspection - ENT ENT exam: Present: normal exam - Neck Neck exam: Present: normal inspection - Respiratory Respiratory exam: Present: rales, rhonchi - Cardiovascular Cardiovascular exam: Present: RRR - GI/Abdominal GI/Abdominal exam: Present: hypoactive bowel sounds, soft - Extremities Exam Extremities exam: Present: other (Swelling and erythematous changes of the right lower extremity are slightly better difficult to really say because he has been up in the shower and he has been dependent at this time. Compressive therapy is going be important for treatment of this as well as continuing his present antibiotics. There is been nothing to surgically drain or debride at this point so we just need to treat it with the IV antibiotics try to clear up the process this time. Venous Doppler was negative for deep vein thrombosis for this right lower extremity. Nothing else was noted on the exam.) - Back Exam Back exam: Present: normal inspection - Neurological Exam Neurological exam: Present: alert, oriented X3, CN II-XII intact - Skin Skin exam: Present: normal color, warm, dry Results - Labs CBC & BMP: 04/30/17 04:48 04/30/17 04:48 Lab Results: I have reviewed the past 24 hour labs Specialty Discharge - Follow Up or Referrals Follow up with: Joe Fritz MD [Physician] - 2 Weeks
[2017-04-30] MEDS: KETOCONAZOLE 2% CREAM 30 GM TUBE TOP SCH (11:18)
--- NOTE | 2017-04-30 12:04 | Urology Consultation ---
Assessment and Plan - Time spent with patient Time spent with patient: Less than 30 minutes (1) Hematuria Status: Acute Current Visit: Yes Qualifiers: Hematuria type: gross Qualified Code(s): R31.0 - Gross hematuria (2) BPH loc w urin obs/LUTS Status: Acute Assessment and plan: I am going to place him on Flomax at bedtime. We will check a PSA. But this will be manipulated by the Proscar. Current Visit: Yes (3) History of renal stone Status: Acute Assessment and plan: I am going to check a colic CT. Current Visit: Yes History of Present Illness - Data of Consult Patient: new to practice Consult date: 04/30/17 Requesting Physician: Christopher Harrington - Consult Narrative Reason for consult: Hematuria History of present illness: Mr. Duarte is a 67 year old male who I saw 16 years ago with a kidney stone. Have not seen since. He is in the hospital with thrombocytopenia and cellulitis. An episode of gross hematuria. He also has significant prostatism. He is on Proscar whom I do not know who started. But he has nocturia 3-4 times a night. He needs Flomax. I will order a colic CT. He needs cystoscopy at some time. I am off this and I will check back on Wednesday. CC: Christopher Harrington MD - Home Medications and Allergies Home Medications: Home Medications Medication Instructions Recorded Confirmed Type Furosemide Tab [Lasix Tab] 40 mg PO DAILY@1400 01/04/15 04/28/17 History Docusate Sodium Cap [Colace Cap] 100 mg PO DAILY PRN 04/06/15 04/28/17 History Ferrous Sulfate Tab [Feosol 325 mg PO TID 04/06/15 04/28/17 History Original Tab] Finasteride 5 mg PO DAILY@1400 04/06/15 04/28/17 History Potassium Chloride Cap/Tab [K Dur] 10 meq PO DAILY@1400 04/06/15 04/28/17 History Aspirin EC Tab 81 mg PO QAM 04/08/15 04/28/17 History Amiodarone HCl [Pacerone] 200 mg PO DAILY@1400 01/31/16 04/28/17 History Atorvastatin Calcium 40 mg PO BEDTIME 01/31/16 04/28/17 History Calcium (Carb)/Vit D 500-200 1 tablet PO TID 01/31/16 04/28/17 History [Oscal 500 + D] Fluticasone 50 Mcg Nasal [place] 2 spray BOTH NARES QAM 01/31/16 04/28/17 History [Flonase Nasal [place]] Ipratropium 0.03% Nasal [place] 2 spray BOTH NARES TID 01/31/16 04/28/17 History [Atrovent 0.03% Nasal [place]] [place]-3 Fatty Acids [Fish Oil] 1,000 mg PO BID 01/31/16 04/28/17 History Tamsulosin HCl 0.4 mg PO BID 01/31/16 04/28/17 History Ketotifen Fumarate [Ketotifen 1 drop BOTH EYES BID 04/16/16 04/28/17 History 0.025% Oph Soln] Cholecalciferol (Vitamin D3) 1,000 unit PO QAM 03/02/17 04/28/17 History [Vitamin D3] Diclofenac Sodium 75 mg PO BID PRN 03/02/17 04/28/17 History Hydrophilic Cream [Kerodex 71] 1 applic TOP DAILY 03/02/17 04/28/17 History Ketoconazole 2% Cream [Nizoral 2% 1 applic TOP DAILY 03/02/17 04/28/17 History Cream] Levothyroxine Sodium 300 mcg PO QAM 03/02/17 04/28/17 History Saxagliptin HCl [Onglyza] 5 mg PO QAM 03/02/17 04/28/17 History Clindamycin HCl [Clindamycin Cap] 300 mg PO Q8HR #30 capsule 03/05/17 04/28/17 Rx Allergies/Adverse Reactions: Allergies Allergy/AdvReac Type Severity Reaction Status Date / Time diphenhydramine Allergy RASH Verified 11/07/16 19:22 [From Benadryl] Penicillins Allergy RASH Verified 11/07/16 19:22 Medical,Surgical,& Family Hx - Medical History Cardio: History of: Congenital Heart Disease (VSD repair as child), CHF, CAD, Hypertension, [place], Valvular Heart Disease Psychological: History of: Depression (was hospitalized April 06-- following drug overdose), Previous Suicide Attempt (drug overdose in March 2015 ), Psychiatric Problems (PT reports depressed mood aeb sadness, crying spells, and hopelessness) No history of: Behavior Problems, Violent Behavior Neurology: History of: Cerebrovascular Accident (2010. then a heat stroke also) , Peripheral Neuropathy, TIA HEENT: History of: Ear Problem (HEARING AIDS BOTH EARS) Endocrine: History of: Diabetes Mellitus (IDDM), Dyslipidemia, Thyroid Disorder No history of: Diabetes Mellitus (NIDDM) Respiratory: History of: Bronchitis, COPD, Obstructive Sleep Apnea (ON CPAP AT NIGHT), Pneumonia, Respiratory Problems Renal: History of: Renal Problems (renal insufficiency) Genitourinary: History of: Kidney Stones Gastrointestinal: History of: GERD, Polyps No history of: Gastrointestinal Bleed Musculoskeletal: History of: Back/Neck Problems (CHRONIC (ARTHRITIS)), Musculoskeletal Problems (right leg problems) No history of: Amputation Hematology: History of: Anemia (chronic disease) Other: History of: Skin Problems (patient has had recurrent cellulitis of his right lower extremity) - Surgical History Cardiac Surgeries: Sugical HX of: Cardiac Catheterization, Cardiac Surgery ( aortic valve replacement in September [address] Jaimes) Thoracic Surgeries: Surgical HX of;: Lithotripsy Patient denies;: Lobectomy HEENT Surgeries: Patient denies: Thyroid Surgery Abdominal Surgeries: Surgical HX of: EGD, Hernia Repair (2002) Patient denies: Gastric Bypass Surgery Reproductive Surgeries: Patient denies;: Vasectomy Orthopedic Surgeries: Surgical HX of;: Orthopedic Surgery (left knee surgery) - Family History Family History: Reports;: Family Cancer (SISTER MOTHER), Family Diabetes (DAD), Family Heart Disease (SISTER MOTHER), Family Hypertension (MOM,DAD), Family Psychiatric Problems (COUSIN ALZHEIMERS) Denies;: Family Anesthesia Reaction, Family Stroke - Social History Smoking Status: Never smoker Frequency of Alcohol Use: None Type of Drug Use: None Exam - Constitutional Vitals: Period Temp Pulse Resp BP Sys/Handley Pulse Ox Last 24 Hr 97.7 F-99.0 F 88-107 16-20 125-133/58-75 91-99 Results - Labs CBC & BMP: 04/30/17 04:48 04/30/17 04:48 Specialty Discharge - Follow Up or Referrals Follow up with: Joe Fritz MD [Physician] - 2 Weeks
[2017-04-30] MEDS: AMIODARONE 200 MG TABLET PO SCH (13:25)
[2017-04-30] MEDS: POTASSIUM CHLORIDE 10 MEQ TABLET PO SCH (13:25)
[2017-04-30] MEDS: FUROSEMIDE 40 MG TABLET PO SCH (13:26)
[2017-04-30] MEDS: FINASTERIDE 5 MG TABLET PO SCH (13:26)
[2017-04-30] MEDS: BENZONATATE 100 MG CAPSULE PO PRN (17:25)
[2017-04-30] MEDS: ATORVASTATIN 40 MG TABLET PO SCH (21:41)
[2017-05-01] MEDS: SODIUM CHLORIDE 0.45% 1,000 ML IV SCH (02:50)
[2017-05-01] MEDS: CLINDAMYCIN INJ 900 MG in PREMIX 1 EACH IV SCH ×3 (03:10→17:58)
[2017-05-01] MEDS: LEVOTHYROXINE 150 MCG TABLET PO SCH (06:55)
[2017-05-01] MEDS: INSULIN LISPRO 100 UNIT/ML SUBCUT SCH ×4 (09:53→21:39)
[2017-05-01] MEDS: DOCUSATE SODIUM 100 MG CAPSULE PO SCH ×2 (09:54→21:40)
[2017-05-01] MEDS: sitaGLIPtin 100 MG TABLET PO SCH (09:54)
[2017-05-01] MEDS: TAMSULOSIN 0.4 MG CAPSULE PO SCH ×3 (09:54→21:40)
[2017-05-01] MEDS: CHOLECALCIFEROL 1,000 UNIT TABLET PO SCH (09:54)
[2017-05-01] MEDS: PANTOPRAZOLE 40 MG TABLET PO SCH (09:54)
[2017-05-01] MEDS: FERROUS SULFATE 325 MG TABLET PO SCH ×3 (09:54→21:39)
[2017-05-01] MEDS: OMEGA 3 ACID ETHYL ESTERS 1 GM CAPSULE PO SCH ×2 (09:54→21:39)
[2017-05-01] MEDS: CALCIUM (CARBONATE)/VITAMIN D 500 MG-200 UNIT TABLET PO SCH ×3 (09:54→21:40)
[2017-05-01] MEDS: MAGNESIUM CHLORIDE 64 MG TABLET PO SCH ×2 (09:54→21:39)
[2017-05-01] MEDS: ASPIRIN EC 81 MG TABLET PO SCH (09:55)
[2017-05-01] MEDS: FLUTICASONE 50 MCG NASAL SPRAY 16 GM BOTTLE BOTH NARES SCH ×2 (10:20→14:51)
[2017-05-01] MEDS: IPRATROPIUM 0.03% NASAL SPRAY 30 ML BOTTLE BOTH NARES SCH ×3 (10:20→21:39)
[2017-05-01] MEDS: KETOCONAZOLE 2% CREAM 30 GM TUBE TOP SCH (11:25)
[2017-05-01] MEDS: CHLORHEXIDINE 4% SOLN 118 ML BOTTLE TOP SCH (11:25)
[2017-05-01] MEDS: SKIN HEALING OINT (AQUAPHOR) 50 GM TUBE TOP SCH (11:25)
--- NOTE | 2017-05-01 12:58 | CT Report ---
History: Hematuria, history of stones Date: 05/01/2017 Study: CT abdomen and pelvis without contrast Comparison exam: October 07, [address] abdomen and pelvis Technique: Spiral CT sections were obtained from the lung bases to the pubic symphysis without contrast. CT abdomen: There is mild atelectatic change in the left lower lobe. There is trace left pleural effusion. There is no evidence of pneumoperitoneum. There is no radiopaque renal or ureteral stone. There is no pelviectasis. There is no gross renal mass. There is mild diffuse splenomegaly. The liver, adrenal glands, pancreas, and bile ducts are generally unremarkable. There are some calcific density gallstones in the lumen of the gallbladder. There is no gross colon wall thickening. There is no evidence of pneumoperitoneum. The appendix is normal. There is no aneurysm of the mildly calcified abdominal aorta. There are some occasional shotty mesenteric lymph nodes. CT pelvis: There is some nonspecific stranding in the pelvic fat bilaterally without pelvic abscess. There is some mild right inguinal lymphadenopathy. There is a mildly enlarged right external iliac node. There is mild nonspecific diffuse prominence of the prostate gland. There is scattered mild to moderate lumbar spondylosis. There is moderate degenerative disc narrowing scattered in the spine. Impression: No radiopaque renal or ureteral stone Cholelithiasis Nonspecific stranding in the pelvic fat bilaterally without pelvic abscess or definite colonic inflammatory change Nonspecific mild right inguinal lymphadenopathy Trace left pleural effusion. Mild left lower lobe atelectasis The CT exam was performed using one or more of the following dose reduction techniques: Automated exposure control, adjustment of the mA and/or kV according to patient size, or use of iterative reconstruction technique. PROCEDURE INTERPRETED AT [facility] DEPARTMENT OF RADIOLOGY Final Report Signed by: Dr. Laura Alexander
[2017-05-01] MEDS: FINASTERIDE 5 MG TABLET PO SCH (14:48)
[2017-05-01] MEDS: FUROSEMIDE 40 MG TABLET PO SCH (14:48)
[2017-05-01] MEDS: POTASSIUM CHLORIDE 10 MEQ TABLET PO SCH (14:48)
[2017-05-01] MEDS: AMIODARONE 200 MG TABLET PO SCH (14:48)
--- NOTE | 2017-05-01 17:16 | Internal Med Progress Note ---
Assessment and Plan (1) Cellulitis of right lower extremity Status: Acute Current Visit: Yes (2) Diabetes with skin complication Status: Chronic Current Visit: Yes (3) Hypertension Status: Chronic Current Visit: Yes Qualifiers: Hypertension type: essential hypertension Qualified Code(s): I10 - Essential (primary) hypertension Internal Medicine - PN: Subj Interval history: This is a 67 year old male patient of Dr. Harrington with history of HTN, DM, chronic renal insufficiency, dyslipidemia, recurrent lower extremity cellulitis , chronic lymphedema to lower extremities, aortic valve replacement, JESÚS, who presented with another episode of lower extremity cellulitis right leg. He is tolerating antibiotics and compression wrap to right lower leg. The leg is still red and swollen, but the patient reports improvement. Exam (Progress Note) - Constitutional Vitals: Period Temp Pulse Resp BP Sys/Handley Pulse Ox Last 24 Hr 97.2 F-98.2 F 85-98 18-20 133-153/67-80 94-97 General appearance: no acute distress - Head Head exam: Present: normocephalic - Eye Eye exam: Present: EOMI - Respiratory Respiratory exam: Present: clear to auscultation bilaterally - Cardiovascular Cardiovascular exam: Present: regular rate and rhythm - GI/Abdominal GI/Abdominal exam: Present: soft. Absent: tenderness - Extremities Exam Extremities exam: Present: edema ( right lower leg more so than left) - Neurological Exam Neurological exam: Present: alert, oriented X3 - Psychiatric Psychiatric exam: Present: normal mood - Skin Skin exam: Present: warm, dry Results - Labs CBC & BMP: 05/03/17 03:59 05/03/17 03:59 Specialty Discharge - Follow Up or Referrals Follow up with: Joe Fritz MD [Physician] - 2 Weeks
[2017-05-01] MEDS: BENZONATATE 100 MG CAPSULE PO PRN (18:08)
[2017-05-01] MEDS: ATORVASTATIN 40 MG TABLET PO SCH (21:39)
[2017-05-02] MEDS: CLINDAMYCIN INJ 900 MG in PREMIX 1 EACH IV SCH ×3 (03:48→17:46)
[2017-05-02] MEDS: LEVOTHYROXINE 150 MCG TABLET PO SCH (06:42)
[2017-05-02] MEDS: INSULIN LISPRO 100 UNIT/ML SUBCUT SCH ×4 (10:13→21:13)
[2017-05-02] MEDS: FERROUS SULFATE 325 MG TABLET PO SCH ×3 (10:14→21:12)
[2017-05-02] MEDS: DOCUSATE SODIUM 100 MG CAPSULE PO SCH ×2 (10:14→21:12)
[2017-05-02] MEDS: sitaGLIPtin 100 MG TABLET PO SCH (10:14)
[2017-05-02] MEDS: PANTOPRAZOLE 40 MG TABLET PO SCH (10:14)
[2017-05-02] MEDS: CHOLECALCIFEROL 1,000 UNIT TABLET PO SCH (10:15)
[2017-05-02] MEDS: ASPIRIN EC 81 MG TABLET PO SCH (10:15)
[2017-05-02] MEDS: MAGNESIUM CHLORIDE 64 MG TABLET PO SCH ×2 (10:15→21:12)
[2017-05-02] MEDS: CALCIUM (CARBONATE)/VITAMIN D 500 MG-200 UNIT TABLET PO SCH ×3 (10:15→21:12)
[2017-05-02] MEDS: TAMSULOSIN 0.4 MG CAPSULE PO SCH ×3 (10:15→21:13)
[2017-05-02] MEDS: OMEGA 3 ACID ETHYL ESTERS 1 GM CAPSULE PO SCH ×2 (10:15→21:12)
[2017-05-02] MEDS: FLUTICASONE 50 MCG NASAL SPRAY 16 GM BOTTLE BOTH NARES SCH (10:15)
[2017-05-02] MEDS: SKIN HEALING OINT (AQUAPHOR) 50 GM TUBE TOP SCH (10:16)
[2017-05-02] MEDS: IPRATROPIUM 0.03% NASAL SPRAY 30 ML BOTTLE BOTH NARES SCH ×3 (10:16→21:13)
[2017-05-02] MEDS: CHLORHEXIDINE 4% SOLN 118 ML BOTTLE TOP SCH (10:16)
[2017-05-02] MEDS: KETOCONAZOLE 2% CREAM 30 GM TUBE TOP SCH (10:16)
[2017-05-02] MEDS: POTASSIUM CHLORIDE 10 MEQ TABLET PO SCH (14:27)
[2017-05-02] MEDS: FINASTERIDE 5 MG TABLET PO SCH (14:27)
[2017-05-02] MEDS: FUROSEMIDE 40 MG TABLET PO SCH (14:27)
[2017-05-02] MEDS: AMIODARONE 200 MG TABLET PO SCH (14:27)
[2017-05-02] MEDS: BENZONATATE 100 MG CAPSULE PO PRN (21:12)
[2017-05-02] MEDS: ATORVASTATIN 40 MG TABLET PO SCH (21:12)
--- NOTE | 2017-05-02 21:18 | Internal Med Progress Note ---
Assessment and Plan (1) Cellulitis of right lower extremity Status: Acute Current Visit: Yes (2) Diabetes with skin complication Status: Chronic Current Visit: Yes (3) Hypertension Status: Chronic Current Visit: Yes Qualifiers: Hypertension type: essential hypertension Qualified Code(s): I10 - Essential (primary) hypertension (4) Cellulitis of right lower extremity Status: Acute Current Visit: Yes Internal Medicine - PN: Subj Interval history: This is a 67 year old male patient of Dr. Harrington with history of HTN, DM, chronic renal insufficiency, hypothyroid, dyslipidemia, recurrent lower extremity cellulitis, chronic lymphedema to lower extremities, aortic valve replacement, JESÚS, BPH, history of kidney stones, who presented with another episode of lower extremity cellulitis right leg. He is tolerating antibiotics and compression wrap to right lower leg. The leg is still red and swollen, but the patient reports improvement. Right leg much improved today, Wednesday, May 02., and he is closer to discharge. Exam (Progress Note) - Constitutional Vitals: Period Temp Pulse Resp BP Sys/Handley Pulse Ox Last 24 Hr 97.0 F-98.4 F 74-100 16-20 140-153/68-79 94-97 General appearance: no acute distress - Respiratory Respiratory exam: Present: clear to auscultation bilaterally - Cardiovascular Cardiovascular exam: Present: regular rate and rhythm - GI/Abdominal GI/Abdominal exam: Present: soft. Absent: tenderness - Extremities Exam Extremities exam: Present: edema (improved) - Neurological Exam Neurological exam: Present: alert - Psychiatric Psychiatric exam: Present: normal mood - Skin Skin exam: Present: warm, dry Results - Labs CBC & BMP: 05/03/17 03:59 05/03/17 03:59 Specialty Discharge - Follow Up or Referrals Follow up with: Joe Fritz MD [Physician] - 2 Weeks
[2017-05-03] MEDS: CLINDAMYCIN INJ 900 MG in PREMIX 1 EACH IV SCH ×3 (03:05→17:24)
[2017-05-03 04:54] LABS: Basophils # 0.1 10*3/uL (0.0-0.2); Basophils % 0.7 % (0.0-0.8); Eosinophils # 0.3 10*3/uL (0.0-0.87); Eosinophils % 3.6 % (0.00-10.9); Hematocrit 42.5 VOL% (42.0-52.0); Hemoglobin 14.1 GM/DL (14.0-18.0); Immature Granulocytes Absolute 0.24 #; Lymphocytes # 1.4 10*3/uL (1.4-4.0); Lymphocytes % 16.7 % (21.2-54.2); Mean Corpuscular HGB Conc 33.2 GM/DL (32-36); Mean Corpuscular Hemoglobin 29 PG (27-34); Mean Corpuscular Volume 87.3 FL (87-102); Mean Platelet Volume 12.6 FL (9.6-12.0); Monocytes # 0.8 10*3/uL (0.11-0.8); Monocytes % 9.5 % (1.7-12.7); Neutrophils # 5.4 10*3/uL (1.4-7.4); Neutrophils % 66.5 % (38.7-73.9); Platelet Count 127 T/CUMM (130-400); Red Blood Count 4.87 MC/CUMM (3.8-5.5); Red Cell Distribution Width 14.5 % (9.3-17.3); White Blood Count 8.1 T/CUMM (4-12)
[2017-05-03 05:32] LABS: Calcium 8.6 MG/DL (8.5-10.1); Osmolality,Calculated 280.7 MOS/KG (273-304); Potassium 4.3 MMOL/L (3.5-5.1)
[2017-05-03] MEDS: LEVOTHYROXINE 150 MCG TABLET PO SCH (06:55)
[2017-05-03] MEDS: CALCIUM (CARBONATE)/VITAMIN D 500 MG-200 UNIT TABLET PO SCH ×4 (08:56→21:44)
[2017-05-03] MEDS: INSULIN LISPRO 100 UNIT/ML SUBCUT SCH ×5 (08:56→21:46)
[2017-05-03] MEDS: CHOLECALCIFEROL 1,000 UNIT TABLET PO SCH (08:57)
[2017-05-03] MEDS: TAMSULOSIN 0.4 MG CAPSULE PO SCH ×3 (08:57→21:46)
[2017-05-03] MEDS: MAGNESIUM CHLORIDE 64 MG TABLET PO SCH ×2 (08:57→21:44)
[2017-05-03] MEDS: OMEGA 3 ACID ETHYL ESTERS 1 GM CAPSULE PO SCH ×2 (08:57→21:45)
[2017-05-03] MEDS: FERROUS SULFATE 325 MG TABLET PO SCH ×3 (08:58→21:44)
[2017-05-03] MEDS: sitaGLIPtin 100 MG TABLET PO SCH (08:58)
[2017-05-03] MEDS: PANTOPRAZOLE 40 MG TABLET PO SCH (08:58)
[2017-05-03] MEDS: DOCUSATE SODIUM 100 MG CAPSULE PO SCH ×2 (08:58→21:44)
[2017-05-03] MEDS: IPRATROPIUM 0.03% NASAL SPRAY 30 ML BOTTLE BOTH NARES SCH ×3 (08:58→21:46)
[2017-05-03] MEDS: FLUTICASONE 50 MCG NASAL SPRAY 16 GM BOTTLE BOTH NARES SCH (08:58)
[2017-05-03] MEDS: ASPIRIN EC 81 MG TABLET PO SCH (08:58)
--- NOTE | 2017-05-03 09:30 | Internal Med Progress Note ---
Assessment and Plan (1) Cellulitis of right lower extremity Status: Acute Assessment and plan: 67-year-old male admitted to acute care * Cellulitis of right lower extremity. Much better * Hematuria. Dr. Olmstead is following him * Continue CPAP * Hypertension. Blood pressure is stable * Diabetes. Continue home insulin * Chronic renal insufficiency. Improving * DVT prophylaxis. Platelet count is around baseline * Home when okay with the consultants Current Visit: Yes (2) Chronic renal insufficiency, stage II (mild) Status: Acute Current Visit: No (3) Diabetes with skin complication Status: Chronic Current Visit: No (4) Hypertension Status: Chronic Current Visit: No Qualifiers: Hypertension type: essential hypertension Qualified Code(s): I10 - Essential (primary) hypertension (5) Hypothyroidism Status: Chronic Current Visit: No Qualifiers: Hypothyroidism type: acquired Qualified Code(s): E03.9 - Hypothyroidism, unspecified (6) Obstructive sleep apnea Status: Chronic Current Visit: No (7) S/P AVR (aortic valve replacement) Status: Chronic Current Visit: No Internal Medicine - PN: Subj Interval history: He is feeling much better this morning. No more blood in his urine Exam (Progress Note) - Constitutional Vitals: Period Temp Pulse Resp BP Sys/Handley Pulse Ox Last 24 Hr 96.5 F-98.4 F 83-90 16-20 133-148/72-80 91-96 Exam: Examination: GENERAL: NAD. NECK: Neck is supple. CVS: Regular rate and rhythm. Systolic ejection murmur at left lower sternal border RESPIRATORY: Lungs are clear. ABDOMEN: Soft and nontender. EXT: 1+ edema of the right lower extremity. MICROFICHE DUPLICATOR: Alert and oriented 3 SKIN: Warm and dry. Rash is much better. MSK: No obvious deformity. Results - Labs CBC & BMP: 05/03/17 03:59 05/03/17 03:59 Lab Results: I have reviewed the past 24 hour labs Specialty Discharge - Follow Up or Referrals Follow up with: Joe Fritz MD [Physician] - 2 Weeks
--- NOTE | 2017-05-03 10:44 | General Surgery Progress Note ---
Assessment and Plan - Time spent with patient Time spent with patient: Less than 30 minutes (1) Cellulitis of right lower extremity Status: Acute Assessment and plan: Impression: Recurrent cellulitis right lower extremity possibly secondary to underlying venous stasis disease. Plan: Agree with present antibiotics and I will start some compressive therapy to see if we get the edema down to this point. We will get a venous Doppler just to be sure the venous system remains open and no obstructive process present there. Do not think that MRI is going to give us much information to help us do any more than what we do at this time. 04/30/2017. Patient seems to be progressing fairly nicely but still needs to continue compressive therapy of the right lower extremity. I did continue the present antibiotics at this time keeping his thing clean and dry moisturized. There is nothing for us to debride her clean up at this time. 05/03/2017. The cellulitis of the right lower extremity has resolved and the chronic venous stasis swelling has also completely resolved. Okay to discharge him but we need to continue some sort of compressive therapy. I have encouraged him to use the fair wraps and elevate as much as possible. He does a good bit of driving and he hangs his legs down and this is quite creating a chronic problem requiring him to come back and forth at times. I have spoken to him about white count care and high has to deal and modify his lifestyle in order to try to keep this process under control. Still not clear that he fully gets what he has to do in order to prevent this problem at this time but will continue to work with him. Current Visit: Yes (2) Chronic renal insufficiency, stage II (mild) Status: Acute Assessment and plan: Impression: Chronic renal insufficiency Plan: Close observation of the renal function and creatinine. Current Visit: No (3) Type 2 diabetes mellitus Status: Chronic Assessment and plan: Impression: Diabetes type 2 Plan: Medical management Current Visit: No (4) S/P AVR (aortic valve replacement) Status: Chronic Assessment and plan: Impression: Status post aortic valve replacement no seemingly etiology or problems associated with it. Plan: He is getting blood cultures which I think are important but I do not think the cellulitis is related to embolic disease. Current Visit: No (5) Venous stasis dermatitis of right lower extremity Status: Acute Assessment and plan: Impression: Chronic venous stasis disease lower extremities right greater than left. Plan: Continued compressive therapy. Current Visit: No Subjective Patient reports: Present: feels better, pain is less, tolerating a regular diet , afebrile, other (Swelling and erythema the legs are improved) Exam - Constitutional Vitals: Period Temp Pulse Resp BP Sys/Handley Pulse Ox Last 24 Hr 96.5 F-98.4 F 83-90 16-20 133-148/72-80 91-96 General appearance: mild distress - Head Head exam: Present: normal inspection - ENT ENT exam: Present: normal exam - Neck Neck exam: Present: normal inspection - Respiratory Respiratory exam: Present: clear to auscultation bilaterally, rales - Cardiovascular Cardiovascular exam: Present: RRR - GI/Abdominal GI/Abdominal exam: Present: hypoactive bowel sounds, soft - Extremities Exam Extremities exam: Present: other (The swelling of the right lower extremity has significantly improved with compressive therapy as well as the erythematous changes have resolved.) - Back Exam Back exam: Present: normal inspection - Neurological Exam Neurological exam: Present: alert, oriented X3, CN II-XII intact - Skin Skin exam: Present: normal color, warm, dry Results - Labs CBC & BMP: 05/03/17 03:59 05/03/17 03:59 Lab Results: I have reviewed the past 24 hour labs Specialty Discharge - Follow Up or Referrals Follow up with: Joe Fritz MD [Physician] - 1 Month
[2017-05-03] MEDS: SKIN HEALING OINT (AQUAPHOR) 50 GM TUBE TOP SCH (10:45)
[2017-05-03] MEDS: KETOCONAZOLE 2% CREAM 30 GM TUBE TOP SCH (10:45)
[2017-05-03] MEDS: CHLORHEXIDINE 4% SOLN 118 ML BOTTLE TOP SCH (10:45)
[2017-05-03] MEDS: FINASTERIDE 5 MG TABLET PO SCH (13:51)
[2017-05-03] MEDS: POTASSIUM CHLORIDE 10 MEQ TABLET PO SCH (13:51)
[2017-05-03] MEDS: AMIODARONE 200 MG TABLET PO SCH (13:52)
[2017-05-03] MEDS: FUROSEMIDE 40 MG TABLET PO SCH (13:52)
--- NOTE | 2017-05-03 17:10 | Urology Progress Note ---
Assessment and Plan (1) Hematuria Status: Acute Current Visit: Yes Qualifiers: Hematuria type: gross Qualified Code(s): R31.0 - Gross hematuria (2) BPH loc w urin obs/LUTS Status: Acute Assessment and plan: I am going to place him on Flomax at bedtime. We will check a PSA. But this will be manipulated by the Proscar. Current Visit: Yes (3) History of renal stone Status: Acute Assessment and plan: I am going to check a colic CT. Current Visit: Yes Urology - PN: Subj Interval history: Return to see the patient. He has not had any gross hematuria. A noncontrasted CT reveals no masses. There are gallstones. There are no stones. I discussed these findings with the patient. I recommended cystoscopy to evaluate the lower tract. More than likely, he believes from his prostate. But we must rule out bladder pathology. I explained with cystoscopy is. We will do this under local anesthesia in the morning. He may eat breakfast. Exam - Constitutional Vitals: Period Temp Pulse Resp BP Sys/Handley Pulse Ox Last 24 Hr 96.5 F-98.1 F 83-90 16-20 131-148/75-80 91-97 Results - Labs CBC & BMP: 05/03/17 03:59 05/03/17 03:59 Specialty Discharge - Follow Up or Referrals Follow up with: Joe Fritz MD [Physician] - 1 Month
[2017-05-03] MEDS: BENZONATATE 100 MG CAPSULE PO PRN (18:32)
[2017-05-03] MEDS: ATORVASTATIN 40 MG TABLET PO SCH (21:44)
[2017-05-04] MEDS: CLINDAMYCIN INJ 900 MG in PREMIX 1 EACH IV SCH ×2 (02:31→10:04)
[2017-05-04] MEDS: LEVOTHYROXINE 150 MCG TABLET PO SCH (06:14)
[2017-05-04] MEDS ORDERED: LIDOCAINE 2% TOP JELLY 20 ML VIAL INTRAURETH ONE (06:54)
--- NOTE | 2017-05-04 08:37 | Operative Note ---
Date of procedure: 05/04/17 Pre-op diagnosis: BPH with gross hematuria Post-op diagnosis: same Procedure: 67-year-old white male with BPH and lower urinary tract symptoms. He is treated with maximal medical therapy. He has had intermittent gross hematuria. A CT scan that was done without contrast shows no stones and no hydronephrosis and no definite masses. I recommended cystoscopy to evaluate the lower urinary tract. Cystoscopy under local anesthesia was explained at length and in detail. Risks, complications, outcomes, sequela, prognosis explained. Patient understood this and agreed to proceed. Patient brought to the cystoscopy suite prepared and draped in the usual sterile manner. 2% Xylocaine jelly is placed in urethra and bladder for anesthesia. The flexible 16 [place] cystourethroscope passed under direct vision. Urethra is normal. Prostate is 2-1/2 fingerbreadths trilobar obstruction. Large vessels that could bleed easily. Bladder shows 1-2+ trabeculation. There is no lesions or foreign bodies. Ureteral orifices are normal with clear reflux. They are somewhat obscured by the median lobe. Bladder drained cystoscope removed based on procedure well was sent to his room in good condition. Anesthesia: local Surgeon / Physician: Josh Olmstead Estimated blood loss: none Specimens: none sent Condition: stable Disposition: floor Results - Labs CBC & BMP: 05/03/17 03:59 05/03/17 03:59 Discharge Plan - Discharge Medications No Action Furosemide Tab [Lasix Tab] 40 mg PO DAILY@1400 Ferrous Sulfate Tab [Feosol Original Tab] 325 mg PO TID Docusate Sodium Cap [Colace Cap] 100 mg PO DAILY PRN PRN Reason: Constipation Finasteride 5 mg PO DAILY@1400 Potassium Chloride Cap/Tab [K Dur] 10 meq PO DAILY@1400 Ipratropium 0.03% Nasal [place] [Atrovent 0.03% Nasal [place]] 2 spray BOTH NARES TID Fluticasone 50 Mcg Nasal [place] [Flonase Nasal [place]] 2 spray BOTH NARES QAM Amiodarone HCl [Pacerone] 200 mg PO DAILY@1400 Calcium (Carb)/Vit D 500-200 [Oscal 500 + D] 1 tablet PO TID Atorvastatin Calcium 40 mg PO BEDTIME [place]-3 Fatty Acids [Fish Oil] 1,000 mg PO BID Tamsulosin HCl 0.4 mg PO BID Ketotifen Fumarate [Ketotifen 0.025% Oph Soln] 1 drop BOTH EYES BID Levothyroxine Sodium 300 mcg PO QAM Saxagliptin HCl [Onglyza] 5 mg PO QAM Ketoconazole 2% Cream [Nizoral 2% Cream] 1 applic TOP DAILY Diclofenac Sodium 75 mg PO BID PRN PRN Reason: Pain Cholecalciferol (Vitamin D3) [Vitamin D3] 1,000 unit PO QAM Hydrophilic Cream [Kerodex 71] 1 applic TOP DAILY Clindamycin HCl [Clindamycin Cap] 300 mg PO Q8HR #30 capsule Aspirin EC Tab 81 mg PO QAM - Follow Up or Referral Follow Up: Josh Olmstead MD [Physician] - (3-4 weeks) Joe Fritz MD [Physician] - 1 Month - Forms/Instructions
[2017-05-04] MEDS: INSULIN LISPRO 100 UNIT/ML SUBCUT SCH ×2 (08:42→12:57)
[2017-05-04] MEDS: CALCIUM (CARBONATE)/VITAMIN D 500 MG-200 UNIT TABLET PO SCH (09:26)
[2017-05-04] MEDS: sitaGLIPtin 100 MG TABLET PO SCH (09:27)
[2017-05-04] MEDS: OMEGA 3 ACID ETHYL ESTERS 1 GM CAPSULE PO SCH (09:27)
[2017-05-04] MEDS: PANTOPRAZOLE 40 MG TABLET PO SCH (09:27)
[2017-05-04] MEDS: FERROUS SULFATE 325 MG TABLET PO SCH (09:27)
[2017-05-04] MEDS: ASPIRIN EC 81 MG TABLET PO SCH (09:28)
[2017-05-04] MEDS: TAMSULOSIN 0.4 MG CAPSULE PO SCH (09:28)
[2017-05-04] MEDS: DOCUSATE SODIUM 100 MG CAPSULE PO SCH (09:28)
[2017-05-04] MEDS: KETOCONAZOLE 2% CREAM 30 GM TUBE TOP SCH (09:28)
[2017-05-04] MEDS: CHOLECALCIFEROL 1,000 UNIT TABLET PO SCH (09:28)
[2017-05-04] MEDS: MAGNESIUM CHLORIDE 64 MG TABLET PO SCH (09:28)
[2017-05-04] MEDS: CHLORHEXIDINE 4% SOLN 118 ML BOTTLE TOP SCH (09:29)
[2017-05-04] MEDS: IPRATROPIUM 0.03% NASAL SPRAY 30 ML BOTTLE BOTH NARES SCH (09:29)
[2017-05-04] MEDS: FLUTICASONE 50 MCG NASAL SPRAY 16 GM BOTTLE BOTH NARES SCH (09:29)
[2017-05-04] MEDS: SKIN HEALING OINT (AQUAPHOR) 50 GM TUBE TOP SCH (10:55)
--- NOTE | 2017-05-04 11:15 | Discharge Summary ---
Hospital Course - Hospital Course Hospital Course: Patient is a 67-year-old male with history of multiple medical problems including recurrent cellulitis of right lower extremity, hypertension, diabetes , chronic renal insufficiency, A. fib, obstructive sleep apnea who was admitted to acute care with cellulitis of right lower extremity. Patient was started on broad-spectrum antibiotics and was seen in consultation by general surgery. He was also seen in consultation by Dr. Olmstead for hematuria. Patient had history of BPH. He underwent a cystoscopy today. He has improved. Again had long discussions with patient regarding his lower extremity swelling and use of [place] wraps. I will see him in office in next week to 10 days Diagnosis - Discharge Diagnosis (1) Cellulitis of right lower extremity Status: Acute (2) Chronic renal insufficiency, stage II (mild) Status: Acute (3) Diabetes with skin complication Status: Chronic (4) Hypertension Status: Chronic (5) Hypothyroidism Status: Chronic (6) Obstructive sleep apnea Status: Chronic (7) S/P AVR (aortic valve replacement) Status: Chronic Specialty Discharge - Follow Up or Referrals Follow up with: Josh Olmstead MD [Physician] - 06/01/17 1:45 pm (3-4 weeks) Joe Fritz MD [Physician] - 06/14/17 10:00 am Discharge Plan - Discharge Data Disposition: Disch To Home/Self Care Condition at Discharge: Stable Discharge Diet: diabetic diet Activity: resume usual activities as tolerated, other (Keep legs elevated while sitting) - Discharge Medications New Magnesium Chloride [Slow Mag] 64 mg PO BID #60 tablet Skin Healing Oint (Aquaphor) [Aquaphor] 1 applic TOP DAILY applic Continue Furosemide Tab [Lasix Tab] 40 mg PO DAILY@1400 Ferrous Sulfate Tab [Feosol Original Tab] 325 mg PO TID Docusate Sodium Cap [Colace Cap] 100 mg PO DAILY PRN PRN Reason: Constipation Finasteride 5 mg PO DAILY@1400 Potassium Chloride Cap/Tab [K Dur] 10 meq PO DAILY@1400 Ipratropium 0.03% Nasal [place] [Atrovent 0.03% Nasal [place]] 2 spray BOTH NARES TID Fluticasone 50 Mcg Nasal [place] [Flonase Nasal [place]] 2 spray BOTH NARES QAM Amiodarone HCl [Pacerone] 200 mg PO DAILY@1400 Calcium (Carb)/Vit D 500-200 [Oscal 500 + D] 1 tablet PO TID Atorvastatin Calcium 40 mg PO BEDTIME [place]-3 Fatty Acids [Fish Oil] 1,000 mg PO BID Tamsulosin HCl 0.4 mg PO BID Ketotifen Fumarate [Ketotifen 0.025% Oph Soln] 1 drop BOTH EYES BID Levothyroxine Sodium 300 mcg PO QAM Saxagliptin HCl [Onglyza] 5 mg PO QAM Ketoconazole 2% Cream [Nizoral 2% Cream] 1 applic TOP DAILY Diclofenac Sodium 75 mg PO BID PRN PRN Reason: Pain Cholecalciferol (Vitamin D3) [Vitamin D3] 1,000 unit PO QAM Clindamycin HCl [Clindamycin Cap] 300 mg PO Q8HR #20 capsule Hydrophilic Cream [Kerodex 71] 1 applic TOP DAILY Aspirin EC Tab 81 mg PO QAM - Follow Up or Referral Follow Up: Josh Olmstead MD [Physician] - 06/01/17 1:45 pm (3-4 weeks) Joe Fritz MD [Physician] - 06/14/17 10:00 am - Forms/Instructions Additional Discharge Instructions: Appointment in 1 week with TCM. Check CBC and a BMP. Call him in the new medications including clindamycin and Slow-Mag Exam - Constitutional Vitals: Period Temp Pulse Resp BP Sys/Handley Pulse Ox Last 24 Hr 96.5 F-98.3 F 84-88 18-20 125-169/66-85 95-98 Exam: Examination: GENERAL: NAD. NECK: Neck is supple. CVS: Regular rate and rhythm. Systolic ejection murmur at left lower sternal border RESPIRATORY: Lungs are clear. ABDOMEN: Soft and nontender. EXT: 1+ edema of the right lower extremity. AMMONIA BOX OPERATOR: Alert and oriented 3 SKIN: Warm and dry. Rash has resolved MSK: No obvious deformity. Discharge Results Labs on day of discharge: Labs from last 24 hours 05/04/17 05/03/17 05/03/17 07:28 19:46 15:29 POC Glucose 197 H 228 H 160 H 05/03/17 11:35 POC Glucose 300 H DS: Provider Date of admission: 04/28/17 14:34 Primary care physician: Christopher Harrington MD Attending physician on admission: Christopher Harrington MD Consults: 04/28/17 14:34 Consult to Case Mgmt/Social Srvs [CONS] Routine Reason for Case Mgmt/Social Srvs: Discharge Planning 04/29/17 03:27 Consult to Physician [CONS] Routine Comment: pt known to you, cellulitis right lower extremity Consulting Provider: Joe Fritz Consult to Specialist Group: Surgery Person Notified: Kirsten Date Notified: 04/29/17 Time Notified: 08:40 Consult Notification Comment: Consult called again, Kirsten 8:50 a.m -Jackie 04/30/17 09:46 Consult to Physician [CONS] Routine Comment: Consulting Provider: Josh Olmstead Discharging clinician: Christopher Harrington MD
[2017-05-04 11:30] VITALS: BP 109/63
--- NOTE | 2017-05-05 14:09 | Physician Query Form ---
CLICK EDIT DOCUMENT TO SELECT QUERY ANSWER --> OK --> SIGN Zita Christina RN Clinical Retail Support Manager W) [phone] (f) [phone] [email or web address] PROVIDERS: Make your selection(s) from the choices in EACH section by typing an "x" and enter comments in the comment section. Please use your independent medical judgment in providing your response. This request does not imply that any particular answer is desired or expected. CLINICAL INDICATORS: (Providers should not edit this section) Based on documentation of "Acute renal insufficiency" Creatinine from 2.0 to 1.5. GFR from 43 to 60. Monitored with serial lab checks. Treated with 1/2 NS infusion. Clarify which of the following most accurately represents the patient's renal status: ( ) Acute kidney injury (non-traumatic) ( ) Acute renal failure ( x) Acute renal failure with underlying Chronic Kidney Disease (CKD) - please provide stage below ( ) Acute renal failure with pathological renal lesion ( ) Acute renal failure with necrosis ( ) tubular ( ) medullary ( ) cortical ( ) CKD - please provide stage below ( ) End Stage Renal Disease ( ) Acute interstitial nephritis ( ) Hepatorenal syndrome ( ) Other, please specify: ( ) Clinically unable to determine Chronic Kidney Disease Stages Source: National Kidney [employer] Foundation ( ) Stage I (eGFR > or = 90) ( ) Stage II (eGFR 60 - 89) (x ) Stage III (eGFR 30 - 59) ( ) Stage IV (eGFR 15 - 29) ( ) Stage V (eGFR < 15 or dialysis) COMMENTS: PLEASE ALSO DOCUMENT RESPONSE IN PROGRESS NOTES AND/OR DISCHARGE SUMMARY Use of terms such as suspected, likely, or probable (associated with a specific diagnosis that is being evaluated, monitored, or treated as if it exists) are acceptable and can be restated in the discharge summary if not ruled out. MTDD
== END 2017-05-04 13:05 | disposition home or self-care (01) | DRG 603 ==
LOC: N.ED 12:45 → N.EDINP 14:34 → N.TELEN 17:54
PROVIDERS: ADMIT Internal Medicine; ATTEND Internal Medicine